=== PATIENT | male | born 1945 | race Caucasian/White ===

== ENCOUNTER → 2019-11-21 10:15 | Outpatient (CLI) | payer OTHER, SELFPAY ==
--- NOTE | ~2019-11-21 | CT_ITS ---
EXAMINATION: CT sinus wo con DATE: 11/21/2019 10:40 INDICATION: Chronic sinusitis TECHNIQUE: Computed tomography (CT) of the paranasal sinuses was performed without intravenous contra st. The dose-length product (DLP) was 290.62 mGy-cm. Iterative reconstruction was used. COMPARISON: 06/29/2006 FINDINGS: There is normal development and pneumatization of the paranasal sinuses. There is minimal o pacification in the lateral aspect of the right frontal sinus. There is moderate opacification of the anterior and posterior ethmoidal air cells. There is opacification with associated sclerosis in the lateral aspect of the left sphenoid sinus, consistent with chronic sinusitis. There is mild mucosal t hickening of the maxillary sinuses, right greater than left. The bilateral ostiomeatal complexes are occluded. Visualized soft tissues are unremarkable. IMPRESSION: 1. Sinus disease as detailed above. Reviewed, dictated and finalized at location A.
== END ==
PROVIDERS: PCP Family Medicine; Visit Provider Allergy & Immunology
DX: J32.9 Chronic sinusitis, unspecified (principal)
CPT/HCPCS: 70486

== ENCOUNTER → 2022-01-31 14:48 | Outpatient (CLI) | payer OTHER, SELFPAY ==
--- NOTE | ~2022-01-31 | CT_ITS ---
EXAMINATION: CT lung screening DATE: 01/31/2022 15:03 INDICATION: Personal history nicotine dependence, prior smoker with 150 pack year history TECHNIQUE: Computed tomography (CT) of the chest was performed without intravenous contrast. The dose -length product (DLP) was 189.79 mGy-cm. 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 COMPARISON: 08/31/2016 FINDINGS: There is mild emphysema. There is a 3 mm nodule in the left upper lobe. There are stable 4 mm nodules of the left lower lobe. No pleural effusion or pneumothorax. There is mild dependent atele ctasis. The lungs are free of focal airspace opacities. Calcified pulmonary nodules and calcified selvin ateral hilar and mediastinal lymph nodes are consistent with old granulomatous disease. No pathologic ally enlarged thoracic lymph nodes are identified. The heart size is normal. There is moderate thorac ic spondylosis. IMPRESSION: 1. Lung-RADS category 2: Benign appearance or behavior. Continue annual screening with noncontrast lo w-dose chest CT in 12 months. Reviewed, dictated and finalized at location F. RTILITY NURSE IMPRESSION: 1. Lung-RADS category 2: Benign appearance or behavior. Continue annual screeni ng with noncontrast low-dose chest CT in 12 months.
== END ==
PROVIDERS: PCP Family Medicine; Visit Provider Family Medicine
DX: Z12.2 Encounter for screening for malignant neoplasm of respiratory organs (principal); Z87.891 Personal history of nicotine dependence
CPT/HCPCS: 71271

== ENCOUNTER 2023-01-04 23:38 | Emergency (ER) | payer OTHER, SELFPAY ==
--- NOTE | ~2023-01-04 | CT_ITS ---
Noncontrast CT scan of the lumbar spine CLINICAL HISTORY: Back pain TECHNIQUE: Axial noncontrast imaging of the lumbar spine was performed. Sagittal and coronal reformat essie images were constructed. Dose reduction technique was used on this scan by utilizing automated ex posure control and iterative reconstruction technique. The dose-length product (DLP) was 1220.57 mGy- cm. FINDINGS: No fracture or subluxation identified. Vertebral bodies maintain normal height and alignmen t. At L1-L2, there is mild disc bulge and mild facet arthropathy. No antione central canal stenosis or def inite neural foraminal narrowing. At L2-L3, there is disc bulge and moderate facet arthropathy. Questionable minimal central canal sten osis. Probable minimal bilateral neural foraminal narrowing. At L3-L4, there is disc bulge and moderate to advanced facet arthropathy. There is probable moderate to possibly severe central canal stenosis. There is moderate to severe right neural foraminal narrowi ng, and moderate left neural foraminal narrowing. At L4-L5, there is disc bulge and facet arthropathy. There is probable minimal central canal stenosis . There is severe bilateral neural foraminal narrowing. At L5-S1, there is minimal disc bulge. No central canal stenosis. There is mild to moderate bilateral neural foraminal narrowing, left worse than right. Paravertebral soft tissues are unremarkable. Impression: No fracture or subluxation. Moderate degenerative spondylosis, as above. Reviewed, dictated and finalized at [facility]. Impression: No fracture or subluxation. Moderate degenerative spondylosis, as above.
[2023-01-04 23:49] VITALS: BP 131/66; PULSE 92; RESP 14; TEMP 37.2; O2SAT 90
[2023-01-05] MEDS: HYDROcodone/acetaminophen (*CRX) 5-325 MG TABLET 2 TAB PO (05:09)
--- NOTE | 2023-01-05 06:37 | ED.BACK ---
HPI - Back Pain/Injury General Chief Complaint: Back Pain/Injury Stated Complaint: back pain Time Seen by Provider: 01/05/23 04:19 Source: patient History of Present Illness HPI Narrative: This is a 77 year old who presents with complaint of back pain. Patient notes he has chronic back pain. It started to flare a week ago on the left while he was brushing his teeth. He saw a chiropractor Monday and Monday and received some lidocaine injections. Just prior to arrival today, he was bending down and on his knees attempting to clean up coffee grounds on the floor. Note, he was kneeling at the time; pain did not cause him to fall. He required EMS to assist him up due to pain. He experienced acute onset pain on the right side of his back. He states in general heat helps. Pain radiates down his right buttock and into his knee where it terminates. He took a hydrocodone at 8pm through doesn't know the dosage. After it occurred, he called his PCP Nadeem Pickering who prescribed him a muscle relaxer which he took at 6pm. Not chronically on steroids. Denies tearing sensation. No syncope. Denies IVDU. No change in bowel/bladder, neither incontinence nor difficulty initiating a stream/bowel movement. No sensory deficits. Did not hit his head, no LOC. Denies dysuria or fevers. He Related Data Home Medications Medication Instructions Recorded Confirmed aspirin 325 mg tablet 325 mg PO DAILY 04/03/19 11/29/22 cholecalciferol (vitamin D3) 125 5,000 unit PO DAILY 04/03/19 11/29/22 mcg (5,000 unit) tablet (Vitamin D3) multivitamin 1 cap PO DAILY 04/03/19 11/29/22 tamsulosin 0.4 mg capsule 0.4 mg PO DAILY 04/03/19 11/29/22 vit C 250 mg-vit E 90 mg-zinc 40 1 tablet PO BID 04/03/19 11/29/22 mg-copper 1 bt-iqvxha-[id number] capsule fluticasone propionate 50 2 spray intranasal DAILY 12/12/19 11/29/22 mcg/actuation nasal spray,suspension bevacizumab 25 mg/mL intravenous intravitreal 01/06/20 11/29/22 solution (Avastin) ipratropium bromide 17 2 puff inhalation QID 01/06/20 11/29/22 mcg/actuation HFA aerosol inhaler (Atrovent HFA) ipratropium bromide 21 mcg (0.03 2 spray intranasal 05/25/22 11/29/22 %) nasal spray Allergies Allergy/AdvReac Type Severity Reaction Status Date / Time bacitracin Allergy Unknown Unknown Verified 12/05/22 14:08 benzalkonium chloride Allergy Unknown Unknown Verified 12/05/22 14:08 chlorhexidine Allergy Unknown Unknown Verified 12/05/22 14:08 gramicidin D Allergy Unknown Unknown Verified 12/05/22 14:08 hydrocortisone Allergy Unknown Unknown Verified 12/05/22 14:08 latex Allergy Unknown Skin Verified 12/05/22 14:08 Reaction polymyxin B Allergy Unknown Unknown Verified 12/05/22 14:08 BACITRACIN ZINC Allergy Unknown Unknown Uncoded 12/05/22 14:08 NEOMYCIN SULFATE Allergy Unknown Unknown Uncoded 12/05/22 14:08 POLYMYXIN B SULFATE Allergy Unknown Unknown Uncoded 12/05/22 14:08 [facility] Past Medical History Medical History Actinic keratoses Colon polyp Enlarged prostate Hearing loss Overweight (BMI 25.0-29.9) Prediabetes Vasomotor rhinitis Surgical History Surgical History History of left-sided carotid endarterectomy Family History Family History Father Family history of Alzheimer's disease Sibling Family history of malignant neoplasm of breast Mother Family history of malignant neoplasm of stomach Other Diabetes mellitus Family history of arthritis Social History Social History Smoking status: Former smoker Smoking end date: 03/20/17 Alcohol intake: current Lack of Transportation: No Lack of Food: Never True Current Housing: I Have Housing Concerned About Future Housing: No Difficulty Paying Gas/Electric Bills: No Difficulty Paying for Meds: No Cur
[2023-01-05 07:50] VITALS: BP 126/65; PULSE 70; RESP 12; O2SAT 95
== END 2023-01-05 07:52 | disposition home or self-care (01) ==
PROVIDERS: Emergency Provider Student in an Organized Health Care Education/Training Program; PCP Family Medicine
DX: Z87.891 Personal history of nicotine dependence (principal); S39.012A Strain of muscle, fascia and tendon of lower back, initial encounter; M54.30 Sciatica, unspecified side; M47.9 Spondylosis, unspecified; X58.XXXA Exposure to other specified factors, initial encounter
CPT/HCPCS: 72131; 99284; A9270

== ENCOUNTER 2024-05-16 08:02 | Outpatient (CLI) | payer OTHER, SELFPAY | END 2024-05-16 08:03 | disposition home or self-care (01) | LOC: MICIMG 08:03 | PROVIDERS: PCP Family Medicine; Visit Provider Orthopaedic Surgery | DX: M48.02 Spinal stenosis, cervical region (principal); M43.02 Spondylolysis, cervical region; M41.82 Other forms of scoliosis, cervical region | CPT/HCPCS: 72141 ==

== ENCOUNTER 2024-10-04 13:59 | Emergency (ER) | payer OTHER, SELFPAY ==
[2024-10-04 14:00] VITALS: BP 153/75; PULSE 73; RESP 18; TEMP 36.8; O2SAT 97
--- OUTSIDE RECORDS SUMMARY | 2024-10-04 14:01 | XMS_ITS | Encounter Summary ---
Author Organization [facility] Healthcare Address [address] [place] [address] Care Team Providers Care Pinion Polisher Name Role Phone Nadeem Paz MD Primary Care Provider [phone] Cole Albright MD Unavailable [phone] Reason for Visit * Reason Comments hand swelling Left hand, no known injury Encounter Details Date Type Department Care Team (Late st Contact Info) Description 10/04/2024 12:45 PM CDT Office Visit [facility] at [address] [address] Chani Walsh, DIRECTOR OF FINANCIAL AID [address] [place] [id number] Swelling of left hand (Primary Dx); Left hand pain Social History Tobacco Use Types Packs/Day Years Used Date Smoking Tobacco: Former Cigarettes Q uit: 07/10/2016 Smokeless Tobacco: Never Alcohol Use Standard Drinks/Week Comments Yes 0 (1 standard drink = 0.6 oz pur e alcohol) rarely AUDIT-C Answer Date Recorded Q1: How often do you have a drink containing alc ohol? Monthly or less 06/30/2022 Q2: How many drinks containi ng alcohol do you have on a typical day when you are drinking? 1 or 2 06/30/2022 Frequency of Binge Drinking Not on file 06/18 Personal Safety Answer Date Recorded Have you ever been in or are you currently in a harmful physical or emotional relationship or is someone making you feel afraid or unsafe? Denies 06/30/2022 Sex and Gender Information Value Date Recorded Sex Assigned at Not on file Legal Sex Male 1:43 AM GOVERNMENT RELATIONS DIRECTOR Gender Identity Male 04/16/2021 5:35 PM GOVERNMENT RELATIONS DIRECTOR Sexual Orientation Straight 04/16/2021 5: 35 PM GOVERNMENT RELATIONS DIRECTOR documented as of this encounter Last Filed Vital Signs Vital Sign Reading Time Taken Comments Blood Pressure 146/84 10/04/2024 12:49 PM CDT Pulse 87 10/04/2024 12:49 PM CDT Temperature 37 C (98.6 F) 10/04/2024 12:49 PM CDT Respiratory Rate 18 10/04/2024 12:49 PM CDT Oxygen Saturation 99% 10/04/2024 12:49 PM CDT Inhaled Oxygen Concentration - - Weight 84.8 kg (187 lb) 10/04/2024 12:49 PM CDT Height - - Body Mass Index 24.01 05/28/2024 11:19 AM CDT documented in this encounter Patient Instructions * Patient Instructions* Chani Walsh NP - 10/04/2024 12:45 PM CDT 79-year-old male patient presents today with complaints of right hand swelling that began on Monday. Patient reports the hand was significantly swollen until approximately Monday to Monday. Reports on Monday began having significant left hand swelling to the point he was unable to make a fist.Patient's hand remains swollen with what appears to be edema. Patient has no history of heart failure. Patient does have a history of rheumatoid. Patient does have erythema to the hand. Concerned forDVT versus cellulitis versus fluid overload. documented in this encounter Plan of Treatment Not on file documented as of this encounter Visit Diagnoses Diagnosis Swelling of left hand- Primary Left hand pain Pain in soft tissues of limb documented in this encounter Historical Medications * This list may reflect changes made after this encounter. tadalafiL (CIALIS) 20 mg tablet TAKE 1 TABLET BY MOUTH EVERY OTHER DAY NEEDED 09/12/2024 FLUoxetine (PROzac) 20 mg capsule Take 1 capsule (20 mg total) by mouth daily added in this encounter Care Teams Pinion Polisher Relationship Specialty Start Date End Date Nadeem Paz MD PCP - General 06/13/14 Cole Albright MD [id number] [place] [address] Surgeon Colon and Rectal Surgery 07/22/21 documented as of this encounter
--- OUTSIDE RECORDS SUMMARY | 2024-10-04 14:01 | XMS_ITS | Clinical Summary ---
Author Organization [facility] Address [address] [facility] [place] [address] Care Team Providers Care Red Mud Thickener Operator Name Role Phone Nadeem Paz MD Primary Care Provider [phone] [facility],non-owned Affiliates and Associated Physician Practices is amultiple site organization consisting of ambulatory clinics and hospital sitesin [place], [place], [place] and [place]. This disclosure is being madepursuant to the Care Everywhere program and may not contain all information available regarding this patient. Last updated 17.[facility] Allergies Active Allergy Reactions Criticality Noted Date Comments Adhesive Sensitivity Rash Medium 01/23/2021 Red rash, irritation and itching noted. Resolved with benadryl Bacitracin Rash Medium 06/02/2020 Chlorhexidine Gluconate Rash Medium 06/02/2020 Eroirwnl-Qzubjbkjsf-Quwwegmr n Itching Medium 04/03/2019 Medications * Be aware that medications may not be up to date on this document. Alwaysverify current medications with the patient. pentoxifylline CR (TRENTAL) 400 MG tablet Take 1 (one) tablet by mouth 3 times daily 9 Active primidone (MYSOLINE) 50 MG tablet Take 1 (one) tablet by mouth 4 times daily 9 Active rosuvastatin (CRESTOR) 40 MG tablet Take 1 (one) tablet by mouth at bedtime 9 Active tamsulosin (FLOMAX) 0.4 MG capsule Take 1 (one) capsule by mouth 2 times daily 0 Active Multiple Vitamins-Retort Fireman als (PRESERVISION AREDS 2) capsule Take 1 (one) capsule by mouth 2 times daily Active bevacizumab (AVASTIN) 400 MG/16ML injection 5 mg/kg by Intravenous route as needed (intravitreal injection to left eye and 11/10/20) Active Cholecalcifero l (VITAMIN D3 PO) Take 5,000 Units by mouth once daily Active Multiple Vitamin (MULTI-VITAMIN DAILY PO) Take 1 tablet by mouth once daily Active triamcinolone acetonide (KENALOG) 0.1 % cream Apply 1 Dose to affected area as needed Active polyethylene glycol 3350 (MIRALAX) 17 g packet Take 17 (seventeen) g by mouth once daily as needed for Constipation Active aspirin (ASPIRIN) 325 MG tablet Take 1 (one) tablet by mouth once daily 30 tablet 1 Active leflunomide (Arava) 20 MG tablet Take 1 (one) tablet by mouth once daily 3 Active ipratropium (Atrovent) 0.03 % nasal spray Wells 1-2 sprays into each nostril 3 times daily 30 mL 11 3 Active clobetasol (Temovate) 0.05 % cream Apply to affected area 2 times daily Active mupirocin (Bactroban) 2 % ointment Apply to affected area 3 times daily Active Restasis 0.05 % ophthalmic suspension Instill 1 (one) drop into both eyes every 12 hours Active FLUoxetine (PROzac) 20 MG capsule Take 1 (one) capsule by mouth once daily 4 Active lidocaine (Xylocaine) 2 % jelly Apply 1 g to affected area as needed Active Fluticasone Propionate (Xhance) 93 MCG/ACT EXHUIndication s:Nasal congestion Wells 1 spray into each nostril 2 times daily 16 mL 11 4 Active tadalafil (Cialis) 5 MG tablet Take 4 (four) tablets by mouth once daily 2 025 Discontin ued(List Clean-Up) hydroxychloroq uine (Plaquenil) 200 MG tablet Take 1 (one) tablet by mouth once daily 3 025 Discontin ued(List Clean-Up) lidocaine viscous (Xylocaine) 2 % solution 5 mL by Mouth/Throat route once 025 Discontin ued(List Clean-Up) Active Problems Problem Noted Date Diagnosed Date Stenosis of left carotid artery 01/22/2021 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 Carpal tunnel syndrome 06/03/2020 Full thickness rotator cuff tear 06/03/2020 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 Overview (06/03/2020): Description: Follows with Dr Albright Eczema 12/24/2012 Encounters Date Type Department Care Team Description 09/18/2024 11:15 AM CDT Office Visit [facility] - Vascular Surgery [address] [place] [address] Sunita Jade MD Bilateral carotid artery stenosis (Primary Dx) 09/18/2024 10:00 AM CDT - 09/18/2024 11:59 PM CDT Hospital Encounter [facility] [address] [place] [address] Sunita Jade MD Discharge Disposition: Home or Self Care 09/18/2024 Travel from Last 3 Months Immunizations Immunization Administration Dates Next Due Brandizi primary monoval ent 12+ yr 0.3mL Purple cap 01/07/2021,06/07/2020,05/12/2020 INFLUENZA VACCINE 01/07/2021, 0,01/16/2018,2017 INFLUENZA VACCINE, HIGH-DOSE , QUADR. (FLUZONE HIGH-DOSE QUADRIVALENT; 65Y+), 0.7 ML (HD-IIV4) 12/30/2021,01/07/2021 INFLUENZA VACCINE, QUADR. (A FLURIA, FLUZONE QUADRIVALENT; 6MO+) (IIV4) 04/19/2013 TD (ADULT), 5 LF TETANUS TOX OID, ADSORBED, PF 10/30/2020 iNFLUENZA VACCINE, RECOM-COLÓN, QUADR. (FLUBLOCK QUADRIVALENT; 18Y+) (RIV4) 12/11/2018 Social History Tobacco Use Types Packs/Day Years Used Date Smoking Tobacco: Former Cigarettes 3 50 1 968 - 2018 Smokeless Tobacco: Never Tobacco Cessation:Counseling Given: Not Answered Alcohol Use Standard Drinks/Week Comments Yes 0 (1 standard drink = 0.6 oz pur e alcohol) rare AUDIT-C Answer Date Recorded Frequency of Alcohol Consumption Never 03/03/2020 Average Number of Drinks Not on file 020 Frequency of Binge Drinking Not on file 02/17 PHQ-2 Answer Date Recorded Patient Health Questionnaire-2 Score 0 09/18/2024 Sex and Gender Information Value Date Recorded Sex Assigned at Male 03/03/2021 12:51 PM COLD STRIP ROLLER Legal Sex Male 4:31 AM COLD STRIP ROLLER Gender Identity Male 03/03/2021 12:51 PM COLD STRIP ROLLER Sexual Orientation Not on file Last Filed Vital Signs Vital Sign Reading Time Taken Comments Blood Pressure 154/74 09/18/2024 11:57 AM CDT Pulse 76 09/18/2024 11:51 AM CDT Temperature 36.4 C (97.6 F) 09/18/2024 11:51 AM CDT Respiratory Rate 18 08/31/2022 12:57 PM CDT Oxygen Saturation 98% 09/18/2024 11:51 AM CDT Inhaled Oxygen Concentration - - Weight 88.5 kg (195 lb) 09/18/2024 11:51 AM CDT Height 185.4 cm (6' 1) 09/18/2024 11:51 AM CDT Body Mass Index 25.73 09/18/2024 11:51 AM CDT Plan of Treatment Health Maintenance Due Date Last Done Comments LUNG CANCER SCREENING 1994 PNEUMOCOCCAL VACCINE 50+ (1 of 1 - PCV) 1994 ZOSTER VACCINE (1 of 2) 1994 Respiratory Syncytial Virus (RSV) Vaccine Pt: or over 60 yrs (1 - 1-dose 75+ series) 06/21/2019 COVID-19 VACCINE ( season) 2023 01/13/2022, 10/08/2021, 01/07/2021, Additional history exists INFLUENZA VACCINE (#1) 2024 , 01/07/2021, 01/07/2021, Additional history exists DTAP/TDAP/TD VACCINES (2 - Td or Tdap) 10/30/2030 10/30/2020 DEPRESSION SCREENING Completed 09/18/2024 HEPATITIS B VACCINE Aged Out No longe r eligible based on patient's age to complete this topic HIB VACCINE Aged Out No longer eligi ble based on patient's age to complete this topic HPV VACCINE Aged Out No longer eligi ble based on patient's age to complete this topic MENINGOCOCCAL (Group B) VACCINE SHARED DECISION-MAKING Aged Out No longer eligible based on patient's age to complete this topic MENINGOCOCCAL GROUPS A/C/Y/W VACCINE Aged Out No longer eligible based on patient's age to complete this topic Procedures Procedure Name Priority Date/Time Associated Diagnosis Comments VAS CAROTID DUPLEX BILATERAL Routine 09/18/2024 10:43 AM CDT Bilateral carotid artery stenosis from Last 3 Months Results * VAS CAROTID DUPLEX BILATERAL (09/18/2024 10:43 AM CDT) Anatomical Region Laterality Modality Neck Intravascular Ul trasound 09/18/2024 10:3 1 AM CDT Narrative Procedure Note Cole Thurman MD - 09/18/2024 Sunita Jade MD VASCULAR LAB ORDERABLES Vasile essie Result - Final from Last [address] [place] [address] [place] [address] MEDICARE [facility] [place] [address] [place] [address] Advance Directives Documents on File Type Date Recorded 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
--- OUTSIDE RECORDS SUMMARY | 2024-10-04 14:01 | XMS_ITS | Clinical Summary ---
Author Organization [facility] Address [address] [address] Care Team Providers Care Air Analysis Technician Name Role Phone Nadeem Paz MD Primary Care Provider [phone] Cole Albright MD Unavailable [phone] Allergies Active Allergy Reactions Criticality Noted Date Comments Adhesive Rash Medium Bacitracin Rash Medium Chlorhexidine Unknown 08/11/2022 Chlorhexidine Gluconate Rash Medium Neomycin Unknown 10/29/2018 Sxdvgyhn-Lnqfubclkg-Udpwgpsff Rash Medium Medications rosuvastatin (CRESTOR) 40 mg tablet nightly. 4 Active aspirin 325 mg tablet nightly. Active fluocinonide (LIDEX) 0.05 % external solution aaa scalp qd to bid prn 3 Active MULTIVITAMIN ORAL daily. 6 Active pentoxifylline ER (TRENtal) 400 mg CR tabletIndication s:Intermittent Claudication TK 1 T PO TID 2 8 Active primidone (MYSOLINE) 50 mg tablet QID 3 8 Active tamsulosin (FLOMAX) 0.4 mg extended release capsule TK 1 C PO HS 3 8 Active vit A/C/E/zinc/selen ium/copper (VISION FORMULA ORAL) nightly. Active ergocalciferol, vitamin D2, 2,000 unit tablet 5,000 Units daily Active triamcinolone (KENALOG) 0.1 % cream APPLY TOPICALLY TWICE DAILY NEEDED FOR RASH, APPLY THIN LAYER TO RASH ON ARMS AND LEGS TWICE DAILY 258 g 11 0 Active oeztvjaozyw-A4-h yaluronic acid 1,000 mg- 25 mcg-1.65 mg tablet Glucosamine Active cetirizine-pseud oephedrine ER (ZyrTEC-D) 5-120 mg per 12 hr tablet Zyrtec-D Active bevacizumab (AVASTIN) 25 mg/mL injection Infuse 5 mg/kg into a venous catheter once Active ipratropium (ATROVENT) 0.03 % nasal spray SPRAY 2 SPRAYS IN EACH NOSTRIL TWICE DAILY 0 Active UNABLE TO FIND Soothp eye drops Active leflunomide (ARAVA) 20 mg tabletIndication s:Rheumatoid Arthritis Take 1 tablet (20 mg total) by mouth daily Active hydrOXYchloroQUI NE (PLAQUENIL) 200 mg tablet Take 1 tablet (200 mg total) by mouth daily Active clobetasoL (TEMOVATE) 0.05 % ointment Apply topically daily Active cycloSPORINE (RESTASIS) 0.05 % ophthalmic emulsion 1 drop 2 (two) times a day Active fluticasone propionate (FLONASE) 50 mcg/actuation nasal spray Administer 1 spray into each nostril daily Active mupirocin 2 % ointment kit Apply topically as needed Active lidocaine jelly (XYLOCAINE) 2 % Apply topically as needed for pain Active FLUoxetine (PROzac) 20 mg capsule Take 1 capsule (20 mg total) by mouth daily Active tadalafiL (CIALIS) 20 mg tablet TAKE 1 TABLET BY MOUTH EVERY OTHER DAY NEEDED 5 Active Active Problems Problem Noted Date Diagnosed Date Macular degeneration 10/04/2024 Osteoarthritis 10/04/2024 Rheumatoid arthritis 10/04/2024 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 Prefers to do at next office visit. Benign and reassurance. History of nonmelanoma skin cancer 07/09/2015 Overview (06/30/2017): Description: NER .Sunprotection. 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 Overview (06/30/2017): Description: Follows with Dr Albright Pruritus ani 03/11/2015 Keratosis, senilis 01/05/2015 Overview (06/30/2017): Description: benign, reassurance Condyloma acuminatum 02/06/2014 Eczema 12/24/2012 Anal polyp 07/16/2010 Encounters Date Type Department Care Team Description 10/04/2024 12:45 PM CDT Office Visit [facility] Convenient Care at [address] [address] Chani Walsh, ELLIE Swelling of left hand (Primary Dx); Left hand pain from Last 3 Months Immunizations Immunization Administration Dates Next Due Influenza, Quadrivalent, Rec ombinant, Egg Free, Preservative Free, Intramuscular 12/11/2018 Influenza, Quadrivalent, Split, Intramuscular Influenza, Split 12/18/2017 Influenza, Trivalent, High D ose, Split, Preservative Free, Intramuscular 01/16/2018 Influenza, Unspecified 01/07/2021,12/31/2019 TD Preservative Free 10/30/2020 Surgical History Surgery Date Site/Laterality Comments EXAMINATION UNDER ANESTHESIA 05/05/2015 Examination under anesthesia with biopsies EXAMINATION UNDER ANESTHESIA 01/04/2004 Wide local excision of anal intraepithelial neoplasia lesions. EXAMINATION UNDER ANESTHESIA 07/19/2013 Examination under anesthesia with punch biopsy of perianal lesion. EXAMINATION UNDER ANESTHESIA 06/02/2010 Examination under anesthesia with excision of anal polyp times two, and biopsy of posterior anal canal. EXAMINATION UNDER ANESTHESIA 05/03/2004 Rigid proctoscopic examination. Examination of anal canal under anesthesia with biopsy. COLONOSCOPY KNEE SURGERY TREATMENT FISTULA ANAL SIGMOID RESECTION / RECTOPEXY EXAMINATION UNDER ANESTHESIA 11/10/2017 Examination under anesthesia with rubber band ligation of internal hemorrhoid 2. 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 counseled pt that if any lesion returns in this area, he should RTC immediately (Added by PATTI Conv) AIN grade III Arthritis Colorectal polyps Neuropathy Anal warts Grade III hemorrhoids 10/31/2017 Peripheral vascular disease Essential tremor Emphysema of lung (HCC) Family History Medical History Relation Name Comments No Known Problems Father Cancer Mother stomach cancer Colon polyps Mother Relation Name Status Comments Father Mother Social History Tobacco Use Types Packs/Day Years [...] on file Legal Sex Male 1:43 AM SECY Gender Identity Male 04/16/2021 5:35 PM SECY Sexual Orientation Straight 04/16/2021 5: 35 PM SECY Obstetrics History Last Filed Vital Signs Vital Sign Reading Time Taken Comments Blood Pressure 146/84 10/04/2024 12:49 PM CDT Pulse 87 10/04/2024 12:49 PM CDT Temperature 37 C (98.6 F) 10/04/2024 12:49 PM CDT Respiratory Rate 18 10/04/2024 12:49 PM CDT Oxygen Saturation 99% 10/04/2024 12:49 PM CDT Inhaled Oxygen Concentration - - Weight 84.8 kg (187 lb) 10/04/2024 12:49 PM CDT Height 188 cm (6' 2) 05/28/2024 11:19 AM CDT Body Mass Index 24.01 05/28/2024 11:19 AM CDT Plan of Treatment Health Maintenance Due Date Last Done Comments Depression Screening 1945 Hepatitis B Screening 1962 Pneumococcal vaccine 65+ (1 of 2 - PCV) 06/21/1963 Zoster Vaccine (1 of 2) 06/21/1963 Well Visit 65+ 2009 DTaP/Tdap/Td Vaccine (1 - Tdap) 10/31/2020 Fall Risk Assessment 07/01/2023 06/30/2022 Covid-19 Vaccine ( - 2023-2 5 season) 2023 01/07/2021, 06/07/2020, 05/12/2020 Influenza Vaccine (#1) 2024 1, 12/31/2019, 12/11/2018, Additional history exists Abdominal Aortic Aneurysm (A AA) Screen Completed 04/10/2019 Colon Cancer Screening-CT Colonography Discontinued 06/30/2022, 08/19/2016, 07/19/2013 Colon Cancer Screening-Colonoscopy Discontinued 06/30/2022, 08/19/2016, 07/19/2013 Colon Cancer Screening-DNA Stool Discontinued 06/30/2022, 08/19/2016, 07/19/2013 Colon Cancer Screening-FIT Discontinued 06/30, 08/19/2016, 07/19/2013 Colon Cancer Screening-FOBT Discontinued 06/18, 08/19/2016, 07/19/2013 Colon Cancer Screening-Sigmoidoscopy Discontinued 06/30/2022, 08/19/2016, 07/19/2013 Colorectal Cancer Screening Discontinued Procedures Procedure Name Priority Date/Time Associated Diagnosis Comments COLONOSCOPY 06/30/2022 8:45 AM CDT from Last 3 Months or Most Recently Relevant to Health Maintenance Results * COLONOSCOPY (06/30/2022 8:45 AM CDT) Anatomical Region Laterality Modality Other Narrative Procedure Note Cole Albright MD - 06/30/2022 8:45 AM CDT [facility] Patient Name: Mesfin Haro Procedure Date: 06/30/2022 8:45 AM Date of : 1945 Admit Type: Outpatient Age: 77 Gender: Male Attending MD: Cole Albright M.D. Room: [facility] ENDOSCOPY ROOM 02 Note Status: Finalized Procedure: Colonoscopy Indications: High risk colon cancer surveillance: Personalhistory of colonic polyps, Last colonoscopy: 2016 Referring MD: Nadeem Paz M.D. Providers: Cole Albright M.D. Medicines: Propofol per Anesthesia Complications: No immediate complications. Estimated blood loss: Minimal. Estimated Blood Loss: Estimated blood loss was minimal. Procedure: Pre-Anesthesia Assessment: - Immediately prior to administration ofmedications, the patient was re-assessed for adequacy to receive sedatives. - Sedation was administered by an anesthesia professional. General anesthesia was attained. - The heart rate, respiratory rate, oxygen saturations, blood pressure, adequacy of pulmonary ventilation, and response to care were monitored throughout the procedure. - The physical status of the patient wasre-assessed after the procedure. The benefits, risks and alternatives of theprocedure and sedation were discussed and informed consentwas obtained. All questions were answered. Please referto the signed informed consent document in the medical record. The scope was passed under direct vision.The [id number] Endoscsope was introduced through the anus and advanced to the the cecum, identifiedby appendiceal orifice and ileocecal valve. The colonoscopy was performed with ease. The patient tolerated the procedure well. The quality of thebowel preparation was excellent. The quality of the bowel preparation was evaluated using the BBPS (BostonBowel Preparation Scale) with scores of: Right Colon = 3, Transverse Colon = 3 and Left Colon = 3 (entiremucosa seen well with no residual staining, smallfragments of stool or opaque liquid). The total BBPS score equals 9. The bowel preparation used was SUPREP via split dose instruction. Bowel prep was administered using a split dose. Findings: A 3 mm polyp was found in the transverse colon. The polyp was removed with a cold biopsy forceps. Resection and retrieval were complete. Estimated blood loss was minimal. A 7 mm polyp was found in the descending colon. The polyp was removed with a cold biopsy forceps. Resection and retrieval were complete. Estimated blood loss was minimal. A 7 mm polyp was found in the sigmoid colon. The polyp was removedwith a cold biopsy forceps. Resection and retrieval were complete.Estimated blood loss was minimal. Impression: - One 3 mm polyp in the transverse colon, removedwith a cold biopsy forceps. Resected and retrieved. - One 7 mm polyp in the descending colon, removedwith a cold biopsy forceps. Resected and retrieved. - One 7 mm polyp in the sigmoid colon, removed witha cold biopsy forceps. Resected and retrieved. Recommendation: - Await pathology results. - Repeat colonoscopy in 3 years for surveillance. Electronically signed by Dr.Matthew Jose Ramon M.D. Cole Albright M.D. 06/30/2022 9:29:56 AM . Number of Addenda: 0 Note Initiated On: 06/30/2022 8:45 AM Recognized by the [employer] for promoting quality in endoscopy Cole Albright MD ENDOSCOPY PROCEDURES Final R esult from Last 3 Months or Most Recently Relevant to Health Maintenance Insurance MEDICARE [facility] Address: [address] [address] [place] [address] MEDICARE [facility] Address: [address] [address] [place] [address] MEDICARE [facility] Address: [address] [address] [place] [address] [facility] Address: [address] [address] [place] [address] Advance Directives For more information, please contact: [phone] * Full Code (Latest Code Status on File) Date Activated Date Inactivated Comments 06/30/2022 8:22 AM 06/30/2022 2:22 PM Care Teams Air Analysis Technician Relationship Specialty Start Date End Date Nadeem Paz MD PCP - General 06/13/14 Cole Albright MD [id number] [place] [address] Surgeon Colon and Rectal Surgery 07/22/21
--- OUTSIDE RECORDS SUMMARY | 2024-10-04 14:01 | XMS_ITS | Referral Summary ---
Author Organization [facility] Address [address] [address] Care Team Providers Care Mitten Sewer Name Role Phone Nadeem Paz MD Primary Care Provider [phone] Cole Albright MD Unavailable [phone] Encounters Date Type Department Care Team Description 10/04/2024 12:45 PM CDT Office Visit [facility] Convenient Care at [address] [address] Chani Walsh, ELLIE Swelling of left hand (Primary Dx); Left hand pain from Last 3 Months Allergies Active Allergy Reactions Criticality Noted Date Comments Adhesive Rash Medium Bacitracin Rash Medium Chlorhexidine Unknown 08/11/2022 Chlorhexidine Gluconate Rash Medium Neomycin Unknown 10/29/2018 Nzcfabuf-Zgehwbtbmc-Ywfzjwgzq Rash Medium Medications rosuvastatin (CRESTOR) 40 mg [...] RASH ON ARMS AND LEGS TWICE DAILY 454 g 11 0 Active gklmameqhvc-Q8-a yaluronic acid 1,000 mg- 25 mcg-1.65 mg [...] (05/11/2022): Added automatically from request for surgery [id number] Stenosis of left carotid artery 01/22/2021 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 Carpal tunnel syndrome 06/03/2020 Full thickness rotator cuff tear 06/03/2020 Grade III hemorrhoids 10/31/2017 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 Prefers to do at next office visit. Benign and reassurance. History of nonmelanoma skin cancer 07/09/2015 Overview (06/30/2017): Description: NER .Sunprotection. 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 Overview (06/30/2017): Description: Follows with Dr Jose Ramon Cook ani 03/11/2015 Keratosis, senilis 01/05/2015 Overview (06/30/2017): Description: benign, reassurance Condyloma acuminatum 02/06/2014 Eczema 12/24/2012 Anal polyp 07/16/2010 Immunizations Immunization Administration Dates Next Due Influenza, Quadrivalent, Rec ombinant, Egg Free, Preservative Free, Intramuscular 12/11/2018 Influenza, Quadrivalent, Split, Intramuscular Influenza, Split 12/18/2017 Influenza, Trivalent, High D ose, Split, Preservative Free, Intramuscular 01/16/2018 Influenza, Unspecified 01/07/2021,12/31/2019 TD Preservative Free 10/30/2020 Social History Tobacco Use Types Packs/Day Years [...] on file Legal Sex Male 1:43 AM CONTRACTING MANAGER Gender Identity Male 04/16/2021 5:35 PM CONTRACTING MANAGER Sexual Orientation Straight 04/16/2021 5: 35 PM CONTRACTING MANAGER Last Filed Vital Signs Vital Sign Reading [...] 05/28/2024 11:19 AM CDT Plan of Treatment Not on file Procedures Procedure Name Priority Date/Time Associated Diagnosis Comments COLONOSCOPY 06/30/2022 8:45 AM CDT from Last 3 Months or Most Recently Relevant to Health Maintenance Results * COLONOSCOPY (06/30/2022 8:45 AM CDT) Anatomical Region Laterality Modality Other Narrative Procedure Note Cole Albright MD - 06/30/2022 8:45 AM CDT [facility] Patient Name: Mesfin Haro Procedure Date: 06/30/2022 8:45 AM Date of : 1945 Admit Type: Outpatient Age: 77 Gender: Male Attending MD: Cole Albright M.D. Room: [facility] ENDOSCOPY ROOM 02 Note Status: Finalized Procedure: Colonoscopy Indications: High risk colon cancer surveillance: Personalhistory of colonic polyps, Last colonoscopy: 2016 Referring MD: Nadeem Paz M.D. Providers: Coel Albright M.D. Medicines: Propofol per Anesthesia Complications: [...] The scope was passed under direct vision.The [id number] Endoscsope was introduced through the anus and [...] On: 06/30/2022 8:45 AM Recognized by the [employer] for promoting quality in endoscopy Cole Albright MD ENDOSCOPY PROCEDURES Final R esult from Last 3 Months or Most Recently Relevant to Health Maintenance [place] [address] [address] [facility] [address] [place] [id number] [address] [facility] [place] [address] [place] [address] MEDICARE [facility] Address: [address] [address] [place] [address] [facility] Advance Directives For more information, please contact: [phone] * Full Code (Latest Code Status on File) Date Activated Date Inactivated Comments 06/30/2022 8:22 AM 06/30/2022 2:22 PM Care Teams Mitten Sewer Relationship Specialty Start Date End Date Nadeem Paz MD PCP - General 06/13/14 Cole Albright MD [address] [facility] [phone] [place] [address] Surgeon Colon and Rectal Surgery 07/22/21
--- OUTSIDE RECORDS SUMMARY | 2024-10-04 14:01 | XMS_ITS | Clinical Summary ---
Author Organization [facility] Address [address] [place] [address] Care Team Providers Care Errand Runner Name Role Phone Nadeem Paz MD Primary Care Provider [phone] Social History Tobacco Use Types Packs/Day Years Used Date Smoking Tobacco: Never Assessed Sex and Gender Information Value Date Recorded Sex Assigned at Not on file Legal Sex Male 11:53 AM CDT Gender Identity Not on file Sexual Orientation Not on file Plan of Treatment Health Maintenance Due Date Last Done Comments DTaP, Tdap and Td Vaccines ( 1 - Tdap) 06/21/1963 Pneumococcal Vaccine: 50+ Ye ars (1 of 1 - PCV) 1994 Zoster Vaccines (1 of 2) 1994 RSV Immunization or 60+ Years (1 - 1-dose 75+ series) 06/21/2019 COVID-19 Vaccine ( - 2023-2 5 season) 2023 Meningococcal B Vaccine Aged Out No l onger eligible based on patient's age to complete this topic Meningococcal Vaccine Aged Out No zaid sandra eligible based on patient's age to complete this topic RSV Immunizations Under 20 Months Aged Out No longer eligible based on patient's age to complete this topic Insurance [employer] MEDICARE PART A Care Teams Errand Runner Relationship Specialty Start Date End Date Nadeem Paz MD PCP - General FAMILY PRACTICE 12/31/18
--- OUTSIDE RECORDS SUMMARY | 2024-10-04 14:01 | XMS_ITS | Patient Health Record ---
Author Organization [facility] alda Address [address] [place] [address] Care Team Providers Care Paving Bed Maker Name Role Phone Nadeem Paz MD Primary Care Provider Unava Emeli Hernandez Unavailable [phone] Allergies Allergen (clinical drug ingredient) Drug/Non Drug Allergy documented on EMR Reaction Allergy Type Onset Date Status bacitracin Bacitracin Unknown Drug Allergy 10/29/2018 Acti ve chlorhexidine Chlorhexidine Unknown Drug Allergy 3 Active neomycin Neomycin Unknown Drug Allergy 10/29/2018 Active Results Component Value Reference Range Notes eGFR Reviewed date:10/24/2023 10:20:31 PM Interpretation: Performing Lab:[facility] , [address] [facility] [address] [facility] [address] Notes/Report: eGFR 75 >=60 mL/min/1.73 m2 Interpretive Data Reference Interval Normal >/= 90 mL/min/1.73m2 Mildly decreased* 60 - 89 mL/min/1.73m2 Mildly to moderately decreased 45 - 59 mL/min/1.73m2 Moderately to severely decreased 30 - 44 mL/min/1.73m2 Severely decreased 15 - 29 mL/min/1.73m2 Kidney Failure < 15 mL/min/1.73m2 *Relative to young adult level Estimated glomerular filtration rate is determined by the 2020 CKD-EPI equation recommended by the National Kidney Foundation (A Unifying Approach to GFR Estimation: Recommendations of the NKF-ASK Task Force on Reassessing the Inclusion of Race in Diagnosing Kidney Disease, JASN 2020). The CKD-EPI equation should not be used for patients with unstable renal function and has not been validated in children and those over 70. Current interpretive data was last reviewed 2021. Differential Automated Reviewed date:10/24/2023 10:20:31 PM Interpretation: Performing Lab:[facility] , [address] [facility]. [facility] [address] Notes/Report: Neut Abs 4.4 1.5-6.5 K/cumm ImmGran Abs 0.0 0.0-0.1 K/cumm Lymphocyte Abs 0.9 0.8-3.3 K/cumm Newport Abs 0.6 0.2-0.8 K/cumm Eos Abs 0.2 0.0-0.5 K/cumm Baso Abs 0.0 0.0-0.1 K/cumm Neut Pct 71.4 Interpretive Data Percent cell count reference ranges are not reported, since discordance with absolute values may lead to misinterpretation of CBC data. Current Interpretive Data was last revised on 2017. ImmGran Pct 0.3 Interpretive Data Percent cell count reference ranges are not reported, since discordance with absolute values may lead to misinterpretation of CBC data. Current Interpretive Data was last revised on 2017. Lymph Pct 14.9 Interpretive Data Percent cell count reference ranges are not reported, since discordance with absolute values may lead to misinterpretation of CBC data. Current Interpretive Data was last revised on 2017. Newport Pct 9.7 Interpretive Data Percent cell count reference ranges are not reported, since discordance with absolute values may lead to misinterpretation of CBC data. Current Interpretive Data was last revised on 2017. Eos Pct 3.4 Interpretive Data Percent cell count reference ranges are not reported, since discordance with absolute values may lead to misinterpretation of CBC data. Current Interpretive Data was last revised on 2017. Baso Pct 0.3 Interpretive Data Percent cell count reference ranges are not reported, since discordance with absolute values may lead to misinterpretation of CBC data. Current Interpretive Data was last revised on 2017. Comprehensive metabolic pane l (CMP) Reviewed date:10/24/2023 10:20:31 PM Interpretation: Performing Lab:[facility] , [address] [facility]. [place] [address] Notes/Report: Sodium 141 135-145 mmol/L Plasma Potassium 4.6 3.3-4.9 mmol/L Chloride 102 97-110 mmol/L Total CO2 28 22-32 mmol/L Anion Gap 11 2-15 mmol/L BUN 12 6-25 mg/dL Creatinine 1.02 0.80-1.30 mg/dL Glucose 89 70-199 mg/dL Interpretive Data Fasting glucose >/= 126 mg/dl is diagnostic for diabetes. Fasting is defined as no caloric intake for at least 8 hours. Fasting glucose between 100 mg/dl to 125 mg/dl is diagnostic of prediabetes. In a patient with classic symptoms of hyperglycemia or hyperglycemic crisis, a random glucose >/= 200 mg/dl is diagnostic for diabetes. In the absence of unequivocal hyperglycemia, results should be confirmed by repeat testing. The classification and Diagnosis of Diabetes Diabetes Care 2021; 46: S19-S40. Current interpretive data was last revised 2022. Total Calcium 9.1 8.5-10.3 mg/dL Total Bilirubin 0.2 0.1-1.2 mg/dL Plasma Total Protein 6.8 6.5-8.5 g/dL Albumin 4.2 3.5-5.0 g/dL Alkaline Phosphatase 52 40-130 Units/L ALT 21 7-55 Units/L AST 22 10-50 Units/L CBC w auto diff Reviewed date:10/24/2023 10:19:59 PM Interpretation:Lab Result Generalized Performing Lab:[facility] , [address] [place] [address]. [place] [address] Notes/Report: WBC 6.2 3.8-9.9 K/cumm Hgb 12.8 13.0-17.5 g/dL Hct 41.0 38.9-50.3 % Platelet Ct 181 150-400 K/cumm MPV 11.9 9.1-12.3 fL RBC 3.91 4.30-5.80 M/cumm MCV 104.9 81.3-96.4 fL MCH 32.7 27.1-33.3 pg MCHC 31.2 32.3-35.7 g/dL RDW CV 13.8 11.1-14.9 % RDW SD 53.2 35.7-48.1 fL NRBC Abs Auto 0.00 0.00-0.01 K/cumm CBC W/DIFF Reviewed date:02/23/2024 01:52:04 PM Interpretation:Lab Result Generalized Performing Lab:[facility], [address] [place] [address], [address] Notes/Report: WBC 6.6 3.5-10.5 10'3/uL RBC 3.56 (Based on docume nted legal sex) 4.30-5.80 10'6/uL HGB 11.5 (Based on docume nted legal sex) 13.0-17.5 g/dL HCT 36.0 (Based on docume nted legal sex) 38.0-50.0 % MCV 101.1 80.0-99.0 fL MCH 32.3 27.0-34.0 pg MCHC 31.9 32.0-35.5 g/dL RDW 14.0 11.0-15.0 % PLT 168 150-400 10'3/uL MPV 11.5 8.8-12.1 fL NRBC's 0.0 0.0 % Absolute NRBCs 0.0 No reference ran ge established 10'3/uL Neutrophils 68.0 34.0-73.0 % Lymphocytes 17.0 15.0-50.0 % Monocytes 10.9 1.0-15.0 % Eosinophils 3.3 0.0-8.0 % Basophils 0.5 0.0-2.0 % Immature Granulocytes 0.3 No defined reference range % Absolute Neutrophils 4.5 1.5-8.0 10'3/uL Absolute Lymphocytes 1.1 1.0-4.0 10'3/uL Absolute Monocytes 0.7 0.2-1.0 10'3/uL Absolute Eosinophils 0.2 0.0-0.6 10'3/uL Absolute Basophils 0.0 0.0-0.3 10'3/uL Absolute Immature Granulocytes 0.0 0.00-0.10 10'3/uL 02/23/2024 8:25 AM: P indicates partial results on a panel have been released. Additional results will follow. 02/23/2024 8:25 AM: This result has been final verified. No additional or changed results are expected. CMP(COMPREHENSIVE METABOLIC PANEL) Reviewed date:02/23/2024 01:52:04 PM Interpretation:Lab Result Generalized Performing Lab:[facility], [address], [place], [address] Notes/Report: Sodium 138 133-146 mmol/L Potassium 4.1 3.5-5.1 mmol/L Chloride 101 98-107 mmol/L Carbon Dioxide 32 21-31 mmol/L Anion Gap 5 4-13 mmol/L Blood Urea Nitrogen 17 7-25 mg/dL Creatinine 0.89 0.60-1.30 mg/dL eGFRcr (CKD-EPI 2020) 87 >=60 mL/min/1.73 m2 Calcium 8.9 8.3-10.5 mg/dL Glucose 84 70-100 mg/dL Protein, Total 6.3 6.4-8.3 g/dL Albumin 3.8 3.5-5.0 g/dL ALT 22 11-51 units/L Alkaline Phosphatase 55 34-104 units/L AST 22 13-39 units/L Bilirubin, Total 0.4 0.2-1.2 mg/dL COMPREHENSIVE METABOLIC PANE L (85667) Reviewed date:09/11/2024 08:08:03 AM Interpretation:Lab Result Generalized Performing Lab:[place], [id number], [id number] Skye Mora MD Notes/Report: GLUCOSE 97 65-99 mg/dL Fasting reference interval UREA NITROGEN (BUN) 11 7-25 mg/dL CREATININE 0.80 0.70-1.22 mg/dL EGFR 89 > OR = 60 mL/min/1.73m2 BUN/CREATININE RATIO SEE NOTE: 6-22 (calc) Not Reported: BUN and Creatinine are within reference range. SODIUM 131 135-146 mmol/L POTASSIUM 4.3 3.5-5.3 mmol/L CHLORIDE 95 98-110 mmol/L CARBON DIOXIDE 28 20-32 mmol/L CALCIUM 8.7 8.6-10.3 mg/dL PROTEIN, TOTAL 6.4 6.1-8.1 g/dL ALBUMIN 3.7 3.6-5.1 g/dL GLOBULIN 2.7 1.9-3.7 g/dL (calc) ALBUMIN/GLOBULIN RATIO 1.4 1.0-2.5 (calc) BILIRUBIN, TOTAL 0.5 0.2-1.2 mg/dL ALKALINE PHOSPHATASE 57 35-144 U/L AST 18 10-35 U/L ALT 18 9-46 U/L CBC (INCLUDES DIFF/PLT) (639 9) Reviewed date:09/11/2024 08:08:03 AM Interpretation:Lab Result Generalized Performing Lab:[place], [facility][id number] [place], [id number] Skye Mora MD Notes/Report: WHITE BLOOD CELL COUNT 7.8 3.8-10.8 Thousand/ uL RED BLOOD CELL COUNT 3.75 4.20-5.80 Million/uL HEMOGLOBIN 12.1 13.2-17.1 g/dL HEMATOCRIT 38.0 38.5-50.0 % MCV 101.3 80.0-100.0 fL MCH 32.3 27.0-33.0 pg MCHC 31.8 32.0-36.0 g/dL For adults, a slight decrease in the calculated MCHC value (in the range of 30 to 32 g/dL) is most likely not clinically significant; however, it should be interpreted with caution in correlation with other red cell parameters and the patient's clinical condition. RDW 12.5 11.0-15.0 % PLATELET COUNT 207 140-400 Thousand/uL MPV 11.2 7.5-12.5 fL ABSOLUTE NEUTROPHILS 5912 1640-1245 cells/uL ABSOLUTE LYMPHOCYTES 6295 559-8593 cells/uL ABSOLUTE MONOCYTES 686 200-950 cells/uL ABSOLUTE EOSINOPHILS 117 15-500 cells/uL ABSOLUTE BASOPHILS 23 0-200 cells/uL NEUTROPHILS 75.8 LYMPHOCYTES 13.6 MONOCYTES 8.8 EOSINOPHILS 1.5 BASOPHILS 0.3 Reason For Referral No Information Medications Medication SIG (Take, Route, Frequency, Duration) Notes Start Date End Date Status Triamcinolone Acetonide 0.1% prn External Active cycloSPORINE 0.05 % instill 1 drop into affected eye(s) by ophthalmic route every 12 hours ophthalmic (eye) 2 *Pick strength-form from ClearFit for eRX* Active Aspirin 325 MG one tablet daily Oral Active Cerovite Senior take 1 tablet by oral route once Oral 1 Active Glucosamine Chondroitin Complx 550-30-1 mg take 1 capsule by oral route once Oral 1 *Pick strength-form from ClearFit for eRX* Active Pentoxifylline ER 400 MG take 1 tablet (400 mg) by oral route 3 times per day with meals Oral 3 Active areds 3 - bid - *Reorder from ClearFit for eRx and Interaction Alerts* Active Soothe XP 1-4.5 % 1-2 drops in ea eye daily Ophthalmic *Pick strength-form from ClearFit for eRX* Active ZyrTEC-D Allergy & Congestion 5-120 MG take 1 tablet by oral route 2 times per day Oral 2 Active Xhance 93 MCG/ACT SPRAY TWO SPRAYS INTO THE NOSE TWO TIMES DAILY EACH NOSTRIL Nasal; Duration: 30 Days Active Vision Formula (U-C-F-Zn-nivia) 14,829-226-200 pupy-nk-urls take 1 capsule by oral route once oral 1 *Reorder from ClearFit for eRx and Interaction Alerts* Active Avastin intravitreal injection - left eye - *Reorder from ClearFit for eRx and Interaction Alerts* Active Leflunomide 20 MG 1 tablet Orally Once a day; Duration: 90 days 11/06/2024 Active MiraLax 17 GM take 17 gram mixed with 8 oz. water, juice, soda, coffee or tea by oral route once daily Oral 1 Active Rosuvastatin Calcium 40 MG take 1 tablet (40 mg) by oral route once daily Oral 1 Active PROzac 20 MG 1 capsule Orally Once a day Active Lidocaine Active Primidone 50 MG take 5 tablets (250 mg) by oral route 4 times per day Oral 4 Active Pentoxifylline ER 400 MG TAKE 1 TABLET BY MOUTH THREE TIMES DAILY Oral; Duration: 90 Days Active Metamucil 4 in 1 Fiber 55.6 % Take 1 tbsp daily Oral Active Problems Problem Type SNOMED Code ICD Code Onset Dates Problem Status W/U Status Risk Notes Problem Rheumatoid arthritis (43308527) Rheumatoid arthritis without rheumatoid factor, multiple sites (M06.09) Active confirmed Problem Osteoarthritis (338566572) Osteoarthritis, unspecified osteoarthritis type, unspecified site (M19.90) Active confirmed Problem Degenerative disorder of macula (978534625) Macular degeneration, unspecified laterality, unspecified type (H35.30) Active confirmed Vital Signs Heart Rate 63 /min 09/26/2024 Temperature 98.1 degrees Fahrenheit 09/26/2024 Height-cm 187.96 cm 09/26/2024 Blood pressure diastolic 80 mm Hg 09/26/2024 Oximetry 96 % 09/26/2024 Weight-kg 88.04 kg 09/26/2024 Height 74 in 09/26/2024 Blood pressure systolic 120 mm Hg 09/26/2024 Weight 194.1 lbs 09/26/2024 BMI 24.92 kg/m2 09/26/2024 Encounters Encounter Location Date Provider Diagnosis [facility] [address] [place] [address] 10/24/2023 Emeli Du Rheumatoid arthritis without rheumatoid factor, multiple sites M06.09 ; Osteoarthritis, unspecified osteoarthritis type, unspecified site M19.90 and High risk medication use Z79.899 [facility] [address] [place] [address] 11/02/2023 Emeli Du Rheumatoid arthritis without rheumatoid factor, multiple sites M06.09 ; Osteoarthritis, unspecified osteoarthritis type, unspecified site M19.90 ; High risk medication use Z79.899 and Macular degeneration, unspecified laterality, unspecified type H35.30 [facility] [address] [place] [address] 02/22/2024 Emeli Du Rheumatoid arthritis without rheumatoid factor, multiple sites M06.09 ; Osteoarthritis, unspecified osteoarthritis type, unspecified site M19.90 and High risk medication use Z79.899 [facility] [address] [place] [address] 05/30/2024 Emeli Du Rheumatoid arthritis without rheumatoid factor, multiple sites M06.09 ; Osteoarthritis, unspecified osteoarthritis type, unspecified site M19.90 and High risk medication use Z79.899 [facility] [address] [place] [address] 09/26/2024 Emeli Du Rheumatoid arthritis without rheumatoid factor, multiple sites M06.09 ; Osteoarthritis, unspecified osteoarthritis type, unspecified site M19.90 and High risk medication use Z79.899 [facility] [address] [place] [address] 11/01/2023 Emeli Du [facility] [address] [place] [address] 11/02/2023 Emeli Du [facility] [address] [place] [address] [facility] [address] [place] [address] [facility] [address] [place] [address] [facility] [address] [place] [address] 07/22/2024 [facility] [address] [place] [address] 08/08/2024 Emeli Assessments Encounter Date Diagnosis (ICD Code) Assessment Notes Treatment Notes Treatment Clinical Notes Section Notes 11/02/2023 Rheumatoid arthritis without rheumatoid factor, multiple sites (ICD-10 - M06.09) advised to sto p plaquenil per ophthalmology recommendation, advised him to call if arthritis flares up, continue arava, consider MTX 11/02/2023 Osteoarthritis, unspecified osteoarthritis type, unspecified site (ICD-10 - M19.90) advised to stop plaquenil per ophthalmology recommendation, advised him to call if arthritis flares up, continue arava, consider MTX 10/24/2023 Rheumatoid arthritis without rheumatoid factor, multiple sites (ICD-10 - M06.09) fingers ache a little, pain not severe, will continue arava and plaquenil, labs today, return in 3 months 02/22/2024 Rheumatoid arthritis without rheumatoid factor, multiple sites (ICD-10 - M06.09) mildly symptomatic, continue arva, labs today, return in 3 months 02/22/2024 Osteoarthritis, unspecified osteoarthritis type, unspecified site (ICD-10 - M19.90) mildly symptomatic, continue arva, labs today, return in 3 months 05/30/2024 Rheumatoid arthritis without rheumatoid factor, multiple sites (ICD-10 - M06.09) stable overall , continue arava, labs today, return in 3 months 09/26/2024 Rheumatoid arthritis without rheumatoid factor, multiple sites (ICD-10 - M06.09) symptomatic, start a medrol pack, continue arava, labs reviewed, return in 3 months 09/26/2024 Osteoarthritis, unspecified osteoarthritis type, unspecified site (ICD-10 - M19.90) symptomatic, start a medrol pack, continue arava, labs reviewed, return in 3 months 05/30/2024 Osteoarthritis, unspecified osteoarthritis type, unspecified site (ICD-10 - M19.90) stable overall, continue arava, labs today, return in 3 months 02/22/2024 High risk medication use (ICD-10 - Z79.899) mildly symptomatic, continue arva, labs today, return in 3 months 10/24/2023 Osteoarthritis, unspecified osteoarthritis type, unspecified site (ICD-10 - M19.90) fingers ache a little, pain not severe, will continue arava and plaquenil, labs today, return in 3 months 11/02/2023 High risk medication use (ICD-10 - Z79.899) advised to st op plaquenil per ophthalmology recommendation, advised him to call if arthritis flares up, continue arava, consider MTX 11/02/2023 Macular degeneration, unspecified laterality, unspecified type (ICD-10 - H35.30) advised to sto p plaquenil per ophthalmology recommendation, advised him to call if arthritis flares up, continue arava, consider MTX 10/24/2023 High risk medication use (ICD-10 - Z79.899) fingers ache a little, pain not severe, will continue arava and plaquenil, labs today, return in 3 months 05/30/2024 High risk medication use (ICD-10 - Z79.899) stable overal l, continue arava, labs today, return in 3 months 09/26/2024 High risk medication use (ICD-10 - Z79.899) symptomatic, start a medrol pack, continue arava, labs reviewed, return in 3 months Plan Of Treatment Pending Test Test Name Order Date CBC With Differential/Platelet Chem-Comprehensive 05/11/2023 CMP(COMPREHENSIVE METABOLIC PANEL) 10/23 CMP(COMPREHENSIVE METABOLIC PANEL) 05/30 CBC W/DIFF 05/30/2024 CBC W/DIFF 10/24/2023 Next Appt Details Provider Name:Emeli Ramon, 01/07 01:30:00 PM, [address] [facility] [address], [place], [address], Insurance Providers Payer Name Payer Address Payer Phone Subscriber Number Group Number Insured Name Patient Relationship to Insured Coverage Start Date Coverage End Date [facility] Network [address] [address] [place] [address] [id number] Abhijeet Pat Self - patient is the insured [facility] Shared Serv Non-Medic are [address] [address] [place], [place] [id number] Abhijeet Pat Self - patient is the insured 9 Medical (General) History Medical History History ICD Code Cervical spine fracture; Hyperlipidemia; Hypertension; Rheumatoid arthritis; Surgical History Surgery Date(Month/Year) Carpal tunnel release; 2018-11-14 Knee arthroscopy; 2018-11-14 hemorrhoidectomy; 2018-11-14 Rectal prolapse repair; 2018-11-14
--- OUTSIDE RECORDS SUMMARY | 2024-10-04 14:54 | XMS_ITS | Clinical Summary ---
Author Organization [facility] Address [address] [place] [address] Care Team Providers Care Continuous Vulcanizing Machine Operator Name Role Phone Nadeem Paz MD Primary Care Provider [phone] Social History Tobacco Use Types Packs/Day Years [...] Insurance [employer] MEDICARE PART A Care Teams Continuous Vulcanizing Machine Operator Relationship Specialty Start Date End Date Nadeem Paz MD PCP - General FAMILY PRACTICE 12/31/18
--- OUTSIDE RECORDS SUMMARY | 2024-10-04 14:54 | XMS_ITS | Encounter Summary ---
Author Organization [facility] Address [address] [place] [address] Care Team Providers Care Grad Intern Name Role Phone Nadeem Paz MD Primary Care Provider [phone] Cole Albright MD Unavailable [phone] Reason for Visit * Reason Comments hand swelling Left hand, no known injury Encounter Details Date Type Department Care Team (Late st Contact Info) Description 10/04/2024 12:45 PM CDT Office Visit [facility] at [address] [address] Chani Walsh, WORKERS COMPENSATION EXAMINER [address] [place] [address] Swelling of left hand (Primary Dx); [...] on file Legal Sex 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
--- OUTSIDE RECORDS SUMMARY | 2024-10-04 14:54 | XMS_ITS | Clinical Summary ---
Author Organization [facility] Address [address] [facility] [place] [address] Care Team Providers Care Marketing Communications Leader Name Role Phone Nadeem Paz MD Primary Care Provider [phone] Source Comments [facility] [employer],non-owned Affiliates and Associated Physician Practices is amultiple site organization consisting of ambulatory clinics and hospital sitesin [place], [place], [place] and [place]. This disclosure is being madepursuant to the Care Everywhere program and may not contain all information available regarding this patient. Last updated 17.[facility] [employer] Allergies Active Allergy Reactions Criticality Noted Date Comments Adhesive Sensitivity Rash Medium 01/23/2021 Red rash, irritation and itching noted. Resolved with benadryl Bacitracin Rash Medium 06/02/2020 Chlorhexidine Gluconate Rash Medium 06/02/2020 Jablfdmx-Vhkeuswucw-Ymskpbib n Itching Medium 04/03/2019 Medications * Be [...] mouth 2 times daily 0 Active Multiple Vitamins-Mds Coordinator als (PRESERVISION AREDS 2) capsule Take 1 [...] Active ipratropium (Atrovent) 0.03 % nasal spray Acton 1-2 sprays into each nostril 3 times [...] Propionate (Xhance) 93 MCG/ACT EXHUIndication s:Nasal congestion Acton 1 spray into each nostril 2 times [...] Description 09/18/2024 11:15 AM CDT Office Visit 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 Legal Sex Male 4:31 AM TRUCK DRIVER SUPERVISOR Gender Identity Male 03/03/2021 12:51 PM TRUCK DRIVER SUPERVISOR Sexual Orientation Not on file Last Filed [...] from Last [address] [place] [address] [address] [facility] [place] [place] [address] Advance Directives Documents on File Type Date Recorded Patient Feeder Loader Expl anation Adv Directive/Living Will/POA 08/03/2021 6:24 AM Adv Directive/Living Will/POA 01/26/2021 9:50 AM * Full Code (Latest Code Status on File) Date Activated Date Inactivated Comments 01/22/2021 3:37 PM 01/23/2021 1:13 PM Care Teams Marketing Communications Leader Relationship Specialty Start Date End Date Nadeem Paz MD [address] [place] [address] PCP - General 03/14/19
--- OUTSIDE RECORDS SUMMARY | 2024-10-04 14:54 | XMS_ITS | Referral Summary ---
Author Organization [facility] Address [address] [address] Care Team Providers Care Mechanical Expert Name Role Phone Nadeem Paz MD Primary Care Provider [phone] Cole Albright MD Unavailable [phone] Encounters Date Type Department Care Team Description 10/04/2024 12:45 PM CDT Office Visit [facility]ient Care at [address] [address] Chani Walsh, ELLIE Swelling of left hand (Primary Dx); Left hand pain from Last 3 Months Allergies Active Allergy Reactions Criticality Noted Date Comments Adhesive Rash Medium Bacitracin Rash Medium Chlorhexidine Unknown 08/11/2022 Chlorhexidine Gluconate Rash Medium Neomycin Unknown 10/29/2018 Iikkfwdo-Jhskzcqlba-Mpusijvxj Rash Medium Medications rosuvastatin (CRESTOR) 40 mg [...] TWICE DAILY 454 g 11 0 Active mkrdciixdug-N0-c yaluronic acid 1,000 mg- 25 mcg-1.65 mg [...] (05/11/2022): Added automatically from request for surgery [id number] Stenosis of left carotid artery 01/22/2021 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 Carpal tunnel syndrome 06/03/2020 Full thickness rotator cuff tear 06/03/2020 Grade III hemorrhoids 10/31/2017 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 Overview (10/31/2017): Added automatically from request for surgery [id number] Unintended weight loss 08/30/2016 Inflamed seborrheic keratosis [...] on file Legal Sex Male 1:43 AM NUTRITION PROGRAM INSTRUCTOR Gender Identity Male 04/16/2021 5:35 PM NUTRITION PROGRAM INSTRUCTOR Sexual Orientation Straight 04/16/2021 5: 35 PM NUTRITION PROGRAM INSTRUCTOR Last Filed Vital Signs Vital Sign Reading [...] Albright MD - 06/30/2022 8:45 AM CDT [facility] Patient Name: Mesfin Haro Procedure Date: 06/30/2022 8:45 AM Date of : 1945 Admit Type: Outpatient Age: 77 Gender: Male Attending MD: Cole Albright M.D. Room: [facility] ENDOSCOPY ROOM 02 Note Status: Finalized [...] The scope was passed under direct vision.The [id number] Endoscsope was introduced through the anus and [...] On: 06/30/2022 8:45 AM Recognized by the [place] [employer] [employer]intestinal End[employer] for promoting quality in endoscopy Cole Albright MD ENDOSCOPY PROCEDURES Final R esult from Last 3 Months or Most Recently Relevant to Health Maintenance [place] [address] MED[address] [facility] [address] [place] [id number] [address] [facility] [place] [address] MEDICARE [facility] Address: [address] [address] [place] [address] [facility] Advance Directives For more information, please contact: [phone] * Full Code (Latest Code Status on File) Date Activated Date Inactivated Comments 06/30/2022 8:22 AM 06/30/2022 2:22 PM Care Teams Mechanical Expert Relationship Specialty Start Date End Date Nadeem Paz MD PCP - General 06/13/14 Cole Albright MD [address] [facility] [phone] [place] [address] Surgeon Colon and Rectal Surgery 07/22/21
--- OUTSIDE RECORDS SUMMARY | 2024-10-04 14:54 | XMS_ITS | Clinical Summary ---
Author Organization [facility] Address [address] [address] Care Team Providers Care Water Hydrant Installer Name Role Phone Nadeem Paz MD Primary Care Provider [phone] Cole Albright MD Unavailable [phone] Allergies Active Allergy Reactions Criticality Noted Date Comments Adhesive Rash Medium Bacitracin Rash Medium Chlorhexidine Unknown 08/11/2022 Chlorhexidine Gluconate Rash Medium Neomycin Unknown 10/29/2018 Svnmfvez-Sgndnzjbfk-Qxzokkcsj Rash Medium Medications rosuvastatin (CRESTOR) 40 mg [...] RASH ON ARMS AND LEGS TWICE DAILY 305 g 11 0 Active npenjarjuww-L5-b yaluronic acid 1,000 mg- 25 mcg-1.65 mg [...] (05/11/2022): Added automatically from request for surgery [id number] Stenosis of left carotid artery 01/22/2021 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 Carpal tunnel syndrome 06/03/2020 Full thickness rotator cuff tear 06/03/2020 Grade III hemorrhoids 10/31/2017 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 Overview (10/31/2017): Added automatically from request for surgery [id number] Unintended weight loss 08/30/2016 Inflamed seborrheic keratosis [...] Description 10/04/2024 12:45 PM CDT Office Visit [facility] Care at [address] [address] Cahni Walsh, ELLIE Swelling of left hand (Primary [...] on file Legal Sex Male 1:43 AM BUSINESS SYSTEMS MANAGER Gender Identity Male 04/16/2021 5:35 PM BUSINESS SYSTEMS MANAGER Sexual Orientation Straight 04/16/2021 5: 35 PM BUSINESS SYSTEMS MANAGER Obstetrics History Last Filed Vital Signs Vital [...] Albright MD - 06/30/2022 8:45 AM CDT [facility] Patient Name: Mesfin Haro Procedure Date: 06/30/2022 8:45 AM Date of : 1945 Admit Type: Outpatient Age: 77 Gender: Male Attending MD: Cole Albright M.D. Room: [facility] ENDOSCOPY ROOM 02 Note Status: Finalized [...] The scope was passed under direct vision.The [id number] Endoscsope was introduced through the anus and [...] On: 06/30/2022 8:45 AM Recognized by the [place] [employer] for Gastrointestinal Endoscopy for promoting quality in endoscopy Cole Albright MD ENDOSCOPY PROCEDURES Final R esult from Last 3 Months or Most Recently Relevant to Health Maintenance Insurance [facility]IC[facility] [place] [address] [facility] Advance Directives For more information, please contact: [phone] * Full Code (Latest Code Status on File) Date Activated Date Inactivated Comments 06/30/2022 8:22 AM 06/30/2022 2:22 PM Care Teams Water Hydrant Installer Relationship Specialty Start Date End Date Nadeem Paz MD PCP - General 06/13/14 Cole Albright MD [id number] [place] [address] Surgeon Colon and Rectal Surgery 07/22/21
--- NOTE | 2024-10-04 15:20 | ED_ITS ---
HPI - Extremity Problem General Chief complaint: Extremity Problem,Nontraumatic Stated complaint: swelling in the hands Time Seen by Provider: 10/04/24 14:44 History of Present Illness HPI Narrative: 79-year-old male presents emergency department for evaluation for bilateral hand swelling. Patient states that hand swelling has been going on for the past few weeks but felt that has worsened over the last few days. Patient denies any cough cold fevers. Patient denies any body aches or fatigue. Patient does have follow-up scheduled with rheumatology. Related Data Home Medications ?Medication ?Instructions ?Recorded ?Confirmed ?Last Taken ?Type aspirin 325 mg tablet 325 mg PO DAILY 04/03/19 05/28/24 Unknown History cholecalciferol (vitamin D3) 125 5,000 unit PO DAILY 04/03/19 05/28/24 Unknown History mcg (5,000 unit) tablet (Vitamin D3) multivitamin 1 cap PO DAILY 04/03/19 05/28/24 Unknown History tamsulosin 0.4 mg capsule 0.4 mg PO DAILY 04/03/19 05/28/24 Unknown History vit C 250 mg-vit E 90 mg-zinc 40 1 tablet PO BID 04/03/19 05/28/24 Unknown History mg-copper 1 vp-knnlbc-brdbfw capsule bevacizumab 25 mg/mL intravenous intravitreal 01/06/20 05/28/24 Unknown History solution (Avastin) ipratropium bromide 21 mcg (0.03 2 spray intranasal 05/25/22 05/28/24 Unknown History %) nasal spray cyclosporine 0.05 % eye drops in a drp EACH EYE 05/31/23 05/28/24 Unknown History dropperette fluticasone propionate 93 intranasal 05/31/23 05/28/24 Unknown History mcg/actuation breath activated aerosol (Xhance) leflunomide 20 mg tablet mg PO 05/31/23 05/28/24 Unknown History oxybutynin chloride 5 mg mg PO 12/07/23 05/28/24 Unknown History tablet,extended release 24 hr Allergies Allergy/AdvReac Type Severity Reaction Status Date / Time bacitracin Allergy Unknown Unknown Verified 10/04/24 14:05 benzalkonium chloride Allergy Unknown Unknown Verified 10/04/24 14:05 chlorhexidine Allergy Unknown Unknown Verified 10/04/24 14:05 gramicidin D Allergy Unknown Unknown Verified 10/04/24 14:05 hydrocortisone Allergy Unknown Unknown Verified 10/04/24 14:05 latex Allergy Unknown Skin Verified 10/04/24 14:05 Reaction polymyxin B Allergy Unknown Unknown Verified 10/04/24 14:05 BACITRACIN ZINC Allergy Unknown Unknown Uncoded 10/04/24 14:05 NEOMYCIN SULFATE Allergy Unknown Unknown Uncoded 10/04/24 14:05 POLYMYXIN B SULFATE Allergy Unknown Unknown Uncoded 10/04/24 14:05 Review of Systems Review of Systems: All systems reviewed & are unremarkable except as noted in HPI and below PMFSH Past Medical History Medical History Enlarged prostate Colon polyp Actinic keratoses Hearing loss Overweight (BMI 25.0-29.9) Prediabetes Vasomotor rhinitis Surgical History Surgical History History of left-sided carotid endarterectomy Family History Family History Father Family history of Alzheimer's disease Sibling Family history of malignant neoplasm of breast Mother Family history of malignant neoplasm of stomach Other Diabetes mellitus Family history of arthritis Social History Social History (Updated 04/12/24 @ 10:07 by Missy Spann CMA) Smoking status: Former smoker Smoking end date: 03/20/17 Alcohol intake: current Current Housing: Decline to Answer Concerned About Future Housing: Decline to Answer Difficulty Paying Gas/Electric Bills: Decline to Answer Difficulty Paying for Meds: Decline to Answer Currently Unemployed: Decline to Answer Education: Decline to Answer Difficulty w/ Childcare or Family Care: Decline to Answer Exam Narrative: APPEARANCE: Well appearing, no pain, no distress, well-nourished. HEAD: normocephalic, atraumatic. EYES: PERRLA/EOMI, conjunctivae clear. NOSE: Normal no drainage EARS:TMS clear with good light reflex. THROAT: Pharynx clear, no exudate. NECK: Supple. No adenopathy, no masses. RESPIRATORY: Airway patent, respirations nonlabored. Clear to auscultation bilaterally, no rales, rhonchi, wheezing. CARDIOVASCULAR: Regular rate and rhythm without murmurs rubs or gallops. ABDOMINAL: Soft, nontender, nondistended, normal bowel sounds MUSCULOSKELETAL: Erythema and edema of the left hand NEURO: Alert. Cranial nerves II through XII intact. Good gait. Good coordination SKIN: Warm, dry. Normal Color Course Vital Signs Vital signs: Vital Signs Temperature 98.3 F 10/04/24 14:00 Pulse Rate 73 10/04/24 14:00 Respiratory Rate 18 10/04/24 14:00 Blood Pressure 153/75 H 10/04/24 14:00 Pulse Oximetry 97 10/04/24 14:00 Oxygen Delivery Room Air 10/04/24 14:00 Temperature 97.8 F 10/04/24 15:27 Pulse Rate 74 10/04/24 15:27 Respiratory Rate 18 10/04/24 15:27 Blood Pressure 148/80 H 10/04/24 15:27 Pulse Oximetry 98 10/04/24 15:27 Oxygen Delivery Room Air 10/04/24 14:00 MDM - Extremity (Nontraumatic) MDM Narrative Medical decision making narrative: 79-year-old male presents emergency department for evaluation for swelling of the left hand. Patient reports he does have some mild swelling of the right hand as well but this is barely noticeable on exam. Patient has no tenderness to palpation of the left hand, patient states this is similar to his previous diagnosed arthritis. Patient states he did have recent follow-up with his occupational therapist home based and was having left hand swelling at that time. Patient was treated with a course of antibiotics and states there was no change. Patient was treated with Kenalog in the emergency department and also started on Keflex. Patient was encouraged of close follow-up with primary care physicians. All questions concerns were addressed patient was well-appearing at time of discharge. Discharge Plan Discharge Clinical Impression: Hand swelling Patient Disposition: Home Condition: Stable Instructions: Antibiotic Form Additional Instructions: Have close follow-up with your occupational therapist home based as scheduled. Antibiotics as directed until completed. Patient Language: [place] Citizen Prescriptions: New cephalexin 500 mg capsule 500 mg PO BID 7 Days Qty: 14 0RF No Action cholecalciferol (vitamin D3) [Vitamin D3] 125 mcg (5,000 unit) tablet 5,000 unit PO DAILY tamsulosin 0.4 mg capsule 0.4 mg PO DAILY aspirin 325 mg tablet 325 mg PO DAILY multivitamin Capsule 1 cap PO DAILY vit C,A-By-wslkz-lutein-zeaxan [id number] to-cyak-as-mg capsule 1 tablet PO BID Rx Instructions: administer with meals ipratropium bromide 21 mcg (0.03 %) spray,non-aerosol 2 spray intranasal Avastin 25 mg/mL solution intravitreal clobetasol 0.05 % solution 1 applic topical DAILY Qty: 50 1RF Xhance 93 mcg/actuation aerosol breath activated intranasal leflunomide 20 mg tablet PO cyclosporine 0.05 % dropperette EACH EYE oxybutynin chloride 5 mg tablet extended release 24hr PO lidocaine HCl 2 % jelly 1 applic TOPICAL BID PRN (Reason: pain) Qty: 30 3RF mupirocin 2 % ointment 1 applic topical TID Qty: 22 3RF triamcinolone acetonide 0.1 % cream 1 applic TOPICAL BID PRN (Reason: itching) Qty: 453.6 1RF pentoxifylline 400 mg tablet extended release 400 mg PO TID Qty: 270 1RF rosuvastatin 40 mg tablet See Rx Instructions .ROUTE .COMPLEX Qty: 90 1RF Dose Instruction: TAKE 1 TABLET BY MOUTH DAILY Rx Instructions: TAKE 1 TABLET BY MOUTH DAILY primidone 50 mg tablet See Rx Instructions .ROUTE .COMPLEX Qty: 360 1RF Dose Instruction: TAKE 1 TABLET 4 TIMES DAILY Rx Instructions: TAKE 1 TABLET 4 TIMES DAILY fluoxetine [Prozac] 20 mg capsule 20 mg PO DAILY Qty: 90 1RF Follow-up/Referrals: Nadeem Paz MD [Primary Care Provider] -
[2024-10-04] MEDS: TRIAMCINOLONE ACET INJ 40 MG/ML VIAL 80 MG IM (15:25)
[2024-10-04] MEDS: CEPHALEXIN 500 MG CAPSULE PO (15:25)
[2024-10-04 15:27] VITALS: BP 148/80; PULSE 74; RESP 18; TEMP 36.6; O2SAT 98
== END 2024-10-04 15:29 | disposition home or self-care (01) ==
PROVIDERS: Emergency Provider Emergency Medicine; PCP Family Medicine
DX: R22.32 Localized swelling, mass and lump, left upper limb (principal); N40.0 Benign prostatic hyperplasia without lower urinary tract symptoms; R73.03 Prediabetes; Z87.891 Personal history of nicotine dependence; Z86.0100 Personal history of colon polyps, unspecified; Z79.82 Long term (current) use of aspirin; Z79.899 Other long term (current) drug therapy
CPT/HCPCS: 96372; 99283; A9270; J3301

== ENCOUNTER 2024-10-19 00:32 | Emergency (ER) | payer OTHER, SELFPAY ==
--- NOTE | ~2024-10-19 | XR_ITS ---
EXAMINATION: XR knee RT 3V DATE: 10/19/2024 02:24 INDICATION: Nontraumatic right knee pain TECHNIQUE: Anteroposterior, oblique and crosstable lateral views of the right knee were obtained COMPARISON: None. FINDINGS: Alignment is normal. No fracture. Joint spaces appear normal on nonweightbearing imaging. Moderate-s ized right knee joint effusion without layering lipohemarthrosis. Mild prepatellar soft tissue swelli ng. Atherosclerotic calcifications along the distal femoral and popliteal arteries. IMPRESSION: 1. Moderate-sized right knee joint effusion. No osseous abnormality. Reviewed, dictated and finalized at location A.
[2024-10-19 00:35] VITALS: BP 119/66; PULSE 69; RESP 20; TEMP 36.6; O2SAT 99
[2024-10-19 01:24] VITALS: BP 136/75; PULSE 60; RESP 18; O2SAT 95
[2024-10-19 02:23] LABS: Hematocrit 33.0 % (42.0-52.0); Hemoglobin 11.3 g/dL (14.0-18.0); Immature Granulocyte Percent A 0.8 % (0-0.5); Lymphocytes Absolute Auto 0.43 K/mm3 (0.9-3.2); Mean Corpuscular HGB Conc 34.2 g/dl (32-36); Mean Corpuscular Hemoglobin 32.8 pg (26-34); Mean Corpuscular Volume 95.9 fl (80-100); Nucleated Red Blood Cells Absolute Auto 0.000 K/mm3 (0.0-0.012); Nucleated Red Blood Cells Perc 0.0 % (0.0-0.2); Platelet Count Result 230 k/mm3 (150-375); Red Blood Count 3.44 M/mm3 (4.6-6.20); White Blood Count 14.3 K/mm3 (4.5-10.0)
--- OUTSIDE RECORDS SUMMARY | 2024-10-19 02:44 | XMS_ITS | Clinical Summary ---
Author Organization [facility] Address [address] [place] [address] Care Team Providers Care Gas Meter Repair Supervisor Name Role Phone Nadeem Paz MD Primary Care Provider [phone] Source Comments [facility],non-owned Affiliates and Associated Physician Practices is amultiple site organization consisting of ambulatory clinics and hospital sitesin [place], [place], [place] and [place]. This disclosure is being madepursuant to the Care Everywhere program and may not contain all information available regarding this patient. Last updated 17.[facility] Allergies Active Allergy Reactions Criticality Noted Date Comments Adhesive Sensitivity Rash Medium 01/23/2021 Red rash, irritation and itching noted. Resolved with benadryl Bacitracin Rash Medium 06/02/2020 Chlorhexidine Gluconate Rash Medium 06/02/2020 Xpxcvqmt-Czfhtirbno-Teapcohm n Itching Medium 04/03/2019 Medications * Be [...] mouth 2 times daily 0 Active Multiple Vitamins-Minera ls (PRESERVISION AREDS 2) capsule Take 1 (one) capsule by mouth 2 times daily Active bevacizumab (AVASTIN) 400 MG/16ML injection 5 mg/kg by Intravenous route as needed (intravitreal injection to left eye and 11/10/20) Active Cholecalciferol (VITAMIN D3 PO) Take 5,000 Units by [...] Active ipratropium (Atrovent) 0.03 % nasal spray [place]ton 1-2 sprays into each nostril 3 times [...] needed Active Fluticasone Propionate (Xhance) 93 MCG/ACT EXHUIndications :Nasal congestion [place] 1 spray into each nostril 2 times daily 16 mL 11 4 Active Active Problems Problem Noted Date Diagnosed Date Stenosis of left carotid artery 01/22/2021 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 Carpal tunnel syndrome 06/03/2020 Full thickness rotator cuff tear 06/03/2020 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 Overview (06/03/2020): Description: Follows with Dr Albright Eczema 12/24/2012 Encounters Date Type Department Care Team Description 09/18/2024 11:15 AM CDT Office Visit [facility] - Vascular Surgery [address] [facility] [place] [address] Sunita Jade MD Bilateral carotid artery stenosis (Primary Dx) 09/18/2024 10:00 AM CDT - 09/18/2024 11:59 PM CDT Hospital Encounter [facility]ULAR [facility] [address] [place] [address] Sunita Jade MD Discharge Disposition: Home or Self Care 09/18/2024 Travel from Last 3 Months Immunizations Immunization Administration Dates Next Due [employer] primary monoval ent 12+ yr 0.3mL Purple [...] Sex Assigned at Male 03/03/2021 12:51 PM AIR CONDITIONING MECHANIC Legal Sex Male 4:31 AM AIR CONDITIONING MECHANIC Gender Identity Male 03/03/2021 12:51 PM AIR CONDITIONING MECHANIC Sexual Orientation Not on file Last Filed [...] - Final from Last 3 Months Insurance MEDICARE [facility] [address] [id number] Advance Directives Documents on File Type Date Recorded Patient Deicer Repairer Electric Expl anation Adv Directive/Living Will/POA 08/03/2021 6:24 AM Adv Directive/Living Will/POA 01/26/2021 9:50 AM * Full Code (Latest Code Status on File) Date Activated Date Inactivated Comments 01/22/2021 3:37 PM 01/23/2021 1:13 PM Care Teams Gas Meter Repair Supervisor Relationship Specialty Start Date End Date Nadeem Paz MD [address] [place] [address] PCP - General 03/14/19
--- OUTSIDE RECORDS SUMMARY | 2024-10-19 02:44 | XMS_ITS | Clinical Summary ---
Author Organization [facility] Address [address] [address] Care Team Providers Care Fish And Wildlife Technician Name Role Phone Nadeem Paz MD Primary Care Provider [phone] Cole Albright MD Unavailable [phone] Allergies Active Allergy Reactions Criticality Noted Date Comments Adhesive Rash Medium Bacitracin Rash Medium Chlorhexidine Unknown 08/11/2022 Chlorhexidine Gluconate Rash Medium Neomycin Unknown 10/29/2018 Pcyqamns-Gqhwcldmlk-Yzwwjdwao Rash Medium Medications rosuvastatin (CRESTOR) 40 mg [...] RASH ON ARMS AND LEGS TWICE DAILY 989 g 11 0 Active cilxwrshzwo-I1-d yaluronic acid 1,000 mg- 25 mcg-1.65 mg [...] (05/11/2022): Added automatically from request for surgery [id number] Stenosis of left carotid artery 01/22/2021 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 Carpal tunnel syndrome 06/03/2020 Full thickness rotator cuff tear 06/03/2020 Grade III hemorrhoids 10/31/2017 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 Overview (10/31/2017): Added automatically from request for surgery [id number] Unintended weight loss 08/30/2016 Inflamed seborrheic keratosis [...] Description 10/04/2024 12:45 PM CDT Office Visit [facility] Convenient Care at [address] [address] Chani Walsh, ELLIE Swelling of [...] vascular disease Essential tremor Emphysema of lung Family History Medical History Relation Name Comments [...] on file Legal Sex Male 1:43 AM BELLY ROLLER Gender Identity Male 04/16/2021 5:35 PM BELLY ROLLER Sexual Orientation Straight 04/16/2021 5: 35 PM BELLY ROLLER Obstetrics History Last Filed Vital Signs Vital [...] Fall Risk Assessment 07/01/2023 06/30/2022 Covid-19 Vaccine (4 - 2023-2 5 season) 2023 01/07/2021, 06/07/2020, [...] Albright MD - 06/30/2022 8:45 AM CDT [facility] Patient Name: Mesfin Haro Procedure Date: 06/30/2022 8:45 AM Date of : 1945 Admit Type: Outpatient Age: 77 Gender: Male Attending MD: Cole Albright M.D. Room: [facility] ENDOSCOPY ROOM 02 Note Status: Finalized Procedure: [...] The scope was passed under direct vision.The [id number] Endoscsope was introduced through the anus and [...] On: 06/30/2022 8:45 AM Recognized by the [place] [employer] Gastrointestinal Endoscopy for promoting quality in endoscopy Cole Albright MD ENDOSCOPY PROCEDURES Final R esult from Last 3 Months or Most Recently Relevant to Health Maintenance Insurance MEDICARE [facility] MEDICARE [facility] [place] [address] MEDICARE [facility] Advance Directives For more information, please contact: [phone] * Full Code (Latest Code Status on File) Date Activated Date Inactivated Comments 06/30/2022 8:22 AM 06/30/2022 2:22 PM Care Teams Fish And Wildlife Technician Relationship Specialty Start Date End Date Nadeem Paz MD PCP - General 06/13/14 Cole Albright MD [id number] [place] [address] Surgeon Colon and Rectal Surgery 07/22/21
--- OUTSIDE RECORDS SUMMARY | 2024-10-19 02:45 | XMS_ITS | Referral Summary ---
Author Organization [facility] Address [address] [address] Care Team Providers Care Enterprise Applications Manager Name Role Phone Nadeem Paz MD Primary Care Provider [phone] Cole Albright MD Unavailable [phone] Encounters Date Type Department Care Team Description 10/04/2024 12:45 PM CDT Office Visit [facility] Medical Group Convenient Care at [address] [address] Chani Walsh, ELLIE Swelling of left hand (Primary Dx); Left hand pain from Last 3 Months Allergies Active Allergy Reactions Criticality Noted Date Comments Adhesive Rash Medium Bacitracin Rash Medium Chlorhexidine Unknown 08/11/2022 Chlorhexidine Gluconate Rash Medium Neomycin Unknown 10/29/2018 Pfadagld-Kflubnaqbd-Gzceqewje Rash Medium Medications rosuvastatin (CRESTOR) 40 mg [...] TWICE DAILY 454 g 11 0 Active rrcakjvwvlr-B4-s yaluronic acid 1,000 mg- 25 mcg-1.65 mg [...] (05/11/2022): Added automatically from request for surgery [id number] Stenosis of left carotid artery 01/22/2021 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 Carpal tunnel syndrome 06/03/2020 Full thickness rotator cuff tear 06/03/2020 Grade III hemorrhoids 10/31/2017 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 Room: [facility] ENDOSCOPY ROOM 02 Note Status: Finalized Procedure: [...] The scope was passed under direct vision.The [id number] Endoscsope was introduced through the anus and [...] Relevant to Health [place] [address] MEDICARE [facility] [address] [place] [id number] [address] [facility] [place] [address] MEDICARE [facility] Advance Directives For more information, please contact: [phone] * Full Code (Latest Code Status on File) Date Activated Date Inactivated Comments 06/30/2022 8:22 AM 06/30/2022 2:22 PM Care Teams Enterprise Applications Manager Relationship Specialty Start Date End Date Nadeem Paz MD PCP - General 06/13/14 Cole Albright MD [address]eness[address] [facility] [place] [id number] [place] [address] Surgeon Colon and Rectal Surgery 07/22/21
--- OUTSIDE RECORDS SUMMARY | 2024-10-19 02:45 | XMS_ITS | Clinical Summary ---
Author Organization [facility] Address [address] [place] [address] Care Team Providers Care Sub Assembly Team Worker Name Role Phone Nadeem Paz MD Primary Care Provider [phone] Social History Tobacco Use Types Packs/Day Years [...] Insurance [employer] MEDICARE PART A Care Teams Sub Assembly Team Worker Relationship Specialty Start Date End Date Nadeem Paz MD PCP - General FAMILY PRACTICE 12/31/18
--- OUTSIDE RECORDS SUMMARY | 2024-10-19 02:45 | XMS_ITS | Patient Health Record ---
Author Organization [facility] alda Address [address] [facility] [facility] [address] [place] [address] Care Team Providers Care Certified Coatings Inspector Name Role Phone Nadeem Paz MD Primary Care Provider Unava Emeli Hernandez Unavailable [phone] Allergies Allergen (clinical drug ingredient) Drug/Non Drug Allergy documented on EMR Reaction Allergy Type Onset Date Status bacitracin Bacitracin Unknown Drug Allergy 10/29/2018 Acti ve chlorhexidine Chlorhexidine Unknown Drug Allergy 3 Active neomycin Neomycin Unknown Drug Allergy 10/29/2018 Active Results Component Value Reference Range Notes CBC W/DIFF Reviewed date:02/23/2024 01:52:04 PM Interpretation:Lab Result Generalized Performing Lab:[facility], [address] [place] [address], [address] Notes/Report: WBC 6.6 3.5-10.5 10'3/uL RBC 3.56 [...] date:02/23/2024 01:52:04 PM Interpretation:Lab Result Generalized Performing Lab:[facility], [address] [place] [address], [address] Notes/Report: Sodium 138 133-146 mmol/L Potassium 4.1 [...] 13-39 units/L Bilirubin, Total 0.4 0.2-1.2 mg/dL eGFR Reviewed date:10/24/2023 10:20:31 PM Interpretation: Performing Lab:[facility] , [address] [facility]. [place] [address] Notes/Report: eGFR 75 >=60 mL/min/1.73 m2 Interpretive [...] Automated Reviewed date:10/24/2023 10:20:31 PM Interpretation: Performing Lab:[facility] , [address] [place] [address] Notes/Report: Neut Abs 4.4 1.5-6.5 K/cumm ImmGran Abs 0.0 0.0-0.1 K/cumm Lymphocyte Abs 0.9 0.8-3.3 K/cumm [place] Abs 0.6 0.2-0.8 K/cumm Eos Abs 0.2 [...] Interpretive Data was last revised on 2017. [place] Pct 9.7 Interpretive Data Percent cell count [...] Interpretive Data was last revised on 2017. CBC w auto diff Reviewed date:10/24/2023 10:19:59 PM Interpretation:Lab Result Generalized Performing Lab:[facility] , [address] [place] [address]. [facility] [address] Notes/Report: WBC 6.2 3.8-9.9 K/cumm Hgb 12.8 13.0-17.5 g/dL Hct 41.0 38.9-50.3 % Platelet Ct 181 150-400 K/cumm MPV 11.9 9.1-12.3 fL RBC 3.91 4.30-5.80 M/cumm MCV 104.9 81.3-96.4 fL MCH 32.7 27.1-33.3 pg MCHC 31.2 32.3-35.7 g/dL RDW CV 13.8 11.1-14.9 % RDW SD 53.2 35.7-48.1 fL NRBC Abs Auto 0.00 0.00-0.01 K/cumm COMPREHENSIVE METABOLIC PANE L (36007) Reviewed date:09/11/2024 08:08:03 AM Interpretation:Lab Result Generalized Performing Lab:[place], [facility][id number] [place], [id number] Skye Mora MD Notes/Report: GLUCOSE 97 65-99 [...] date:09/11/2024 08:08:03 AM Interpretation:Lab Result Generalized Performing Lab:ABEL, [facility]-Lmsvoi48867 [place], [id number] Skye Mora MD Notes/Report: WHITE BLOOD CELL [...] MPV 11.2 7.5-12.5 fL ABSOLUTE NEUTROPHILS 5912 4780-5807 cells/uL ABSOLUTE LYMPHOCYTES 7463 365-4224 cells/uL ABSOLUTE MONOCYTES 686 200-950 cells/uL ABSOLUTE EOSINOPHILS 117 15-500 cells/uL ABSOLUTE BASOPHILS 23 0-200 cells/uL NEUTROPHILS 75.8 LYMPHOCYTES 13.6 MONOCYTES 8.8 EOSINOPHILS 1.5 BASOPHILS 0.3 Comprehensive metabolic pane l (CMP) Reviewed date:10/24/2023 10:20:31 PM Interpretation: Performing Lab:[facility] , [address] [facility] [place] [address] Notes/Report: Sodium 141 135-145 mmol/L Plasma Potassium [...] classification and Diagnosis of Diabetes Diabetes Care 202; 46: S19-S40. Current interpretive data was last revised 2022. Total Calcium 9.1 8.5-10.3 mg/dL Total Bilirubin 0.2 0.1-1.2 mg/dL Plasma Total Protein 6.8 6.5-8.5 g/dL Albumin 4.2 3.5-5.0 g/dL Alkaline Phosphatase 52 40-130 Units/L ALT 21 7-55 Units/L AST 22 10-50 Units/L Reason For Referral No Information Medications Medication SIG (Take, Route, Frequency, Duration) Notes Start Date End Date Status Triamcinolone Acetonide 0.1% prn External Active cycloSPORINE 0.05 % instill 1 drop into affected eye(s) by ophthalmic route every 12 hours ophthalmic (eye) 2 *Pick strength-form from Invoiceable for eRX* Active Aspirin 325 MG one tablet daily Oral Active Cerovite Senior take 1 tablet by oral route once Oral 1 Active Glucosamine Chondroitin Complx 550-30-1 mg take 1 capsule by oral route once Oral 1 *Pick strength-form from Invoiceable for eRX* Active Pentoxifylline ER 400 MG take 1 tablet (400 mg) by oral route 3 times per day with meals Oral 3 Active areds 3 - bid - *Reorder from Invoiceable for eRx and Interaction Alerts* Active Soothe XP 1-4.5 % 1-2 drops in ea eye daily Ophthalmic *Pick strength-form from Invoiceable for eRX* Active ZyrTEC-D Allergy & Congestion 5-120 MG take 1 tablet by oral route 2 times per day Oral 2 Active Xhance 93 MCG/ACT SPRAY TWO SPRAYS INTO THE NOSE TWO TIMES DAILY EACH NOSTRIL Nasal; Duration: 30 Days Active Vision Formula (L-G-H-Zn-nivia) 14,040-226-200 xvih-tv-uiha take 1 capsule by oral route once oral 1 *Reorder from Invoiceable for eRx and Interaction Alerts* Active Avastin intravitreal injection - left eye - *Reorder from Invoiceable for eRx and Interaction Alerts* Active Leflunomide [...] W/U Status Risk Notes Problem Rheumatoid arthritis (33175315) Rheumatoid arthritis without rheumatoid factor, multiple sites (M06.09) Active confirmed Problem Osteoarthritis (445485531) Osteoarthritis, unspecified osteoarthritis type, unspecified site (M19.90) Active confirmed Problem Degenerative disorder of macula (478504267) Macular degeneration, unspecified laterality, unspecified type (H35.30) [...] 09/26/2024 Encounters Encounter Location Date Provider Diagnosis [facility] [address] [place] [address] 10/24/2023 Emeli Du Rheumatoid arthritis without rheumatoid factor, multiple sites M06.09 ; Osteoarthritis, unspecified osteoarthritis type, unspecified site M19.90 and High risk medication use Z79.899 [facility] [address] [place] [address] 11/02/2023 Emeli Du Rheumatoid arthritis without rheumatoid factor, multiple sites M06.09 ; Osteoarthritis, unspecified osteoarthritis type, unspecified site M19.90 ; High risk medication use Z79.899 and Macular degeneration, unspecified laterality, unspecified type H35.30 [facility] [address] [place] [address] 02/22/2024 Emeli Du Rheumatoid arthritis without rheumatoid factor, multiple sites M06.09 ; Osteoarthritis, unspecified osteoarthritis type, unspecified site M19.90 and High risk medication use Z79.899 [facility] [address] [place] [address] 05/30/2024 Emeli Du Rheumatoid arthritis without rheumatoid factor, multiple sites M06.09 ; Osteoarthritis, unspecified osteoarthritis type, unspecified site M19.90 and High risk medication use Z79.899 [facility] [address] [place] [address] 09/26/2024 Emeli Du Rheumatoid arthritis without rheumatoid factor, multiple sites M06.09 ; Osteoarthritis, unspecified osteoarthritis type, unspecified site M19.90 and High risk medication use Z79.899 [facility] [address] [place] [address] 11/01/2023 Emeli Du [facility] [address] [place] [address] 11/02/2023 Emeli Du [facility] [address] [place] [address] 01/16/[facility] [address] [place] [address] 02/06/2024 [facility] [address] [place] [address] 04/26/2024 [facility] [address] [place] [address] 07/22/2024 [facility] [address] [place] [address] 08/08/2024 Emeli Assessments Encounter Date Diagnosis (ICD [...] 05/30 CBC W/DIFF 05/30/2024 CBC W/DIFF 10/24/2023 Insurance Providers Payer Name Payer Address Payer Phone Subscriber Number Group Number Insured Name Patient Relationship to Insured Coverage Start Date Coverage End Date [facility] [address] [address] [place] [address] [id number] Abhijeet Pat Self - patient is the insured [facility] Shared Serv Non-Medic are [address] [address] [place], [place] [id number] Ahbijeet Pat Self - patient is the insured 9 Medical (General) History Medical History History ICD Code Cervical spine fracture; Hyperlipidemia; Hypertension; Rheumatoid arthritis; Surgical History Surgery Date(Month/Year) Carpal tunnel release; 2018-11-14 Knee arthroscopy; 2018-11-14 hemorrhoidectomy; 2018-11-14 Rectal prolapse repair; 2018-11-14
[2024-10-19] MEDS: ENOXAPARIN 100 MG/ML SYRINGE 86 MG SUB-Q (03:08)
[2024-10-19] MEDS: oxyCODONE/ACETAMINOPHEN (*CRX) 5-325 MG TABLET 1 TABLET PO (03:08)
[2024-10-19] MEDS: CEPHALEXIN 500 MG CAPSULE PO (03:09)
[2024-10-19 03:21] LABS: Anion Gap 4 mmol/L (4-12); Blood Urea Nitrogen 14 mg/dL (9-20); Calcium 8.4 mg/dL (8.4-10.2); Carbon Dioxide 24 mmol/L (22-30); Chloride 90 mmol/L (98-107); Estimated CRCL calculation 76 ml/min; Estimated Glomerular Filt Rate > 60; Glucose 118 mg/dL (65-110); Potassium 4.2 mmol/L (3.4-5.0); Sodium 118 mmol/L (137-145)
[2024-10-19 03:23] VITALS: BP 129/74; PULSE 59; RESP 17; O2SAT 97
--- NOTE | 2024-10-19 03:25 | ED_ITS ---
HPI - Extremity Problem General Chief complaint: Extremity Problem,Nontraumatic Stated complaint: leg pain Time Seen by Provider: 10/19/24 02:03 History of Present Illness HPI Narrative: Patient presenting here due to pain to his right knee, had given out on him. He does have history of rheumatoid arthritis and often has pain to his joints. No fevers or chills. Related Data Home Medications ?Medication ?Instructions ?Recorded ?Confirmed ?Last Taken ?Type aspirin 325 mg tablet 325 mg PO DAILY 04/03/19 10/14/24 Unknown History cholecalciferol (vitamin D3) 125 5,000 unit PO DAILY 04/03/19 10/14/24 Unknown History mcg (5,000 unit) tablet (Vitamin D3) multivitamin 1 cap PO DAILY 04/03/19 10/14/24 Unknown History vit C 250 mg-vit E 90 mg-zinc 40 1 tablet PO BID 04/03/19 10/14/24 Unknown History mg-copper 1 cn-lfffkc-krcjof capsule bevacizumab 25 mg/mL intravenous intravitreal 01/06/20 10/14/24 Unknown History solution (Avastin) ipratropium bromide 21 mcg (0.03 2 spray intranasal 05/25/22 10/14/24 Unknown History %) nasal spray cyclosporine 0.05 % eye drops in a drp EACH EYE 05/31/23 10/14/24 Unknown History dropperette fluticasone propionate 93 intranasal 05/31/23 10/14/24 Unknown History mcg/actuation breath activated aerosol (Xhance) leflunomide 20 mg tablet mg PO 05/31/23 10/14/24 Unknown History cyclosporine 0.05 % eye drops drp EACH EYE 10/14/24 10/14/24 Unknown History (Restasis MultiDose) desmopressin 0.1 mg tablet mg PO 10/14/24 10/14/24 Unknown History Allergies Allergy/AdvReac Type Severity Reaction Status Date / Time bacitracin Allergy Unknown Unknown Verified 10/19/24 00:39 benzalkonium chloride Allergy Unknown Unknown Verified 10/19/24 00:39 chlorhexidine Allergy Unknown Unknown Verified 10/19/24 00:39 gramicidin D Allergy Unknown Unknown Verified 10/19/24 00:39 hydrocortisone Allergy Unknown Unknown Verified 10/19/24 00:39 latex Allergy Unknown Skin Verified 10/19/24 00:39 Reaction polymyxin B Allergy Unknown Unknown Verified 10/19/24 00:39 BACITRACIN ZINC Allergy Unknown Unknown Uncoded 10/19/24 00:39 NEOMYCIN SULFATE Allergy Unknown Unknown Uncoded 10/19/24 00:39 POLYMYXIN B SULFATE Allergy Unknown Unknown Uncoded 10/19/24 00:39 Review of Systems 2 Review of Systems: All systems reviewed & are unremarkable except as noted in HPI and below PMFSH Past Medical History Medical History Enlarged prostate Colon polyp Actinic keratoses Hearing loss Overweight (BMI 25.0-29.9) Prediabetes Vasomotor rhinitis Surgical History Surgical History History of left-sided carotid endarterectomy Family History Family History Father Family history of Alzheimer's disease Sibling Family history of malignant neoplasm of breast Mother Family history of malignant neoplasm of stomach Other Diabetes mellitus Family history of arthritis Social History Social History (Updated 10/14/24 @ 13:01 by Isela Cohen MA) Smoking status: Former smoker Smoking end date: 03/20/17 Alcohol intake: current Drinks per week: 2 Substance use: never Current Housing: Decline to Answer Concerned About Future Housing: Decline to Answer Difficulty Paying Gas/Electric Bills: Decline to Answer Difficulty Paying for Meds: Decline to Answer Currently Unemployed: Decline to Answer Education: Decline to Answer Difficulty w/ Childcare or Family Care: Decline to Answer Exam 2 Narrative: EXAMINATION OF ORGAN SYSTEMS/BODY AREAS: Constitutional: Vital signs per nursing GENERAL:[No acute distress, non-toxic appearing.] HEAD: Normal with no signs of head trauma. EYES: EOMI, conjunctiva normal ENT: Hearing grossly intact LUNGS: Nonlabored breathing. HEART: [Regular rate and rhythm], normal DP pulse ABD: [Soft], [nontender to palpation] EXT: Pain with movement of right knee, no significant effusions felt, tenderness to palpation to the lateral knee behind the knee, no obvious deformity SKIN: [No rashes or lesions.] NEURO: [Alert and oriented x 3. No gross focal sensory or strength deficits.] PSYCH: Normal affect Course Vital Signs Vital signs: Vital Signs Temperature 97.8 F 10/19/24 00:35 Pulse Rate 69 10/19/24 00:35 Respiratory Rate 20 10/19/24 00:35 Blood Pressure 119/66 10/19/24 00:35 Pulse Oximetry 99 10/19/24 00:35 Oxygen Delivery Room Air 10/19/24 00:35 Temperature 97.8 F 10/19/24 00:35 Pulse Rate 59 L 10/19/24 03:23 Respiratory Rate 17 10/19/24 03:23 Blood Pressure 129/74 10/19/24 03:23 Pulse Oximetry 97 10/19/24 03:23 Oxygen Delivery Room Air 10/19/24 00:35 MDM - Extremity (Nontraumatic) MDM Narrative Medical decision making narrative: Patient here with R knee pain; h/o arthritis. X-ray on my independent interpretation does not show any obvious fracture. At this time given his history of arthritis, I suspect this is likely the cause, I doubt septic joint without any redness or tenderness or swelling, however will start him on antibiotics at this time and steroids. D-dimer is elevated, so I did give him a shot of Lovenox, and we will schedule him for ultrasound in the morning. BMP had not returned yet he has already been here for 3 hours and only appointment for DVT ultrasound in the morning was in 4 hours, they'd like to get home at this time if possible. // Unfortunately after they had left, BMP returned with sodium level 118. Unsure if this is lab error, though he has had low sodium in the past as never been this low, patient was not confused, had normal neurologic exam while we spoke, but I do feel he needs to return to the ER for at least recheck or treatment if it remains abnormal. I did call his phone number and left a voice mail. Did also call his for family members phone did not picking crew supervisor either. // I am now able to reach his family member, who is with the patient. She is currently picking him up to bring him back to the hospital. I did let her know about the abnormal lab and that he needs to come to the emergency room. She will bring him here. I did let her know that if he starts acting abnormal, altered, unsteady or anything else concerning, she is to call the ambulance again here immediately. She expresses understanding and agreement with the plan. I did update the oncoming ER physician. Lab Data 10/19/24 02:16 10/19/24 02:16 Labs: Lab Results 10/19/24 Range/Units 02:16 WBC 14.3 H (4.5-10.0) K/mm3 RBC 3.44 L (4.6-6.20) M/mm3 Hgb 11.3 L (14.0-18.0) g/dL Hct 33.0 L (42.0-52.0) % MCV 95.9 (80-100) fl MCH 32.8 (26-34) pg MCHC 34.2 (32-36) g/dl RDW 14.6 H (11.5-14.5) % Plt Count 230 (150-375) k/mm3 MPV 9.4 (7.4-10.4) fl Immature Gran % (Auto) 0.8 H (0-0.5) % Neut % (Auto) 87.3 H (45.5-73.1) % Lymph % (Auto) 3.0 L (18.3-44.2) % [place] % (Auto) 8.5 (2.6-8.5) % Eos % (Auto) 0.3 (0-4.4) % Baso % (Auto) 0.1 L (0.2-1.2) % Lymph # (Auto) 0.43 L (0.9-3.2) K/mm3 [place] # (Auto) 1.2 H (0.1-0.6) K/mm3 Eos # (Auto) 0.1 (0-0.3) K/mm3 Baso # (Auto) 0.0 (0.0-0.1) K/mm3 Abs Immat Gran (auto) 0.12 H (0.00-0.031) K/mm3 Absolute Neuts (auto) 12.5 H (1.3-6.7) K/mm3 Absolute Nucleated RBC 0.000 (0.0-0.012) K/mm3 Nucleated RBC % 0.0 (0.0-0.2) % D-Dimer 0.88 H (<0.48) ug/mL Sodium 118 L* (137-145) mmol/L Potassium 4.2 (3.4-5.0) mmol/L Chloride 90 L (98-107) mmol/L Carbon Dioxide 24 (22-30) mmol/L Anion Gap 4 (4-12) mmol/L BUN 14 (9-20) mg/dL Creatinine 0.76 (0.7-1.3) mg/dL Estim Creat Clear Calc 76 ml/min Estimated GFR > 60 (59 - ) Glucose 118 H (65-110) mg/dL Calcium 8.4 (8.4-10.2) mg/dL Discharge Plan Discharge Clinical Impression: Acute knee pain Patient Disposition: Home Condition: Stable Instructions: Knee Pain (ED) Additional Instructions: Please come back for the ultrasound at 7:30 a.m. in the morning. Please take the medications as prescribed, and follow-up with your doctor, but if you notice any worsening pain, especially if you notice any redness to the joint, fevers or chills, come back to the emergency room. Patient Language: Korean Prescriptions: New prednisone 20 mg tablet 40 mg PO DAILY 4 Days Qty: 8 0RF cephalexin 500 mg capsule 500 mg PO Q6H 7 Days Qty: 28 0RF No Action cholecalciferol (vitamin D3) [Vitamin D3] 125 mcg (5,000 unit) tablet 5,000 unit PO DAILY aspirin 325 mg tablet 325 mg PO DAILY multivitamin Capsule 1 cap PO DAILY vit C,A-St-ukyig-lutein-zeaxan [id number] go-imjn-jf-mg capsule 1 tablet PO BID Rx Instructions: administer with meals ipratropium bromide 21 mcg (0.03 %) spray,non-aerosol 2 spray intranasal desmopressin 0.1 mg tablet PO Restasis MultiDose 0.05 % drops EACH EYE Avastin 25 mg/mL solution intravitreal clobetasol 0.05 % solution 1 applic topical DAILY Qty: 50 1RF Xhance 93 mcg/actuation aerosol breath activated intranasal leflunomide 20 mg tablet PO cyclosporine 0.05 % dropperette EACH EYE lidocaine HCl 2 % jelly 1 applic TOPICAL BID PRN (Reason: pain) Qty: 30 3RF mupirocin 2 % ointment 1 applic topical TID Qty: 22 3RF triamcinolone acetonide 0.1 % cream 1 applic TOPICAL BID PRN (Reason: itching) Qty: 453.6 1RF pentoxifylline 400 mg tablet extended release 400 mg PO TID Qty: 270 1RF rosuvastatin 40 mg tablet See Rx Instructions .ROUTE .COMPLEX Qty: 90 1RF Dose Instruction: TAKE 1 TABLET BY MOUTH DAILY Rx Instructions: TAKE 1 TABLET BY MOUTH DAILY primidone 50 mg tablet See Rx Instructions .ROUTE .COMPLEX Qty: 360 1RF Dose Instruction: TAKE 1 TABLET 4 TIMES DAILY Rx Instructions: TAKE 1 TABLET 4 TIMES DAILY fluoxetine [Prozac] 20 mg capsule 20 mg PO DAILY Qty: 90 1RF Other Ambulatory Orders: US venous doppler LE RT (Routine) Timeframe: 20241019 Location: Determined by Patient Ordered By: Kitty Bourne Follow-up/Referrals: Nadeem Paz MD [Primary Care Provider] -
== END 2024-10-19 03:23 | disposition home or self-care (01) ==
PROVIDERS: Emergency Provider Emergency Medicine; PCP Family Medicine
DX: M25.561 Pain in right knee (principal); M06.9 Rheumatoid arthritis, unspecified; N40.0 Benign prostatic hyperplasia without lower urinary tract symptoms; R73.03 Prediabetes; Z86.0100 Personal history of colon polyps, unspecified; Z87.891 Personal history of nicotine dependence
CPT/HCPCS: 36415; 73562; 80048; 85025; 85380; 96372; 99283; A9270; J1650; J7512

== ENCOUNTER 2024-10-19 07:39 | Inpatient (IN) | payer MEDICARE, SELFPAY ==
[2024-10-19] VITALS (10 sets, daily range): BP systolic 126–181; BP diastolic 60–79; PULSE 65–84; RESP 16–21; TEMP 36.3–36.5; O2SAT 93–100; BMI 25.9
--- NOTE | ~2024-10-19 | XR_ITS ---
EXAMINATION: XR hand LT min 3V DATE: 10/19/2024 08:10 INDICATION: Right hand pain TECHNIQUE: Posteroanterior, oblique and lateral views of the right hand were obtained. COMPARISON: 11/16/2017 FINDINGS: Bone alignment is normal. No fracture. Mild polyarticular osteoarthritis involving majority of the [place] ints at the right hand and wrist. No erosions to suggest inflammatory arthritis. Loose osteochondral body versus heterotopic ossicle in the region of the triangular fibrocartilage complex. Soft tissues are unremarkable. IMPRESSION: 1. 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 Reviewed, dictated and finalized at location A.
--- NOTE | ~2024-10-19 | CT_ITS ---
EXAMINATION: CT brain wo con DATE: 10/19/2024 08:17 INDICATION: Head injury TECHNIQUE: Computed tomography (CT) of the head was performed without intravenous contrast. Sagittal and coronal reconstructions were performed. The mA was adjusted according to patient size. Iterative reconstruction technique was employed. The dose-length product was 605.33 mGy-cm. COMPARISON: head CT dated 07/31/1969 FINDINGS: No fracture. No acute intracranial hemorrhage, acute infarction or abnormal extra axial fluid collect ion. There is mild scattered white matter hypoattenuation consistent with chronic small vessel ischem ic disease. Ventricles are normal and symmetric. No mass/mass effect. Prominent mucosal thickening t he bilateral ethmoid and sphenoid sinuses.. Changes of bilateral intraocular lens replacement. The or bits and mastoid air cells are normal. IMPRESSION: 1. Normal aging brain. No fracture or acute intracranial process. Reviewed, dictated and finalized at location A.
--- NOTE | ~2024-10-19 | XR_ITS ---
EXAMINATION: XR knee RT 3V DATE: 10/19/2024 08:10 INDICATION: Right knee trauma TECHNIQUE: Anteroposterior, oblique and crosstable lateral views of the right knee were obtained COMPARISON: None. FINDINGS: Alignment is normal. No fracture. Persistent moderate-sized right knee joint effusion without layeri ng lipohemarthrosis. Soft tissues are unremarkable. Atherosclerotic calcifications at the distal thig h and to lesser degree at the proximal calf. IMPRESSION: 1. Moderate-sized right knee joint effusion with no acute osseous abnormality. Reviewed, dictated and finalized at location A.
--- NOTE | ~2024-10-19 | US_ITS ---
EXAMINATION: US venous doppler LE RT DATE: 10/19/2024 09:43 INDICATION: Right lower limb pain TECHNIQUE: Grayscale ultrasound images without and with compression and Doppler ultrasound images of the right lower extremity veins were obtained. COMPARISON: None. FINDINGS: The visualized portions of right common femoral vein, profunda (deep) femoral vein, femoral vein, pop liteal vein, peroneal trunk, posterior tibial veins, peroneal veins, gastrocnemius vein and greater s aphenous vein outflow are patent. There is some sluggish flow on grayscale cine imaging at the right popliteal vein. IMPRESSION: 1. No deep venous thrombosis in the right lower limb. Reviewed, dictated and finalized at location A.
--- NOTE | ~2024-10-19 | XR_ITS ---
EXAMINATION: XR chest 1V portable Exam Date/Time: 10/19/2024 18:34 CDT HISTORY: Hyponatremia and smoking history Comparison: 07/31/2016. RESULT: Lines, tubes, and devices: None. Lungs and pleura: Clear. Granulomatous calcifications. Biapical pleural scarring Cardiomediastinal silhouette: Stable. Calcified nodes. Other: No acute osseous or upper abdominal finding. IMPRESSION: No acute cardiopulmonary process. Reviewed, dictated and finalized at location K.
--- NOTE | ~2024-10-19 | XR_ITS ---
EXAMINATION: HAND-JASON ARTHRITIS 3+VIEWS DATE: 10/19/2024 10:10 INDICATION: Bilateral hand pain TECHNIQUE: Posteroanterior, lateral, and oblique views of the left and of the right hands were obtain ed. COMPARISON: None. COMPARISON: Bilateral hand radiographs dated 11/16/2017 FINDINGS: Right hand: Bone alignment is normal. No fracture. Polyarticular osteoarthritis, moderate severity at the third m etacarpophalangeal joint and mild involving the majority of the remaining joints at the right hand an d wrist. No erosions to suggest inflammatory arthritis. Loose osteochondral body versus heterotopic o ssicle in the region of the triangular fibrocartilage complex. Soft tissues are unremarkable. Left hand: Alignment is normal. No fracture. Polyarticular osteoarthritis, severe at the first interphalangeal j oint, moderate severity at the second metacarpophalangeal joint and mild at the majority of the remai arleth joints at the left hand and wrist. Peripheral IV at the dorsum of the distal left forearm. Soft tissues are unremarkable. IMPRESSION: 1. Polyarticular osteoarthritis, severe at the left first interphalangeal joint, moderate at the left second and right third metacarpophalangeal joints and mild at many of the remaining joints at the bi lateral hands and wrists. Reviewed, dictated and finalized at location A. IMPRESSION: 1. Polyarticular osteoarthritis, severe at the left first interphalangeal joint , moderate at the left second and right third metacarpophalangeal joints and mi ld at many of the remaining joints at the bilateral hands and wrists.
--- OUTSIDE RECORDS SUMMARY | 2024-10-19 07:41 | XMS_ITS | Clinical Summary ---
Author Organization [facility] Address [address] [address] Care Team Providers Care Automotive Specialty Technician Name Role Phone Nadeem Paz MD Primary Care Provider [phone] Cole Albright MD Unavailable [phone] Allergies Active Allergy Reactions Criticality Noted Date Comments Adhesive Rash Medium Bacitracin Rash Medium Chlorhexidine Unknown 08/11/2022 Chlorhexidine Gluconate Rash Medium Neomycin Unknown 10/29/2018 Rvhvnept-Nwzybnwyrt-Ecapzqbrm Rash Medium Medications rosuvastatin (CRESTOR) 40 mg [...] RASH ON ARMS AND LEGS TWICE DAILY 102 g 11 0 Active yyndjpktsgq-D3-k yaluronic acid 1,000 mg- 25 mcg-1.65 mg [...] (05/11/2022): Added automatically from request for surgery [id number] Stenosis of left carotid artery 01/22/2021 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 Carpal tunnel syndrome 06/03/2020 Full thickness rotator cuff tear 06/03/2020 Grade III hemorrhoids 10/31/2017 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 at [address] [address] Chani Walsh, ELLIE Swelling of [...] on file Legal Sex Male 1:43 AM PROOF TECHNICIAN Gender Identity Male 04/16/2021 5:35 PM PROOF TECHNICIAN Sexual Orientation Straight 04/16/2021 5: 35 PM PROOF TECHNICIAN Obstetrics History Last Filed Vital Signs Vital [...] Albright MD - 06/30/2022 8:45 AM CDT [facility] Patient Name: Mesfin Haro Procedure Date: 06/30/2022 8:45 AM Date of : 1945 Admit Type: Outpatient Age: 77 Gender: Male Attending MD: Cole Albright M.D. Room: [facility] ENDOSCOPY ROOM 02 Note Status: Finalized [...] The scope was passed under direct vision.The [id number] Endoscsope was introduced through the anus and [...] On: 06/30/2022 8:45 AM Recognized by the [place] [employer] for promoting quality in endoscopy Cole Albright MD ENDOSCOPY PROCEDURES Final R esult from Last 3 Months or Most Recently Relevant to Health Maintenance Insurance MEDICARE [facility] MEDICARE [facility] [place] [place] [address] MEDICARE [facility] Advance Directives For more information, please contact: [phone] * Full Code (Latest Code Status on File) Date Activated Date Inactivated Comments 06/30/2022 8:22 AM 06/30/2022 2:22 PM Care Teams Automotive Specialty Technician Relationship Specialty Start Date End Date Nadeem Paz MD PCP - General 06/13/14 Cole Albright MD [id number] [place] [address] Surgeon Colon and Rectal Surgery 07/22/21
--- OUTSIDE RECORDS SUMMARY | 2024-10-19 07:41 | XMS_ITS | Referral Summary ---
Author Organization [facility] Address [address] [address] Care Team Providers Care Audit Control Clerk Name Role Phone Nadeem Paz MD Primary Care Provider [phone] Cole Albright MD Unavailable Encounters Date Type Department Care Team Description 10/04/2024 12:45 PM CDT Office Visit [facility] at [address] [address] Chani Walsh, ELLIE Swelling of left hand (Primary Dx); Left hand pain from Last 3 Months Allergies Active Allergy Reactions Criticality Noted Date Comments Adhesive Rash Medium Bacitracin Rash Medium Chlorhexidine Unknown 08/11/2022 Chlorhexidine Gluconate Rash Medium Neomycin Unknown 10/29/2018 Moumkvzs-Xrjamrufeo-Yejfbiohn Rash Medium Medications rosuvastatin (CRESTOR) 40 mg [...] TWICE DAILY 454 g 11 0 Active aazfartjgsh-B5-l yaluronic acid 1,000 mg- 25 mcg-1.65 mg [...] (05/11/2022): Added automatically from request for surgery [id number] Stenosis of left carotid artery 01/22/2021 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 Carpal tunnel syndrome 06/03/2020 Full thickness rotator cuff tear 06/03/2020 Grade III hemorrhoids 10/31/2017 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 Room: [facility] ENDOSCOPY ROOM 02 Note Status: Finalized [...] The scope was passed under direct vision.The [id number] Endoscsope was introduced through the anus and [...] On: 06/30/2022 8:45 AM Recognized by the [place] [employer] for promoting quality in endoscopy Cole Albright MD ENDOSCOPY PROCEDURES Final R esult from Last 3 Months or Most Recently Relevant to Health Maintenance Insurance [place] [address] MEDICARE [facility] [address] [place] [id number] MEDICARE [facility] [address] [place] [address] MEDICARE [facility] Address: [address] [address] [place] [address] [facility] [place] [address] [facility] Advance Directives For more information, please contact: [phone] * Full Code (Latest Code Status on File) Date Activated Date Inactivated Comments 06/30/2022 8:22 AM 06/30/2022 2:22 PM Care Teams Audit Control Clerk Relationship Specialty Start Date End Date Nadeem Paz MD PCP - General 06/13/14 Cole Albright MD [address] [facility] [phone] [place] [address] Surgeon Colon and Rectal Surgery 07/22/21
--- OUTSIDE RECORDS SUMMARY | 2024-10-19 07:41 | XMS_ITS | Clinical Summary ---
Author Organization [facility] Address [address] [place] [id number] Care Team Providers Care Aluminum Hydroxide Process Operator Name Role Phone Nadeem Paz MD Primary Care Provider [phone] Social History Tobacco Use Types Packs/Day Years [...] Insurance [employer] MEDICARE PART A Care Teams Aluminum Hydroxide Process Operator Relationship Specialty Start Date End Date Nadeem Paz MD PCP - General FAMILY PRACTICE 12/31/18
--- OUTSIDE RECORDS SUMMARY | 2024-10-19 07:41 | XMS_ITS | Clinical Summary ---
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,non-owned Affiliates and Associated Physician Practices is amultiple site organization consisting of ambulatory clinics and hospital sitesin [place], [place] and [place]. This disclosure is being madepursuant to the Care Everywhere program and may not contain all information available regarding this patient. Last updated 17.[facility] Allergies Active Allergy Reactions Criticality Noted Date Comments Adhesive Sensitivity Rash Medium 01/23/2021 Red rash, irritation and itching noted. Resolved with benadryl Bacitracin Rash Medium 06/02/2020 Chlorhexidine Gluconate Rash Medium 06/02/2020 Eulzewnx-Woglyjhmxb-Ucwioyhg n Itching Medium 04/03/2019 Medications * Be [...] Active ipratropium (Atrovent) 0.03 % nasal spray [place] 1-2 sprays into each nostril 3 times [...] Propionate (Xhance) 93 MCG/ACT EXHUIndications :Nasal congestion [place] 1 spray into each nostril 2 times [...] Description 09/18/2024 11:15 AM CDT Office Visit [facility] - Vascular Surgery [address] [place] [address] Sunita Jade MD Bilateral carotid artery stenosis (Primary Dx) 09/18/2024 10:00 AM CDT - 09/18/2024 11:59 PM CDT Hospital Encounter [facility] [address] [place] [address] Sunita Jade MD Discharge Disposition: Home or Self Care 09/18/2024 Travel from Last 3 Months Immunizations Immunization Administration Dates Next Due [employer] primary monoval ent 12+ yr 0.3mL Purple [...] Sex Assigned at Male 03/03/2021 12:51 PM 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 Legal Sex Male 4:31 AM 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 Gender Identity Male 03/03/2021 12:51 PM 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 Sexual Orientation Not on file Last Filed [...] Final from Last 3 Months Insurance MEDICARE [facility] FABIANO ESCAMILLA [id number] Advance Directives Documents on File Type Date Recorded Patient Transfer Driver Expl anation Adv Directive/Living Will/POA 08/03/2021 6:24 AM Adv Directive/Living Will/POA 01/26/2021 9:50 AM * Full Code (Latest Code Status on File) Date Activated Date Inactivated Comments 01/22/2021 3:37 PM 01/23/2021 1:13 PM Care Teams 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
--- NOTE | 2024-10-19 07:49 | ED.GENADULT ---
HPI - General Adult General Chief complaint: Recheck/Abnormal Lab/Rx Stated complaint: told to come back by EDP Time Seen by Provider: 10/19/24 07:41 History of Present Illness HPI narrative: 79-year-old male presenting emergency department for evaluation for right knee pain. Patient was evaluated emergency department yesterday and was discharged home prior to his labs being resulted and was found that his sodium was 118. Patient states that he did have 2 additional falls this morning related to knee pain. Patient does not suspect he struck his head but patient is on blood thinners. 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 Patient reports posterior knee pain feels that when he stands that knee gives out. That was the cause of the 2 falls this morning. Patient does have some abrasions to the right knee. Patient is also complaining swelling of his left middle finger. Patient reports he has been eating and drinking well. Patient denies any recent illnesses coughs colds or fevers. Patient does have history of arthritis Related Data Home Medications ?Medication ?Instructions ?Recorded ?Confirmed ?Last Taken ?Type aspirin 325 mg tablet 325 mg PO DAILY 04/03/19 10/19/24 10/18/24 History cholecalciferol (vitamin D3) 125 5,000 unit PO DAILY 04/03/19 10/19/24 10/18/24 History mcg (5,000 unit) tablet (Vitamin D3) multivitamin 1 cap PO DAILY 04/03/19 10/19/24 10/18/24 History vit C 250 mg-vit E 90 mg-zinc 40 1 tablet PO BID 04/03/19 10/19/24 10/18/24 History mg-copper 1 zi-ioyvzs-vvpxsm capsule bevacizumab 25 mg/mL intravenous intravitreal 01/06/20 10/14/24 10/18/24 History solution (Avastin) ipratropium bromide 21 mcg (0.03 2 spray intranasal .COMPLEX 05/25/22 10/19/24 10/18/24 History %) nasal spray fluticasone propionate 93 intranasal 05/31/23 10/14/24 10/18/24 History mcg/actuation breath activated aerosol (Xhance) leflunomide 20 mg tablet mg PO 05/31/23 10/14/24 10/18/24 History cyclosporine 0.05 % eye drops drp EACH EYE 10/14/24 10/14/24 Unknown History (Restasis MultiDose) desmopressin 0.1 mg tablet mg PO 10/14/24 10/14/24 10/18/24 History Allergies Allergy/AdvReac Type Severity Reaction Status Date / Time bacitracin Allergy Unknown Unknown Verified 10/19/24 15:06 benzalkonium chloride Allergy Unknown Unknown Verified 10/19/24 15:06 chlorhexidine Allergy Unknown Unknown Verified 10/19/24 15:06 gramicidin D Allergy Unknown Unknown Verified 10/19/24 15:06 latex Allergy Unknown Skin Verified 10/19/24 15:06 Reaction polymyxin B Allergy Unknown Unknown Verified 10/19/24 15:06 BACITRACIN ZINC Allergy Unknown Unknown Uncoded 10/19/24 15:06 NEOMYCIN SULFATE Allergy Unknown Unknown Uncoded 10/19/24 15:06 POLYMYXIN B SULFATE Allergy Unknown Unknown Uncoded 10/19/24 15:06 Review of Systems Review of Systems: All systems reviewed & are unremarkable except as noted in HPI and below PMFSH Past Medical History Medical History Hyperlipidemia Essential (primary) hypertension Arthritis, rheumatoid Enlarged prostate Colon polyp Actinic keratoses Hearing loss Overweight (BMI 25.0-29.9) Prediabetes Vasomotor rhinitis Surgical History Surgical History History of left-sided carotid endarterectomy Family History Family History (Updated 10/19/24 @ 15:04 by Umm Evangelista RN) Father Family history of Alzheimer's disease Family history of arthritis Sibling Family history of malignant neoplasm of breast Mother Family history of malignant neoplasm of stomach Grandparent Diabetes mellitus Social History Social History Smoking status: Former smoker Alcohol intake: current Drinks per week: 2 Substance use: never Lack of Transportation: No Lack of Food: Never True Current Housing: Decline to Answer Concerned About Future Housing: Decline to Answer Difficulty Paying Gas/Electric Bills: Decline to Answer Difficulty Paying for Meds: Decline to Answer Currently Unemployed: Decline to Answer Education: Decline to Answer Difficulty w/ Childcare or Family Care: Decline to Answer Spiritual care concerns: No Exam Narrative: APPEARANCE: Well appearing, no pain, no distress, well-nourished. HEAD: normocephalic, atraumatic. EYES: PERRLA/EOMI, conjunctivae clear. NOSE: Normal no drainage EARS:TMS clear with good light reflex. THROAT: Pharynx clear, no exudate. NECK: Supple. No adenopathy, no masses. RESPIRATORY: Airway patent, respirations nonlabored. Clear to auscultation bilaterally, no rales, rhonchi, wheezing. CARDIOVASCULAR: Regular rate and rhythm without murmurs rubs or gallops. ABDOMINAL: Soft, nontender, nondistended, normal bowel sounds MUSCULOSKELETAL: Tenderness to posterior right knee with abrasions to anterior right knee, swelling of left middle finger NEURO: Alert. Cranial nerves II through XII intact. Good gait. Good coordination SKIN: Warm, dry. Normal Color Course Vital Signs Vital signs: Vital Signs Temperature 97.7 F 10/19/24 07:48 Pulse Rate 84 10/19/24 07:48 Respiratory Rate 16 10/19/24 07:48 Blood Pressure 155/69 H 10/19/24 07:48 Pulse Oximetry 97 10/19/24 07:48 Oxygen Delivery Room Air 10/19/24 07:48 Temperature 97.7 F 10/19/24 07:48 Pulse Rate 70 10/19/24 10:00 Respiratory Rate 17 10/19/24 09:31 Blood Pressure 157/79 H 10/19/24 09:31 Pulse Oximetry 100 10/19/24 09:31 Oxygen Delivery Room Air 10/19/24 07:48 Medical Decision Making [facility] Narrative Medical decision making narrative: 79-year-old male presents to the emergency department for evaluation for hyponatremia and right knee pain. X-ray was negative for acute fracture dislocation. Ultrasound was negative for DVT. Patient is afebrile but does have a leukocytosis of 14.2 hemoglobin of 12.4. Patient's INR is 1.1. Patient's sodium was 118. Urine was negative for infection. Patient does feel weak and has had [address] was negative for acute abnormality. Case was discussed with hospitalist patient was accepted for admission for further evaluation for his hyponatremia and generalized weakness. Differential Diagnosis Differential Diagnosis: Hip fracture, knee fracture, DVT, septic arthritis, pneumonia, subdural hematoma, subarachnoid hemorrhage, hyponatremia Vital Signs Vital Signs: Vital Signs Temperature 97.7 F 10/19/24 07:48 Pulse Rate 84 10/19/24 07:48 Respiratory Rate 16 10/19/24 07:48 Blood Pressure 155/69 H 10/19/24 07:48 Pulse Oximetry 97 10/19/24 07:48 Oxygen Delivery Room Air 10/19/24 07:48 Temperature 97.7 F 10/19/24 07:48 Pulse Rate 70 10/19/24 10:00 Respiratory Rate 17 10/19/24 09:31 Blood Pressure 157/79 H 10/19/24 09:31 Pulse Oximetry 100 10/19/24 09:31 Oxygen Delivery Room Air 10/19/24 07:48 Lab Data Lab results reviewed: Yes I reviewed the patient's lab results. 10/19/24 07:54 10/19/24 11:09 Labs: Lab Results 10/19/24 10/19/24 10/19/24 Range/Units 07:53 07:54 10:09 WBC 14.2 H (4.5-10.0) K/mm3 RBC 3.85 L (4.6-6.20) M/mm3 Hgb 12.4 L (14.0-18.0) g/dL Hct 36.6 L (42.0-52.0) % MCV 95.1 (80-100) fl MCH 32.2 (26-34) pg MCHC 33.9 (32-36) g/dl RDW 14.6 H (11.5-14.5) % Plt Count 258 (150-375) k/mm3 MPV 9.8 (7.4-10.4) fl Immature Gran % (Auto) 0.8 H (0-0.5) % Neut % (Auto) 92.0 H (45.5-73.1) % Lymph % (Auto) 2.6 L (18.3-44.2) % [place] % (Auto) 4.5 (2.6-8.5) % Eos % (Auto) 0.0 (0-4.4) % Baso % (Auto) 0.1 L (0.2-1.2) % Lymph # (Auto) 0.37 L (0.9-3.2) K/mm3 [place] # (Auto) 0.6 (0.1-0.6) K/mm3 Eos # (Auto) 0.0 (0-0.3) K/mm3 Baso # (Auto) 0.0 (0.0-0.1) K/mm3 Abs Immat Gran (auto) 0.12 H (0.00-0.031) K/mm3 Absolute Neuts (auto) 13.0 H (1.3-6.7) K/mm3 Absolute Nucleated RBC 0.000 (0.0-0.012) K/mm3 Nucleated RBC % 0.0 (0.0-0.2) % PT 14.5 (11.1-14.7) Seconds INR 1.1 APTT 39.8 H (22.3-36.8) Seconds Sodium 121 L (137-145) mmol/L Potassium 4.5 (3.4-5.0) mmol/L Chloride 93 L (98-107) mmol/L Carbon Dioxide 20 L (22-30) mmol/L Anion Gap 8 (4-12) mmol/L BUN 12 (9-20) mg/dL Creatinine 0.64 L (0.7-1.3) mg/dL Estim Creat Clear Calc 89 ml/min Estimated GFR > 60 (59 - ) Glucose 154 H (65-110) mg/dL Calcium 8.6 (8.4-10.2) mg/dL Total Bilirubin 0.6 (0.2-1.3) mg/dL AST 33 (17-59) U/L ALT 30 (6-50) U/L Alkaline Phosphatase 86 (38-126) U/L Total Protein 6.5 (6.3-8.2) g/dL Albumin 3.6 (3.5-5.1) g/dL Urine Color Yellow (Yellow) Urine Appearance Clear (Clear) Urine pH 6.5 (5.0-9.0) Ur Specific [place] 1.023 (1.001-1.035) Urine Protein 1+ H (Negative) mg/dL Urine Glucose (UA) Negative (Negative) mg/dL Urine Ketones 2+ H (Negative) mg/dL Ur Blood (Man) Negative (Negative) Urine Nitrate Negative (Negative) Urine Bilirubin Negative (Negative) Urine Urobilinogen 1.0 (<2.0) mg/dL Add Ur Microanalysis Reviewed Leukocyte Esterase Rfl Negative (Negative) JAMES/UL Urine RBC 6-10 H (0-2) /hpf Urine WBC 0-5 (0-3) /hpf Ur Squamous Epith Cells None seen (Few) /hpf Urine Bacteria None seen /hpf Urine Casts 0-2 Urine Osmolality Pending U Random Total Protein 16 mg/dL Ur Random Sodium 103 meq/L Urine Creatinine 118.0 mg/dL Protein/Creat Ratio 2 0.14 (0-0.20) mg/mg 10/19/24 Range/Units 11:09 WBC (4.5-10.0) K/mm3 RBC (4.6-6.20) M/mm3 Hgb (14.0-18.0) g/dL Hct (42.0-52.0) % MCV (80-100) fl MCH (26-34) pg MCHC (32-36) g/dl RDW (11.5-14.5) % Plt Count (150-375) k/mm3 MPV (7.4-10.4) fl Immature Gran % (Auto) (0-0.5) % Neut % (Auto) (45.5-73.1) % Lymph % (Auto) (18.3-44.2) % [place] % (Auto) (2.6-8.5) % Eos % (Auto) (0-4.4) % Baso % (Auto) (0.2-1.2) % Lymph # (Auto) (0.9-3.2) K/mm3 [place] # (Auto) (0.1-0.6) K/mm3 Eos # (Auto) (0-0.3) K/mm3 Baso # (Auto) (0.0-0.1) K/mm3 Abs Immat Gran (auto) (0.00-0.031) K/mm3 Absolute Neuts (auto) (1.3-6.7) K/mm3 Absolute Nucleated RBC (0.0-0.012) K/mm3 Nucleated RBC % (0.0-0.2) % PT (11.1-14.7) Seconds INR APTT (22.3-36.8) Seconds Sodium 118 L* (137-145) mmol/L Potassium 4.3 (3.4-5.0) mmol/L Chloride 90 L (98-107) mmol/L Carbon Dioxide 25 (22-30) mmol/L Anion Gap 3 L (4-12) mmol/L BUN 10 (9-20) mg/dL Creatinine 0.64 L (0.7-1.3) mg/dL Estim Creat Clear Calc 89 ml/min Estimated GFR > 60 (59 - ) Glucose 134 H (65-110) mg/dL Calcium 8.0 L (8.4-10.2) mg/dL Total Bilirubin (0.2-1.3) mg/dL AST (17-59) U/L ALT (6-50) U/L Alkaline Phosphatase (38-126) U/L Total Protein (6.3-8.2) g/dL Albumin (3.5-5.1) g/dL Urine Color (Yellow) Urine Appearance (Clear) Urine pH (5.0-9.0) Ur Specific [place] (1.001-1.035) Urine Protein (Negative) mg/dL Urine Glucose (UA) (Negative) mg/dL Urine Ketones (Negative) mg/dL Ur Blood (Man) (Negative) Urine Nitrate (Negative) Urine Bilirubin (Negative) Urine Urobilinogen (<2.0) mg/dL Add Ur Microanalysis Leukocyte Esterase Rfl (Negative) JAMES/UL Urine RBC (0-2) /hpf Urine WBC (0-3) /hpf Ur Squamous Epith Cells (Few) /hpf Urine Bacteria /hpf Urine Casts Urine Osmolality U Random Total Protein mg/dL Ur Random Sodium meq/L Urine Creatinine mg/dL Protein/Creat Ratio 2 (0-0.20) mg/mg Imaging Data Radiologist's impression: Impressions Hand X-Ray 10/19/24 08:11 IMPRESSION: 1. 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 Knee X-Ray 10/19/24 08:14 IMPRESSION: 1. Moderate-sized right knee joint effusion with no acute osseous abnormality. Head CT 10/19/24 08:22 IMPRESSION: 1. Normal aging brain. No fracture or acute intracranial process. Venous Doppler Study 10/19/24 10:07 IMPRESSION: 1. No deep venous thrombosis in the right lower limb. Hand X-Ray 10/19/24 10:14 IMPRESSION: 1. 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 Discharge Plan Discharge Clinical Impression: Acute pain of right knee, Acute hyponatremia, Weakness Patient Disposition: Still a Patient Condition: Serious
--- NOTE | 2024-10-19 07:55 | PC.NURSE ---
Urinal at bedside - instructed on needing urine sample
[2024-10-19 08:00] LABS: Hematocrit 36.6 % (42.0-52.0); Hemoglobin 12.4 g/dL (14.0-18.0); Immature Granulocyte Percent A 0.8 % (0-0.5); Lymphocytes Absolute Auto 0.37 K/mm3 (0.9-3.2); Mean Corpuscular HGB Conc 33.9 g/dl (32-36); Mean Corpuscular Hemoglobin 32.2 pg (26-34); Mean Corpuscular Volume 95.1 fl (80-100); Nucleated Red Blood Cells Absolute Auto 0.000 K/mm3 (0.0-0.012); Nucleated Red Blood Cells Perc 0.0 % (0.0-0.2); Platelet Count Result 258 k/mm3 (150-375); Red Blood Count 3.85 M/mm3 (4.6-6.20); White Blood Count 14.2 K/mm3 (4.5-10.0)
[2024-10-19 08:14] LABS: INR 1.1; Prothrombin Time 14.5 Seconds (11.1-14.7)
[2024-10-19 08:15] LABS: Alanine Aminotransferase 30 U/L (6-50); Albumin Level 3.6 g/dL (3.5-5.1); Alkaline Phosphatase 86 U/L (38-126); Anion Gap 8 mmol/L (4-12); Aspartate Amino Transferase 33 U/L (17-59); Bilirubin,Total 0.6 mg/dL (0.2-1.3); Blood Urea Nitrogen 12 mg/dL (9-20); Calcium 8.6 mg/dL (8.4-10.2); Carbon Dioxide 20 mmol/L (22-30); Chloride 93 mmol/L (98-107); Estimated CRCL calculation 89 ml/min; Estimated Glomerular Filt Rate > 60; Glucose 154 mg/dL (65-110); Potassium 4.5 mmol/L (3.4-5.0); Sodium 121 mmol/L (137-145); Total Protein 6.5 g/dL (6.3-8.2)
[2024-10-19 08:15] LABS: Partial Thromboplastin Time 39.8 Seconds (22.3-36.8)
[2024-10-19] MEDS: SODIUM CHLORIDE 0.9% IV 1,000 ML 999 ML IV CONT (09:24)
[2024-10-19 10:31] LABS: Add Urine Microscopic? YES; Appearance Urine Clear (Clear); Glucose Urine UA Negative (Negative); Leukocyte Esterase Ur Negative LEU/UL (Negative); Nitrate Urine Negative (Negative); Specific Grav Ur 1.023 (1.001-1.035)
[2024-10-19 10:46] LABS: Need Manual Microscopic Reviewed; Non Pathogenic Casts 0-2
[2024-10-19 11:41] LABS: Anion Gap 3 mmol/L (4-12); Blood Urea Nitrogen 10 mg/dL (9-20); Calcium 8.0 mg/dL (8.4-10.2); Carbon Dioxide 25 mmol/L (22-30); Chloride 90 mmol/L (98-107); Estimated CRCL calculation 89 ml/min; Estimated Glomerular Filt Rate > 60; Glucose 134 mg/dL (65-110); Potassium 4.3 mmol/L (3.4-5.0); Sodium 118 mmol/L (137-145)
--- NOTE | 2024-10-19 13:00 | PM.IMHP ---
H&P: HPI History of Present Illness Date/Time: 10/19/24 13:00 Chief Complaint: Knee Pain, Abnormal Lab Narrative: 79 y/o M with PMH of rheumatoid arthritis, hypertension, hyperlipidemia and prediabetes presents here with right knee pain and abnormal lab work. The patient presents here from home for further evaluation of her in abnormal labs. He was initially seen last night for further evaluation of right knee pain. During this visit he reported that his right knee had given out and he was having difficulty bearing weight that had started the night prior. He was discharged with abx and steroids for his knee in the event the effusion was infectious with outpatient plan for an US of the lower extremity. The patient elected to go home prior to the BMP resulting. Sodium came back at 118 and patient was contacted to return to the ER. Patient's sodium was rechecked, 121. He was given IV fluids and repeat post fluids showed a sodium level of 118. He denies any previous history of hyponatremia. Patient denies any polydipsia, new prescriptions, confusion, headache, nausea, vomiting, or diarrhea. He denies any new peripheral edema, weight gain or shortness of breath? No previous history of/or current heavy alcohol use. Patient is on a daily diuretic - desmopressin 0.1 mg daily. Initial VS at presentation: 97.7? F, HR 84, R 16, 155/69, and 97% on RA. ED workup showed: WBC 14.2, hemoglobin 12.4, INR 1.1, sodium 118, creatinine 0.64 and GFR >60, glucose 134, UA showed 1+ protein/2+ ketones and 6-10 RBC. L Hand XR showed mild polyarticular osteoarthritis. Knee XR showed a moderate sized right knee joint effusion with no acute osseous abnormality. Head CT showed normal aging brain, no fracture or acute intracranial process. US of the RLE showed no DVT. R/L Hand XR showed polyarticular osteoarthritis, severe at the 1st interphalangeal joint, moderate the left 2nd and right 3rd metacarpophalangeal joints in mild diet many of the remaining joints at the bilateral hands and wrists. Review of Systems Review of Systems: All systems reviewed & are unremarkable except as noted in HPI and below [facility] Past Medical History Medical History Hyperlipidemia Essential (primary) hypertension Arthritis, rheumatoid Enlarged prostate Colon polyp Actinic keratoses Hearing loss Overweight (BMI 25.0-29.9) Prediabetes Vasomotor rhinitis Surgical History Surgical History History of left-sided carotid endarterectomy Family History Family History (Updated 10/19/24 @ 15:04 by Umm Evangelista RN) Father Family history of Alzheimer's disease Family history of arthritis Sibling Family history of malignant neoplasm of breast Mother Family history of malignant neoplasm of stomach Grandparent Diabetes mellitus Social History Social History Smoking status: Former smoker Alcohol intake: current Drinks per week: 2 Substance use: never Lack of Transportation: No Lack of Food: Never True Current Housing: Decline to Answer Concerned About Future Housing: Decline to Answer Difficulty Paying Gas/Electric Bills: Decline to Answer Difficulty Paying for Meds: Decline to Answer Currently Unemployed: Decline to Answer Education: Decline to Answer Difficulty w/ Childcare or Family Care: Decline to Answer Spiritual care concerns: No Meds Home Medications and Allergies Home Medications ?Medication ?Instructions ?Recorded ?Confirmed ?Type aspirin 325 mg tablet 325 mg PO DAILY 04/03/19 10/19/24 History cholecalciferol (vitamin D3) 125 5,000 unit PO DAILY 04/03/19 10/19/24 History mcg (5,000 unit) tablet (Vitamin D3) multivitamin 1 cap PO DAILY 04/03/19 10/19/24 History vit C 250 mg-vit E 90 mg-zinc 40 1 tablet PO BID 04/03/19 10/19/24 History mg-copper 1 [id number] capsule lidocaine HCl 2 % mucosal jelly 1 applic topical BID PRN pain #30 05/31/19 10/19/24 Rx mL bevacizumab 25 mg/mL intravenous intravitreal 01/06/20 10/14/24 History solution (Avastin) clobetasol 0.05 % scalp solution 1 applic topical DAILY #50 mL 09/23/20 10/19/24 Rx ipratropium bromide 21 mcg (0.03 2 spray intranasal .COMPLEX 05/25/22 10/19/24 History %) nasal spray mupirocin 2 % topical ointment 1 applic topical TID #22 grams 02/03/23 10/19/24 Rx fluticasone propionate 93 intranasal 05/31/23 10/14/24 History mcg/actuation breath activated aerosol (Xhance) leflunomide 20 mg tablet mg PO 05/31/23 10/14/24 History triamcinolone acetonide 0.1 % 1 applic topical BID PRN itching 01/30/24 10/19/24 Rx topical cream #453.6 grams pentoxifylline 400 mg 400 mg PO TID #270 tabs 02/14/24 10/19/24 Rx tablet,extended release rosuvastatin 40 mg tablet See Rx Instructions .Route 04/29/24 10/19/24 Rx .COMPLEX #90 tabs primidone 50 mg tablet See Rx Instructions .Route 06/24/24 10/19/24 Rx .COMPLEX #360 tabs fluoxetine 20 mg capsule (Prozac) 20 mg PO DAILY #90 caps 07/22/24 10/19/24 Rx cyclosporine 0.05 % eye drops drp EACH EYE 10/14/24 10/14/24 History (Restasis MultiDose) desmopressin 0.1 mg tablet mg PO 10/14/24 10/14/24 History Allergies Allergy/AdvReac Type Severity Reaction Status Date / Time bacitracin Allergy Unknown Unknown Verified 10/19/24 15:06 benzalkonium chloride Allergy Unknown Unknown Verified 10/19/24 15:06 chlorhexidine Allergy Unknown Unknown Verified 10/19/24 15:06 gramicidin D Allergy Unknown Unknown Verified 10/19/24 15:06 latex Allergy Unknown Skin Verified 10/19/24 15:06 Reaction polymyxin B Allergy Unknown Unknown Verified 10/19/24 15:06 BACITRACIN ZINC Allergy Unknown Unknown Uncoded 10/19/24 15:06 NEOMYCIN SULFATE Allergy Unknown Unknown Uncoded 10/19/24 15:06 POLYMYXIN B SULFATE Allergy Unknown Unknown Uncoded 10/19/24 15:06 Vital Signs Vital Signs - 24 hr 10/19/24 07:48 10/19/24 07:48 10/19/24 08:56 Temperature 97.7 F Pulse Rate 84 74 84 Respiratory Rate 16 21 H 18 Blood Pressure 155/69 H 155/69 H 141/66 H Pulse Oximetry 97 93 98 Oxygen Delivery Room Air 10/19/24 08:58 10/19/24 09:01 10/19/24 09:16 Temperature Pulse Rate 77 75 71 Respiratory Rate 20 20 17 Blood Pressure 141/66 H 140/64 138/78 Pulse Oximetry 96 96 100 Oxygen Delivery 10/19/24 09:31 10/19/24 10:00 Temperature Pulse Rate 80 70 Respiratory Rate 17 Blood Pressure 157/79 H Pulse Oximetry 100 Oxygen Delivery Exam Const: General: comfortable and no acute distress Other: , male, elderly, nontoxic appearance HENMT: Face/Nose/Sinus: Normal nares present Mouth: Yes moist mucous membranes Eyes: General: appearance normal, both eyes and all related structures Sclera: sclerae normal Pupils: Equal, round and reactive pupils present EOM: EOMs intact bilaterally Resp: Effort & Inspection: normal respiratory effort Auscultation: clear to auscultation bilaterally Cardio: Rate: regular rate Rhythm: regular rhythm Other: S1-S2 present without murmur, rub, ectopy GI: Other: Abdomen soft, nondistended, nontender. Normoactive bowel sounds in all quadrants. Skin: General skin exam: normal color and no rashes or lesions noted Wounds: no wounds Neuro: Speech: normal speech Motor exam (neuro): 5/5 motor strength present throughout Sensory Exam: normal sensation Other: A&O x4 Extrem: Other: Mild edema to right knee, primarily proximal to the patella. No overt tenderness with palpation. Knee immobilizer in place. Psych: Mental Status: mental status grossly normal Affect: normal affect Other: Good insight and judgment, pleasant H&P: Results Labs Labs: Short CBC 10/19/24 Range/Units 07:54 WBC 14.2 H (4.5-10.0) K/mm3 Hgb 12.4 L (14.0-18.0) g/dL Hct 36.6 L (42.0-52.0) % Plt Count 258 (150-375) k/mm3 BMP 10/19/24 10/19/24 07:54 11:09 Sodium 121 L 118 L* Potassium 4.5 4.3 Chloride 93 L 90 L Carbon Dioxide 20 L 25 BUN 12 10 Creatinine 0.64 L 0.64 L Glucose 154 H 134 H Calcium 8.6 8.0 L Liver Function 10/19/24 Range/Units 07:54 Total Bilirubin 0.6 (0.2-1.3) mg/dL AST 33 (17-59) U/L ALT 30 (6-50) U/L Alkaline Phosphatase 86 (38-126) U/L Albumin 3.6 (3.5-5.1) g/dL Urine 10/19/24 Range/Units 10:09 Urine Color Yellow (Yellow) Urine Appearance Clear (Clear) Urine pH 6.5 (5.0-9.0) Ur Specific [place] 1.023 (1.001-1.035) Urine Protein 1+ H (Negative) mg/dL Urine Glucose (UA) Negative (Negative) mg/dL Assessment and Plan Assessment and plan (1) Acute hyponatremia: Code(s): E87.1 - Hypo-osmolality and hyponatremia Status: Acute Assessment and Plan: - Na 118 upon initial eval, repeat/verification 121, repeat post-fluids 118 - check serum osmolality, urine osmolality, urine sodium, protein to creatinine ratio, urine creatinine - bmp Q3H - nephrology consulted - trend renal function - monitor neuro status - IV fluids: 1L bolus of NS -> NS at 100 mL/hr - regular diet (2) Acute pain of right knee: Code(s): M25.561 - Pain in right knee Status: Acute Assessment and Plan: - Knee XR: Moderate sized right knee effusion with no acute osseous abnormality - knee immobilizer placed in ED on 10/19 for comfort - PT/OT eval and treat (3) Essential (primary) hypertension: Code(s): I10 - Essential (primary) hypertension Status: Chronic Assessment and Plan: - chronic, currently 157/79 - continue home medications - monitor Plan Diet: Regular GI Prophylaxis: n/a DVT Prophylaxis: Lovenox SQ IV fluids: 1L bolus -> 100 mL/hour Lines/Tubes: Peripheral IV Code Status: Full code Quality VTE Prophylaxis VTE prophylaxis: pharmacologic ordered Hospitalist [facility] Advance Care Plan I have confirmed that the patient's Advanced Care Plan is present, code status is documented, or surrogate decision maker is listed in patient medical record.: Yes Medication Reconciliation I have utilized all available resources to obtain, update and review the patients current medications (includes all prescriptions, OTC, herbals, cannabis, and nutritional supplements).: Yes
[2024-10-19 13:51] LABS: Total Protein Urine Random 16 mg/dL; Ur Ttl Prot Creatinine Ratio 0.14 mg/mg (0-0.20)
--- NOTE | 2024-10-19 14:31 | ADMGEN ---
This patient, Abhijeet Pat, was admitted to 3 [facility] Room 313-01. Patient/family oriented to hospital policies and general routines including ID bracelet, bed and alarms, visiting hours, pain management, procedures, bathroom and other care routines, personal items, smoking policy, room service/diet, and visiting hours. Information on how to activate the Rapid Response Team has been discussed. Patient/Family are encouraged to report perceived risks to care and to ask questions if they do not understand what they are told or what they should do. received report from Shannan.
[2024-10-19] MEDS: HYDROcodone/acetaminophen (*CRX) 5-325 MG TABLET 1 TAB PO (15:20)
[2024-10-19] MEDS: SODIUM CHLORIDE 0.9% IV 1,000 ML 100 ML IV CONT (15:21)
[2024-10-19 15:39] LABS: Anion Gap 4 mmol/L (4-12); Blood Urea Nitrogen 9 mg/dL (9-20); Calcium 8.1 mg/dL (8.4-10.2); Carbon Dioxide 24 mmol/L (22-30); Chloride 93 mmol/L (98-107); Estimated CRCL calculation 97 ml/min; Estimated Glomerular Filt Rate > 60; Glucose 117 mg/dL (65-110); Potassium 4.3 mmol/L (3.4-5.0); Sodium 121 mmol/L (137-145)
--- NOTE | 2024-10-19 16:05 | P.CONNP_ITS ---
Assessment and Plan Assessment and plan (1) Hyponatremia: Code(s): E87.1 - Hypo-osmolality and hyponatremia Status: Acute Assessment and Plan: * last sodium in July 2024 was 134mmol/L * only prior labs before are from October 2022 -- sodium normal * sodium on admission noted to be 118mmol/L * etiology not clear... * possible medication related: * DDAVP -- started ~ 4 months ago by Urology for excessive nocturnal polyuria * prozac (SSRI) * leflunomide (although not common) * primidone * other possible contributing factors * history of smoking * COPD (?) * BPH * pain (right knee arthritis + effusion) * hold DDAVP/desmopressin * check CXR, TSH, cortisol, SPEP, UPEP, serum/urine osmolality * start fluid restriction * follow trend of repeat sodiums (2) Essential (primary) hypertension: Code(s): I10 - Essential (primary) hypertension Status: Chronic Assessment and Plan: * despite history, does not appear to be on any outpatient medications for this * follow trend of hemodynamics * start medications if needed I will continue to follow the patient with you while he remains hospitalized and make further recommendations as deemed necessary. Thank you for allowing me to participate in the care of this patient. L History of Present Illness Reason for Consult Consult date: 10/19/24 Reason for consult: hyponatremia Chief Complaint Chief complaint: Hyponatremia, Generalized weakness, Knee pain History of Present Illness Narrative: The patient is an 79-year-old male with a past medical history as outlined below who presented to [facility] Emergency Room for further evaluation of abnormal blood work. The patient was initially seen yesterday evening for further evaluation of right knee pain. During this ER visit he reported that his right knee had been given out and had significant difficulty bearing weight on it. Workup and evaluation at that time demonstrated x-rays that showed a significant right knee effusion with a suspected etiology being right knee degenerative joint disease. On the possibility of a possible infectious infusion, he was given antibiotics and steroids with the tentative plan for an outpatient ultrasound of his right knee for further evaluation. The patient was subsequently discharged from the ER prior to hit the results of his blood tests coming back. The results of his BMP demonstrated sodium of 118 millimoles per L which was a significant change in comparison to his baseline normal sodium level. Given this significant electrolyte abnormality, the patient was called and instructed to come back to the emergency room for a recheck and hence his repeat presentation to the emergency room. On his return to the ER this time, he remained hemodynamically stable and in no acute distress. Repeat testing demonstrated a white blood cell count of 14.2, hemoglobin 12.4, sodium of 121, creatinine 0.64, glucose 134, and a UA with 1+ protein, 2+ ketones and 6-10 red blood cells. As he gave a history of a few falls while at home, x-ray of his hand demonstrated mild polyarticular arthritis and a subsequent head CT showed normal aging brain with no fracture or acute intracranial process. An ultrasound of his right lower extremity showed no DVT. He was given IV fluids and a subsequent repeat chemistry panel showed a sodium level had actually had worsened to 118 millimoles per L. On further questioning, he gave no history of prior issues with hyponatremia, polydipsia, confusion, headache, nausea, vomiting, diarrhea, or any other subjective symptoms. Given this significant change in his sodium level in comparison to baseline, he was admitted to hospital for further evaluation and therapy. Since his admission, he has remained on IV fluids and his sodium level has not really significantly improved. In spite of this critical electrolyte abnormality, he otherwise appears to be asymptomatic. Renal consultation was requested due to his acute hyponatremia. Labs prior to this in July of 2024 showed a sodium 134 and prior to that, the most recent lab I have available to me is from October of 2022 where his sodium level was normal and all previous sodium levels prior that were within normal limits as well. As already mentioned, the patient gives no history with regard ever being told he had any issues or problems with hyponatremia. However, as already mentioned above, there is a significant gap in time (October 2022 - July of 2024) with the assumption that his sodium level was relatively normal within this period of time. Currently, at the time my evaluation, he appears to be in no acute distress. Review of Systems 2 Review of Systems: As per HPI. [facility] Past Medical History Medical History Hyperlipidemia Essential (primary) hypertension Arthritis, rheumatoid Enlarged prostate Colon polyp Actinic keratoses Hearing loss Overweight (BMI 25.0-29.9) Prediabetes Vasomotor rhinitis Surgical History Surgical History History of left-sided carotid endarterectomy Family History Family History (Updated 10/19/24 @ 15:04 by Umm Evangelista RN) Father Family history of Alzheimer's disease Family history of arthritis Sibling Family history of malignant neoplasm of breast Mother Family history of malignant neoplasm of stomach Grandparent Diabetes mellitus Social History Social History Smoking status: Former smoker Alcohol intake: current Drinks per week: 2 Substance use: never Lack of Transportation: No Lack of Food: Never True Current Housing: Decline to Answer Concerned About Future Housing: Decline to Answer Difficulty Paying Gas/Electric Bills: Decline to Answer Difficulty Paying for Meds: Decline to Answer Currently Unemployed: Decline to Answer Education: Decline to Answer Difficulty w/ Childcare or Family Care: Decline to Answer Spiritual care concerns: No Meds Home Medications and Allergies Home Medications ?Medication ?Instructions ?Recorded ?Confirmed ?Type aspirin 325 mg tablet 325 mg PO DAILY 04/03/19 10/19/24 History cholecalciferol (vitamin D3) 125 5,000 unit PO DAILY 04/03/19 10/19/24 History mcg (5,000 unit) tablet (Vitamin D3) multivitamin 1 cap PO DAILY 04/03/19 10/19/24 History vit C 250 mg-vit E 90 mg-zinc 40 1 tablet PO BID 04/03/19 10/19/24 History mg-copper 1 [id number] capsule lidocaine HCl 2 % mucosal jelly 1 applic topical BID PRN pain #30 05/31/19 10/19/24 Rx mL bevacizumab 25 mg/mL intravenous intravitreal 01/06/20 10/14/24 History solution (Avastin) clobetasol 0.05 % scalp solution 1 applic topical DAILY #50 mL 09/23/20 10/19/24 Rx ipratropium bromide 21 mcg (0.03 2 spray intranasal .COMPLEX 05/25/22 10/19/24 History %) nasal spray mupirocin 2 % topical ointment 1 applic topical TID #22 grams 02/03/23 10/19/24 Rx fluticasone propionate 93 intranasal 05/31/23 10/14/24 History mcg/actuation breath activated aerosol (Xhance) leflunomide 20 mg tablet mg PO 05/31/23 10/14/24 History triamcinolone acetonide 0.1 % 1 applic topical BID PRN itching 01/30/24 10/19/24 Rx topical cream #453.6 grams pentoxifylline 400 mg 400 mg PO TID #270 tabs 02/14/24 10/19/24 Rx tablet,extended release rosuvastatin 40 mg tablet See Rx Instructions .Route 04/29/24 10/19/24 Rx .COMPLEX #90 tabs primidone 50 mg tablet See Rx Instructions .Route 06/24/24 10/19/24 Rx .COMPLEX #360 tabs fluoxetine 20 mg capsule (Prozac) 20 mg PO DAILY #90 caps 07/22/24 10/19/24 Rx cyclosporine 0.05 % eye drops drp EACH EYE 10/14/24 10/14/24 History (Restasis MultiDose) desmopressin 0.1 mg tablet mg PO 10/14/24 10/14/24 History Allergies Allergy/AdvReac Type Severity Reaction Status Date / Time bacitracin Allergy Unknown Unknown Verified 10/19/24 15:06 benzalkonium chloride Allergy Unknown Unknown Verified 10/19/24 15:06 chlorhexidine Allergy Unknown Unknown Verified 10/19/24 15:06 gramicidin D Allergy Unknown Unknown Verified 10/19/24 15:06 latex Allergy Unknown Skin Verified 10/19/24 15:06 Reaction polymyxin B Allergy Unknown Unknown Verified 10/19/24 15:06 BACITRACIN ZINC Allergy Unknown Unknown Uncoded 10/19/24 15:06 NEOMYCIN SULFATE Allergy Unknown Unknown Uncoded 10/19/24 15:06 POLYMYXIN B SULFATE Allergy Unknown Unknown Uncoded 10/19/24 15:06 Vital Signs Vital Signs Temp Pulse Resp BP Pulse Ox O2 Del Method 10/19/24 14:20 Room Air 10/19/24 10:00 70 10/19/24 09:31 80 17 157/79 H 100 10/19/24 09:16 71 17 138/78 100 10/19/24 09:01 75 20 140/64 96 10/19/24 08:58 77 20 141/66 H 96 10/19/24 08:56 84 18 141/66 H 98 10/19/24 07:48 74 21 H 155/69 H 93 10/19/24 07:48 97.7 F 84 16 155/69 H 97 Room Air Exam 2 Narrative: GENERAL APPEARANCE: elderly but well developed well nourished male in no acute distress HEENT: normocephalic, atraumatic, normal conjunctiva and sclera, nares patient NECK: no lymphadenopathy, thyromegaly, or JVD MOUTH: normal lips, teeth, and gums CARDIOVASCULAR: RRR, normal S1 and S2, no rub RESPIRATORY: clear to auscultation ABDOMEN: soft, nontender, nondistended, positive bowel sounds present EXTREMITIES: no evidence of cyanosis, clubbing, or edema; right knee swelling NEUROLOGICAL: alert and oriented x 3; CN II - XII intact bilaterally; no focal deficits noted Results Lab Results 10/19/24 07:54 10/19/24 15:07 Lab results: Most recent lab results Calcium 8.1 mg/dL (8.4-10.2) L 10/19/24 15:07 Urine Creatinine 118.0 mg/dL 10/19/24 10:09
[2024-10-19] MEDS: OPTI-GEN TAB 1 TABLET PO (16:53)
[2024-10-19] MEDS: PRIMIDONE 50 MG TABLET PO ×2 (16:53→21:08)
[2024-10-19] MEDS: PENTOXIFYLLINE 400 MG TABCR PO (16:54)
[2024-10-19 20:03] LABS: Anion Gap 4 mmol/L (4-12); Blood Urea Nitrogen 9 mg/dL (9-20); Calcium 7.9 mg/dL (8.4-10.2); Carbon Dioxide 25 mmol/L (22-30); Chloride 91 mmol/L (98-107); Estimated CRCL calculation 88 ml/min; Estimated Glomerular Filt Rate > 60; Glucose 172 mg/dL (65-110); Potassium 3.7 mmol/L (3.4-5.0); Sodium 120 mmol/L (137-145)
[2024-10-20 00:13] LABS: Anion Gap 2 mmol/L (4-12); Blood Urea Nitrogen 9 mg/dL (9-20); Calcium 8.0 mg/dL (8.4-10.2); Carbon Dioxide 26 mmol/L (22-30); Chloride 93 mmol/L (98-107); Estimated CRCL calculation 90 ml/min; Estimated Glomerular Filt Rate > 60; Glucose 87 mg/dL (65-110); Potassium 4.3 mmol/L (3.4-5.0); Sodium 121 mmol/L (137-145)
[2024-10-20] MEDS: SODIUM CHLORIDE 1 GM TABLET PO (00:47)
[2024-10-20 01:21] LABS: Total Protein Urine Random 11 mg/dL; Ur Ttl Prot Creatinine Ratio 0.15 mg/mg (0-0.20)
[2024-10-20 05:52] VITALS: BP 141/85; PULSE 60; RESP 18; TEMP 36.3; O2SAT 95
[2024-10-20 05:57] LABS: Hematocrit 35.1 % (42.0-52.0); Hemoglobin 12.2 g/dL (14.0-18.0); Immature Granulocyte Percent A 0.8 % (0-0.5); Lymphocytes Absolute Auto 0.93 K/mm3 (0.9-3.2); Mean Corpuscular HGB Conc 34.8 g/dl (32-36); Mean Corpuscular Hemoglobin 33.2 pg (26-34); Mean Corpuscular Volume 95.4 fl (80-100); Nucleated Red Blood Cells Absolute Auto 0.000 K/mm3 (0.0-0.012); Nucleated Red Blood Cells Perc 0.0 % (0.0-0.2); Platelet Count Result 231 k/mm3 (150-375); Red Blood Count 3.68 M/mm3 (4.6-6.20); White Blood Count 8.3 K/mm3 (4.5-10.0)
[2024-10-20 06:20] LABS: Alanine Aminotransferase 25 U/L (6-50); Albumin Level 3.3 g/dL (3.5-5.1); Alkaline Phosphatase 68 U/L (38-126); Anion Gap 4 mmol/L (4-12); Aspartate Amino Transferase 32 U/L (17-59); Bilirubin,Total 0.4 mg/dL (0.2-1.3); Blood Urea Nitrogen 7 mg/dL (9-20); Calcium 8.6 mg/dL (8.4-10.2); Carbon Dioxide 27 mmol/L (22-30); Chloride 96 mmol/L (98-107); Estimated CRCL calculation 90 ml/min; Estimated Glomerular Filt Rate > 60; Glucose 93 mg/dL (65-110); Magnesium 2.0 mg/dL (1.6-2.3); Potassium 3.9 mmol/L (3.4-5.0); Sodium 127 mmol/L (137-145); Total Protein 6.4 g/dL (6.3-8.2)
[2024-10-20 06:56] LABS: Thyroid Stimulating Hormone Reflex 2.120 uIU/mL (0.465-4.68)
[2024-10-20] MEDS: PENTOXIFYLLINE 400 MG TABCR PO ×3 (08:21→17:07)
[2024-10-20] MEDS: CHOLECALCIFEROL (VITAMIN D3) 125 MCG (5,000 UNITS) TABLET PO (08:21)
[2024-10-20] MEDS: ASPIRIN 325 MG TABLET PO (08:21)
[2024-10-20] MEDS: PRIMIDONE 50 MG TABLET PO ×4 (08:22→20:40)
[2024-10-20] MEDS: OPTI-GEN TAB 1 TABLET PO ×2 (08:22→17:07)
[2024-10-20] MEDS: ROSUVASTATIN 20 MG TABLET 40 MG PO (08:22)
[2024-10-20] MEDS: MULTIVITAMINS THERAPEUTIC TAB (*BKC) 1 TABLET PO (08:22)
[2024-10-20] MEDS: ENOXAPARIN 40 MG/0.4 ML SYRINGE SUB-Q (08:22)
--- NOTE | 2024-10-20 10:08 | P.PNIM_ITS ---
Progress Note: A&P Assessment and Plan (1) Acute hyponatremia: Code(s): E87.1 - Hypo-osmolality and hyponatremia Status: Acute Assessment and Plan: - Na 118 upon initial eval, repeat/verification 121, repeat post-fluids 118 - check serum osmolality, urine osmolality, urine sodium, protein to creatinine ratio, urine creatinine - bmp Q3H - nephrology consulted - trend renal function - monitor neuro status - IV fluids: 1L bolus of NS -> NS at 100 mL/hr - regular diet (2) Acute pain of right knee: Code(s): M25.561 - Pain in right knee Status: Acute Assessment and Plan: - Knee XR: Moderate sized right knee effusion with no acute osseous abnormality -discontinue knee immobilizer which was placed in ED on 10/19 for comfort -consult orthopedic - PT/OT eval and treat after orthopedic evaluation (3) Essential (primary) hypertension: Code(s): I10 - Essential (primary) hypertension Status: Chronic Assessment and Plan: - chronic, currently 157/79 - continue home medications - monitor Plan Diet: Regular GI Prophylaxis: n/a DVT Prophylaxis: Lovenox SQ IV fluids: 1L bolus -> 100 mL/hour Lines/Tubes: Peripheral IV Code Status: Full code Subjective Date/time seen: 10/20/24 10:08 Interval history: Patient complains of right knee pain. Will consult Orthopedic. Sodium improving. Nephrology on board Review of Systems Review of Systems: All systems reviewed & are unremarkable except as noted in HPI and below Exam Const: General: comfortable and no acute distress Other: , male, elderly, nontoxic appearance HENMT: Face/Nose/Sinus: Normal nares present Mouth: Yes moist mucous me mbranes Eyes: General: appearance normal, both eyes and all related structures Sclera: sclerae normal Pupils: Equal, round and reactive pupils present EOM: EOMs intact bilaterally Resp: Effort & Inspection: normal respiratory effort Auscultation: clear to auscultation bilaterally Cardio: Rate: regular rate Rhythm: regular rhythm Other: S1-S2 present without murmur, rub, ectopy GI: Other: Abdomen soft, nondistended, nontender. Normoactive bowel sounds in all quadrants. Skin: General skin exam: normal color and no rashes or lesions noted Wounds: no wounds Neuro: Cranial nerves: Yes Equal, round and reactive pupils present Speech: normal speech Motor exam (neuro): 5/5 motor strength present throughout Sensory Exam: normal sensation Other: A&O x4 Extrem: Other: Mild edema to right knee, primarily proximal to the patella. No overt tenderness with palpation. Knee immobilizer in place. Psych: Mental Status: mental status grossly normal Affect: normal affect Other: Good insight and judgment, pleasant Objective Data Vital Signs Vital Signs: Vital Signs - 24 hr 10/19/24 14:20 10/19/24 16:26 10/19/24 20:30 Temperature 97.4 F L Pulse Rate 67 Respiratory Rate 18 Blood Pressure 181/69 H Pulse Oximetry 100 Oxygen Delivery Room Air Room Air 10/19/24 21:38 10/19/24 22:00 10/20/24 05:52 Temperature 97.6 F 97.6 F 97.4 F L Pulse Rate 65 65 60 Respiratory Rate 18 18 18 Blood Pressure 126/60 126/60 141/85 H Pulse Oximetry 96 96 95 Oxygen Delivery 10/20/24 08:00 Temperature Pulse Rate Respiratory Rate Blood Pressure Pulse Oximetry Oxygen Delivery Room Air Intake/Output Intake/Output: Intake & Output 10/17/24 10/18/24 10/19/24 10/20/24 23:59 23:59 23:59 23:59 Intake Total 1120 150 Output Total 100 1300 Balance 1020 -1150 Meds/Results Medications: Active Medications Generic Name Dose Route Start Last Admin Trade Name Freq PRN Reason Stop Dose Admin Acetaminophen 650 mg 10/19/24 13:21 Acetaminophen 325 Mg Tablet PO Q6H PRN Mild Pain (1-3) or Fever Hydrocodone Bitart/Acetaminophen 1 tab 10/19/24 13:21 10/19/24 15:20 Hydrocodone/Acetaminophen (*Crx) 5-325 Mg Tablet PO 1 tab Q6H PRN Administration Pain Rated 4-6 Aspirin 325 mg 10/20/24 09:00 10/20/24 08:21 Aspirin 325 Mg Tablet PO 325 mg DAILY TATI Administration Enoxaparin Sodium 40 mg 10/20/24 09:00 10/20/24 08:22 Enoxaparin 40 Mg/0.4 Ml Syringe SUB-Q 40 mg DAILY TATI Administration Fluoxetine HCl 20 mg 10/20/24 09:00 10/20/24 08:22 Fluoxetine Hcl 20 Mg Capsule PO 20 mg DAILY TATI Administration Lidocaine HCl 1 applic 10/19/24 13:20 Lidocaine 2% Jelly 5 Ml Tube TOPICAL BID PRN pain Multivitamins Therapeutic 1 tablet 10/20/24 09:00 10/20/24 08:22 Multivitamins Therapeutic Tab (*Bkc) PO 1 tablet DAILY TATI Administration Multivitamins/Minerals 1 tablet 10/19/24 17:00 10/20/24 08:22 Opti-Gen Tab PO 1 tablet BID TATI Administration Pentoxifylline 400 mg 10/19/24 17:00 10/20/24 08:21 Pentoxifylline 400 Mg Tabcr PO 400 mg TID TATI Administration Primidone 50 mg 10/19/24 17:00 10/20/24 08:22 Primidone 50 Mg Tablet PO 50 mg QID TATI Administration Rosuvastatin Calcium 40 mg 10/20/24 09:00 10/20/24 08:22 Rosuvastatin 20 Mg Tablet PO 40 mg DAILY TATI Administration Vitamin D 125 mcg 10/20/24 09:00 10/20/24 08:21 Cholecalciferol (Vitamin D3) 125 Mcg (5,000 Units) Tablet PO 125 mcg DAILY TATI Administration Radiology Results: ITS Impressions Knee X-Ray 10/19/24 08:14 IMPRESSION: 1. Moderate-sized right knee joint effusion with no acute osseous abnormality. Head CT 10/19/24 08:22 IMPRESSION: 1. Normal aging brain. No fracture or acute intracranial process. Venous Doppler Study 10/19/24 10:07 IMPRESSION: 1. No deep venous thrombosis in the right lower limb. Hand X-Ray 10/19/24 10:14 IMPRESSION: 1. 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 Chest X-Ray 10/19/24 19:56 IMPRESSION: No acute cardiopulmonary process. Labs Labs: Laboratory Results - last 24 hr 10/19/24 10/19/24 10/19/24 10:09 11:09 15:07 WBC RBC Hgb Hct MCV MCH MCHC RDW Plt Count MPV Immature Gran % (Auto) Neut % (Auto) Lymph % (Auto) Pierce % (Auto) Eos % (Auto) Baso % (Auto) Lymph # (Auto) Pierce # (Auto) Eos # (Auto) Baso # (Auto) Abs Immat Gran (auto) Absolute Neuts (auto) Absolute Nucleated RBC Nucleated RBC % Sodium 118 L* 121 L Potassium 4.3 4.3 Chloride 90 L 93 L Carbon Dioxide 25 24 Anion Gap 3 L 4 BUN 10 9 Creatinine 0.64 L 0.58 L Estim Creat Clear Calc 89 97 Estimated GFR > 60 > 60 Glucose 134 H 117 H Calcium 8.0 L 8.1 L Magnesium Total Bilirubin AST ALT Alkaline Phosphatase Total Protein Albumin TSH (Reflex) Random Cortisol Urine Color Yellow Urine Appearance Clear Urine pH 6.5 Ur Specific [place] 1.023 Urine Protein 1+ H Urine Glucose (UA) Negative Urine Ketones 2+ H Ur Blood (Man) Negative Urine Nitrate Negative Urine Bilirubin Negative Urine Urobilinogen 1.0 Add Ur Microanalysis Reviewed Leukocyte Esterase Rfl Negative Urine RBC 6-10 H Urine WBC 0-5 Ur Squamous Epith Cells None seen Urine Bacteria None seen Urine Casts 0-2 Ur Random Creatinine U Random Total Protein 16 Ur Random Sodium 103 Urine Creatinine 118.0 Protein/Creatinin Ratio Protein/Creat Ratio 2 0.14 Urine Albumin U Xytls-8-Ebxgizzd U Tktbj-0-Ketlbirz U Beta Globulin U Gamma Globulin U Abnormal Prot Band 1 U Abnormal Prot Band 2 U Abnormal Prot Band 3 Urine PEP Interpret Ov[place]/Lambda Ratio Free [place]vett Light Chains Free Lambda Light Chain 10/19/24 10/19/24 10/19/24 19:40 21:25 21:25 WBC RBC Hgb Hct MCV MCH MCHC RDW Plt Count MPV Immature Gran % (Auto) Neut % (Auto) Lymph % (Auto) Pierce % (Auto) Eos % (Auto) Baso % (Auto) Lymph # (Auto) Pierce # (Auto) Eos # (Auto) Baso # (Auto) Abs Immat Gran (auto) Absolute Neuts (auto) Absolute Nucleated RBC Nucleated RBC % Sodium 120 L Potassium 3.7 Chloride 91 L Carbon Dioxide 25 Anion Gap 4 BUN 9 Creatinine 0.65 L Estim Creat Clear Calc 88 Estimated GFR > 60 Glucose 172 H Calcium 7.9 L Magnesium Total Bilirubin AST ALT Alkaline Phosphatase Total Protein Albumin TSH (Reflex) Random Cortisol Urine Color Urine Appearance Urine pH Ur Specific [place] Urine Protein Urine Glucose (UA) Urine Ketones Ur Blood (Man) Urine Nitrate Urine Bilirubin Urine Urobilinogen Add Ur Microanalysis Leukocyte Esterase Rfl Urine RBC Urine WBC Ur Squamous Epith Cells Urine Bacteria Urine Casts Ur Random Creatinine Cancelled U Random Total Protein 11 Cancelled Ur Random Sodium Urine Creatinine 74.0 Protein/Creatinin Ratio Cancelled Protein/Creat Ratio 2 0.15 Urine Albumin Cancelled U Satnd-3-Gwypgkjz Cancelled U Thzwt-4-Qyxlqrhj Cancelled U Beta Globulin Cancelled U Gamma Globulin Cancelled U Abnormal Prot Band 1 Cancelled U Abnormal Prot Band 2 Cancelled U Abnormal Prot Band 3 Cancelled Urine PEP Interpret Cancelled Ov[place]/Lambda Ratio Free [place] Light Chains Free Lambda Light Chain 10/19/24 10/20/24 23:53 05:29 WBC 8.3 RBC 3.68 L Hgb 12.2 L Hct 35.1 L MCV 95.4 MCH 33.2 MCHC 34.8 RDW 14.9 H Plt Count 231 MPV 10.0 Immature Gran % (Auto) 0.8 H Neut % (Auto) 73.8 H Lymph % (Auto) 11.2 L Pierce % (Auto) 12.7 H Eos % (Auto) 1.3 Baso % (Auto) 0.2 Lymph # (Auto) 0.93 Pierce # (Auto) 1.1 H Eos # (Auto) 0.1 Baso # (Auto) 0.0 Abs Immat Gran (auto) 0.07 H Absolute Neuts (auto) 6.1 Absolute Nucleated RBC 0.000 Nucleated RBC % 0.0 Sodium 121 L 127 L Potassium 4.3 3.9 Chloride 93 L 96 L Carbon Dioxide 26 27 Anion Gap 2 L 4 BUN 9 7 L Creatinine 0.63 L 0.63 L Estim Creat Clear Calc 90 90 Estimated GFR > 60 > 60 Glucose 87 93 Calcium 8.0 L 8.6 Magnesium 2.0 Total Bilirubin 0.4 AST 32 ALT 25 Alkaline Phosphatase 68 Total Protein 6.4 Albumin 3.3 L TSH (Reflex) 2.120 Random Cortisol 9.19 Urine Color Urine Appearance Urine pH Ur Specific [place] Urine Protein Urine Glucose (UA) Urine Ketones Ur Blood (Man) Urine Nitrate Urine Bilirubin Urine Urobilinogen Add Ur Microanalysis Leukocyte Esterase Rfl Urine RBC Urine WBC Ur Squamous Epith Cells Urine Bacteria Urine Casts Ur Random Creatinine U Random Total Protein Ur Random Sodium Urine Creatinine Protein/Creatinin Ratio Protein/Creat Ratio 2 Urine Albumin U Qcpvt-6-Eozqqole U Pazix-5-Iihjtghl U Beta Globulin U Gamma Globulin U Abnormal Prot Band 1 U Abnormal Prot Band 2 U Abnormal Prot Band 3 Urine PEP Interpret [place]/Lambda Ratio Cancelled Free [place] Light Chains Cancelled Free Lambda Light Chain Cancelled Quality VTE Prophylaxis VTE prophylaxis: pharmacologic ordered Hospitalist MIPS Advance Care Plan I have confirmed that the patient's Advanced Care Plan is present, code status is documented, or surrogate decision maker is listed in patient medical record.: Yes Medication Reconciliation I have utilized all available resources to obtain, update and review the patients current medications (includes all prescriptions, OTC, herbals, cannabis, and nutritional supplements).: Yes
[2024-10-20 11:15] LABS: Sodium 128 mmol/L (137-145)
--- NOTE | 2024-10-20 11:25 | PCOTNOTE ---
Attempted OT evaluation; per MD he will order ortho consult due to knee pain. Hold therapy evaluations until after ortho consult is completed. Will continue to follow.
--- NOTE | 2024-10-20 11:45 | P.PNNP_ITS ---
Progress Note: A&P Assessment and Plan (1) Hyponatremia: Code(s): E87.1 - Hypo-osmolality and hyponatremia Status: Acute Assessment and Plan: * last sodium in July 2024 was 134mmol/L * only prior labs before are from October 2022 -- sodium normal * sodium on admission noted to be 118mmol/L * etiology not clear... * possible medication related: * DDAVP/desmopressin -- started ~ 4 months ago by Urology for excessive nocturnal polyuria * prozac (SSRI) * leflunomide (although not common) * primidone * other possible contributing factors * history of smoking * COPD (?) * BPH * pain (right knee arthritis + effusion) * holding DDAVP/desmopressin * evaluaton to date noted: * CXR negative * head CT negative * urine electrolytes prerenal * TSH okay * cortisol on the low side - consider checking stimulation test * SPEP/UPEP pending * due to concerns of overcorrection - D5W IVFs and will recheck sodium * follow trend of repeat sodiums (2) Essential (primary) hypertension: Code(s): I10 - Essential (primary) hypertension Status: Chronic Assessment and Plan: * despite history, does not appear to be on any outpatient medications for this * follow trend of hemodynamics * start medications if needed Will continue to follow. L Subjective Date/time seen: 10/20/24 11:45 Interval history: Follow-up for presumed acute hyponatremia. Sodium level has improved but a bit too rapid/fast [~ 10mmol/L in 24 hours (118 --> 128] so getting D5W IVFs to slow down rate of correction; he otherwise appears in no distress; no issues/events overnight or earlier this morning. Exam 2 Narrative: General: elderly but WD/WN male in NAD Heart: normal S1 and S2; no rub Lungs: clear to auscultation Abdomen: soft, nontender, nondistended, positive bowel sounds Extremities: no cyanosis or clubbing; no edema; slightly swollen right knee Skin: warm and dry Objective Data Vital Signs Vital Signs: Vital Signs Temp Pulse Resp BP Pulse Ox O2 Del Method 10/20/24 08:00 Room Air 10/20/24 05:52 97.4 F L 60 18 141/85 H 95 10/19/24 22:00 97.6 F 65 18 126/60 96 10/19/24 21:38 97.6 F 65 18 126/60 96 10/19/24 20:30 Room Air 10/19/24 16:26 97.4 F L 67 18 181/69 H 100 10/19/24 14:20 Room Air Intake/Output Intake/Output: Intake & Output 10/17/24 10/18/24 10/19/24 10/20/24 23:59 23:59 23:59 23:59 Intake Total 1120 150 Output Total 100 1800 Balance 1020 -1650 Meds/Results Medications: Active Medications Generic Name Dose Route Start Last Admin Trade Name Freq PRN Reason Stop Dose Admin Acetaminophen 650 mg 10/19/24 13:21 Acetaminophen 325 Mg Tablet PO Q6H PRN Mild Pain (1-3) or Fever Hydrocodone Bitart/Acetaminophen 1 tab 10/19/24 13:21 10/19/24 15:20 Hydrocodone/Acetaminophen (*Crx) 5-325 Mg Tablet PO 1 tab Q6H PRN Administration Pain Rated 4-6 Aspirin 325 mg 10/20/24 09:00 10/20/24 08:21 Aspirin 325 Mg Tablet PO 325 mg DAILY TATI Administration Enoxaparin Sodium 40 mg 10/20/24 09:00 10/20/24 08:22 Enoxaparin 40 Mg/0.4 Ml Syringe SUB-Q 40 mg DAILY TATI Administration Fluoxetine HCl 20 mg 10/20/24 09:00 10/20/24 08:22 Fluoxetine Hcl 20 Mg Capsule PO 20 mg DAILY TATI Administration Dextrose 400 mls @ 200 mls/hr 10/20/24 11:18 Dextrose 5% In Water IV CONT 10/20/24 13:17 .Q2H ONE Lidocaine HCl 1 applic 10/19/24 13:20 Lidocaine 2% Jelly 5 Ml Tube TOPICAL BID PRN pain Multivitamins Therapeutic 1 tablet 10/20/24 09:00 10/20/24 08:22 Multivitamins Therapeutic Tab (*Bkc) PO 1 tablet DAILY TATI Administration Multivitamins/Minerals 1 tablet 10/19/24 17:00 10/20/24 08:22 Opti-Gen Tab PO 1 tablet BID TATI Administration Pentoxifylline 400 mg 10/19/24 17:00 10/20/24 08:21 Pentoxifylline 400 Mg Tabcr PO 400 mg TID TATI Administration Primidone 50 mg 10/19/24 17:00 10/20/24 08:22 Primidone 50 Mg Tablet PO 50 mg QID TATI Administration Rosuvastatin Calcium 40 mg 10/20/24 09:00 10/20/24 08:22 Rosuvastatin 20 Mg Tablet PO 40 mg DAILY TATI Administration Vitamin D 125 mcg 10/20/24 09:00 10/20/24 08:21 Cholecalciferol (Vitamin D3) 125 Mcg (5,000 Units) Tablet PO 125 mcg DAILY TATI Administration Radiology Results: ITS Impressions Knee X-Ray 10/19/24 08:14 IMPRESSION: 1. Moderate-sized right knee joint effusion with no acute osseous abnormality. Head CT 10/19/24 08:22 IMPRESSION: 1. Normal aging brain. No fracture or acute intracranial process. Venous Doppler Study 10/19/24 10:07 IMPRESSION: 1. No deep venous thrombosis in the right lower limb. Hand X-Ray 10/19/24 10:14 IMPRESSION: 1. 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 Chest X-Ray 10/19/24 19:56 IMPRESSION: No acute cardiopulmonary process. Labs Labs: Laboratory Tests 10/20/24 05:29 10/20/24 10:51 10/19/24 10/19/24 10/19/24 10/19/24 10/20/24 11:09 15:07 19:40 23:53 05:29 Sodium 118 L 121 L 120 L 121 L 127 L Potassium 3.9 Chloride 96 L Carbon Dioxide 27 BUN 7 L Creatinine 0.63 L Estimated GFR > 60 Glucose 93 Calcium 8.6 Magnesium 2.0 Total Bilirubin 0.4 AST 32 ALT 25 Alkaline Phosphatase 68 Total Protein 6.4 Albumin 3.3 L TSH (Reflex) 2.120 Random Cortisol 9.19
[2024-10-20] MEDS: DEXTROSE 5% IN WATER 400 ML 200 ML IV CONT (12:22)
--- NOTE | 2024-10-20 13:22 | PCPTNOTE ---
Attempted PT evaluation; per MD he will order ortho consult due to knee pain. Hold therapy evaluations until after ortho consult is completed. Will continue to follow.
[2024-10-20 14:00] VITALS: BP 138/67; PULSE 66; RESP 20; TEMP 36.4; O2SAT 97
[2024-10-20 16:11] LABS: Sodium 128 mmol/L (137-145)
[2024-10-20] MEDS: DEXTROSE 5% IN WATER 500 ML 250 ML IV CONT (17:07)
[2024-10-20 20:01] VITALS: BP 149/74; PULSE 84; RESP 18; TEMP 36.7; O2SAT 95
[2024-10-21 05:08] VITALS: BP 173/96; PULSE 65; RESP 16; TEMP 36.3; O2SAT 93
[2024-10-21 06:18] LABS: Hematocrit 37.9 % (42.0-52.0); Hemoglobin 12.5 g/dL (14.0-18.0); Immature Granulocyte Percent A 1.2 % (0-0.5); Lymphocytes Absolute Auto 0.81 K/mm3 (0.9-3.2); Mean Corpuscular HGB Conc 33.0 g/dl (32-36); Mean Corpuscular Hemoglobin 32.2 pg (26-34); Mean Corpuscular Volume 97.7 fl (80-100); Nucleated Red Blood Cells Absolute Auto 0.000 K/mm3 (0.0-0.012); Nucleated Red Blood Cells Perc 0.0 % (0.0-0.2); Platelet Count Result 245 k/mm3 (150-375); Red Blood Count 3.88 M/mm3 (4.6-6.20); White Blood Count 8.4 K/mm3 (4.5-10.0)
[2024-10-21 06:43] LABS: Albumin Level 3.4 g/dL (3.5-5.1); Anion Gap 3 mmol/L (4-12); Blood Urea Nitrogen 6 mg/dL (9-20); Calcium 8.8 mg/dL (8.4-10.2); Carbon Dioxide 29 mmol/L (22-30); Chloride 99 mmol/L (98-107); Estimated CRCL calculation 80 ml/min; Estimated Glomerular Filt Rate > 60; Glucose 93 mg/dL (65-110); Potassium 4.1 mmol/L (3.4-5.0); Sodium 131 mmol/L (137-145)
--- NOTE | 2024-10-21 07:59 | PC.NURSE ---
LVM for Dr. Soares with Sodium resulted this AM. Okay to leave VM per [employer] instructions. Will await call back for any new orders as needed.
[2024-10-21 08:00] VITALS: O2SAT 93
--- NOTE | 2024-10-21 08:01 | PC.NURSE ---
[facility] stop Physician Communication Order for notification of Sodium levels at this time. Order stopped per request.
--- NOTE | 2024-10-21 08:47 | PM.IMPN ---
Progress Note: A&P Assessment and Plan (1) Acute hyponatremia: Code(s): E87.1 - Hypo-osmolality and hyponatremia Status: Acute Assessment and Plan: - Na 118 upon initial eval, repeat/verification 121, repeat post-fluids 118 -10/21/2024: Sodium 131 -currently on D5W due to rapid correction of sodium - check serum osmolality, urine osmolality, urine sodium, protein to creatinine ratio, urine creatinine - bmp Q3H - nephrology consulted - trend renal function - monitor neuro status - IV fluids: 1L bolus of NS -> NS at 100 mL/hr - regular diet (2) Acute pain of right knee: Code(s): M25.561 - Pain in right knee Status: Acute Assessment and Plan: - Knee XR: Moderate sized right knee effusion with no acute osseous abnormality -continue knee immobilizer which was placed in ED on 10/19 for comfort -consult orthopedic - PT/OT eval and treat after orthopedic evaluation (3) Essential (primary) hypertension: Code(s): I10 - Essential (primary) hypertension Status: Chronic Assessment and Plan: - chronic, currently 157/79 - continue home medications - monitor Plan Diet: Regular GI Prophylaxis: n/a DVT Prophylaxis: Lovenox SQ IV fluids: 1L bolus -> 100 mL/hour Lines/Tubes: Peripheral IV Code Status: Full code Subjective Date/time seen: 10/21/24 08:47 Interval history: Pending orthopedic opinion on her right knee pain. Patient reports knee immobilizer is helping with his right knee pain. Sodium back to baseline Review of Systems Review of Systems: All systems reviewed & are unremarkable except as noted in HPI and below Exam Const: General: comfortable and no acute distress Other: , male, elderly, nontoxic appearance HENMT: Face/Nose/Sinus: Normal nares present Mouth: Yes moist mucous membranes Eyes: General: appearance normal, both eyes and all related structures Sclera: sclerae normal Pupils: Equal, round and reactive pupils present EOM: EOMs intact bilaterally Resp: Effort & Inspection: normal respiratory effort Auscultation: clear to auscultation bilaterally Cardio: Rate: regular rate Rhythm: regular rhythm Other: S1-S2 present without murmur, rub, ectopy GI: Other: Abdomen soft, nondistended, nontender. Normoactive bowel sounds in all quadrants. Skin: General skin exam: normal color and no rashes or lesions noted Wounds: no wounds Neuro: Cranial nerves: Yes Equal, round and reactive pupils present Speech: normal speech Motor exam (neuro): 5/5 motor strength present throughout Sensory Exam: normal sensation Other: A&O x4 Extrem: Other: Mild edema to right knee, primarily proximal to the patella. No overt tenderness with palpation. Knee immobilizer in place. Psych: Mental Status: mental status grossly normal Affect: normal affect Other: Good insight and judgment, pleasant Objective Data Vital Signs Vital Signs: Vital Signs - 24 hr 10/20/24 14:00 10/20/24 20:00 10/20/24 20:01 Temperature 97.6 F 98.0 F Pulse Rate 66 84 Respiratory Rate 20 18 Blood Pressure 138/67 149/74 H Pulse Oximetry 97 95 Oxygen Delivery Room Air 10/21/24 05:08 Temperature 97.4 F L Pulse Rate 65 Respiratory Rate 16 Blood Pressure 173/96 H Pulse Oximetry 93 Oxygen Delivery Intake/Output Intake/Output: Intake & Output 10/18/24 10/19/24 10/20/24 10/21/24 23:59 23:59 23:59 23:59 Intake Total 1120 1010 550 Output Total 100 3750 543 Balance 1020 -2740 7 Meds/Results Medications: Active Medications Generic Name Dose Route Start Last Admin Trade Name Freq PRN Reason Stop Dose Admin Acetaminophen 650 mg 10/19/24 13:21 Acetaminophen 325 Mg Tablet PO Q6H PRN Mild Pain (1-3) or Fever Hydrocodone Bitart/Acetaminophen 1 tab 10/19/24 13:21 10/19/24 15:20 Hydrocodone/Acetaminophen (*Crx) 5-325 Mg Tablet PO 1 tab Q6H PRN Administration Pain Rated 4-6 Aspirin 325 mg 10/20/24 09:00 10/20/24 08:21 Aspirin 325 Mg Tablet PO 325 mg DAILY TATI Administration Enoxaparin Sodium 40 mg 10/20/24 09:00 10/20/24 08:22 Enoxaparin 40 Mg/0.4 Ml Syringe SUB-Q 40 mg DAILY TATI Administration Fluoxetine HCl 20 mg 10/20/24 09:00 10/20/24 08:22 Fluoxetine Hcl 20 Mg Capsule PO 20 mg DAILY TATI Administration Lidocaine HCl 1 applic 10/19/24 13:20 Lidocaine 2% Jelly 5 Ml Tube TOPICAL BID PRN pain Multivitamins Therapeutic 1 tablet 10/20/24 09:00 10/20/24 08:22 Multivitamins Therapeutic Tab (*Bkc) PO 1 tablet DAILY TATI Administration Multivitamins/Minerals 1 tablet 10/19/24 17:00 10/20/24 17:07 Opti-Gen Tab PO 1 tablet BID TATI Administration Pentoxifylline 400 mg 10/19/24 17:00 10/20/24 17:07 Pentoxifylline 400 Mg Tabcr PO 400 mg TID TATI Administration Primidone 50 mg 10/19/24 17:00 10/20/24 20:40 Primidone 50 Mg Tablet PO 50 mg QID TATI Administration Rosuvastatin Calcium 40 mg 10/20/24 09:00 10/20/24 08:22 Rosuvastatin 20 Mg Tablet PO 40 mg DAILY TATI Administration Vitamin D 125 mcg 10/20/24 09:00 10/20/24 08:21 Cholecalciferol (Vitamin D3) 125 Mcg (5,000 Units) Tablet PO 125 mcg DAILY TATI Administration Radiology Results: ITS Impressions Knee X-Ray 10/19/24 08:14 IMPRESSION: 1. Moderate-sized right knee joint effusion with no acute osseous abnormality. Head CT 10/19/24 08:22 IMPRESSION: 1. Normal aging brain. No fracture or acute intracranial process. Venous Doppler Study 10/19/24 10:07 IMPRESSION: 1. No deep venous thrombosis in the right lower limb. Hand X-Ray 10/19/24 10:14 IMPRESSION: 1. 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 Chest X-Ray 10/19/24 19:56 IMPRESSION: No acute cardiopulmonary process. Labs Labs: Laboratory Results - last 24 hr 10/20/24 10/20/24 10/21/24 10:51 15:50 05:44 WBC 8.4 RBC 3.88 L Hgb 12.5 L Hct 37.9 L MCV 97.7 MCH 32.2 MCHC 33.0 RDW 15.6 H Plt Count 245 MPV 9.7 Immature Gran % (Auto) 1.2 H Neut % (Auto) 75.2 H Lymph % (Auto) 9.6 L [place] % (Auto) 11.7 H Eos % (Auto) 1.8 Baso % (Auto) 0.5 Lymph # (Auto) 0.81 L [place] # (Auto) 1.0 H Eos # (Auto) 0.2 Baso # (Auto) 0.0 Abs Immat Gran (auto) 0.10 H Absolute Neuts (auto) 6.4 Absolute Nucleated RBC 0.000 Nucleated RBC % 0.0 Sodium 128 L 128 L 131 L Potassium 4.1 Chloride 99 Carbon Dioxide 29 Anion Gap 3 L BUN 6 L Creatinine 0.72 Estim Creat Clear Calc 80 Estimated GFR > 60 Glucose 93 Calcium 8.8 Phosphorus 3.3 Albumin 3.4 L Quality VTE Prophylaxis VTE prophylaxis: pharmacologic ordered Hospitalist [facility] Advance Care Plan I have confirmed that the patient's Advanced Care Plan is present, code status is documented, or surrogate decision maker is listed in patient medical record.: Yes Medication Reconciliation I have utilized all available resources to obtain, update and review the patients current medications (includes all prescriptions, OTC, herbals, cannabis, and nutritional supplements).: Yes
[2024-10-21] MEDS: OPTI-GEN TAB 1 TABLET PO ×2 (09:45→17:32)
[2024-10-21] MEDS: ROSUVASTATIN 20 MG TABLET 40 MG PO (09:45)
[2024-10-21] MEDS: ENOXAPARIN 40 MG/0.4 ML SYRINGE SUB-Q (09:45)
[2024-10-21] MEDS: ASPIRIN 325 MG TABLET PO (09:45)
[2024-10-21] MEDS: CHOLECALCIFEROL (VITAMIN D3) 125 MCG (5,000 UNITS) TABLET PO (09:46)
[2024-10-21] MEDS: PENTOXIFYLLINE 400 MG TABCR PO ×3 (09:46→17:32)
[2024-10-21] MEDS: MULTIVITAMINS THERAPEUTIC TAB (*BKC) 1 TABLET PO (09:46)
[2024-10-21] MEDS: PRIMIDONE 50 MG TABLET PO ×4 (09:46→20:24)
--- NOTE | 2024-10-21 10:35 | P.PNNP_ITS ---
Progress Note: A&P Assessment and Plan (1) Hyponatremia: Code(s): E87.1 - Hypo-osmolality and hyponatremia Status: Acute Assessment and Plan: * ongoing improvement noted * last sodium in July 2024 was 134mmol/L * only prior labs before are from October 2022 -- sodium normal * sodium on admission noted to be 118mmol/L * etiology not clear... * possible medication related: * DDAVP/desmopressin -- started ~ 4 months ago by Urology for excessive nocturnal polyuria * prozac (SSRI) * leflunomide (although not common) * primidone * other possible contributing factors * history of smoking * COPD (?) * BPH * pain (right knee arthritis + effusion) * holding DDAVP/desmopressin * evaluation to date noted: * CXR negative * head CT negative * urine electrolytes prerenal * TSH okay * cortisol on the low side - consider checking stimulation test * SPEP/UPEP pending * follow trend of repeat sodiums (2) Essential (primary) hypertension: Code(s): I10 - Essential (primary) hypertension Status: Chronic Assessment and Plan: * despite history, does not appear to be on any outpatient medications for this * follow trend of hemodynamics * start medications if needed Not opposed to discharge from renal perspective if otherwise medically stable. Will continue to follow. L Subjective Date/time seen: 10/21/24 10:35 Interval history: Follow-up for acute hyponatremia. Sodium level continues to improve with current therapy/interventions; no apparent distress other than fluctuating pain in his right knee; no other issues/events overnight or earlier this morning. Exam 2 Narrative: General: elderly but WD/WN male in NAD Heart: normal S1 and S2; no rub Lungs: clear to auscultation Abdomen: soft, nontender, nondistended, positive bowel sounds Extremities: no cyanosis or clubbing; no edema; slightly swollen right knee Skin: warm and intact Objective Data Vital Signs Vital Signs: Vital Signs Temp Pulse Resp BP Pulse Ox O2 Del Method 10/21/24 05:08 97.4 F L 65 16 173/96 H 93 10/20/24 20:01 98.0 F 84 18 149/74 H 95 10/20/24 20:00 Room Air 10/20/24 14:00 97.6 F 66 20 138/67 97 Intake/Output Intake/Output: Intake & Output 10/18/24 10/19/24 10/20/24 10/21/24 23:59 23:59 23:59 23:59 Intake Total 1120 1010 730 Output Total 100 3750 543 Balance 1020 -7390 187 Meds/Results Medications: Active Medications Generic Name Dose Route Start Last Admin Trade Name Freq PRN Reason Stop Dose Admin Acetaminophen 650 mg 10/19/24 13:21 Acetaminophen 325 Mg Tablet PO Q6H PRN Mild Pain (1-3) or Fever Hydrocodone Bitart/Acetaminophen 1 tab 10/19/24 13:21 10/19/24 15:20 Hydrocodone/Acetaminophen (*Crx) 5-325 Mg Tablet PO 1 tab Q6H PRN Administration Pain Rated 4-6 Aspirin 325 mg 10/20/24 09:00 10/21/24 09:45 Aspirin 325 Mg Tablet PO 325 mg DAILY TATI Administration Enoxaparin Sodium 40 mg 10/20/24 09:00 10/21/24 09:45 Enoxaparin 40 Mg/0.4 Ml Syringe SUB-Q 40 mg DAILY TATI Administration Fluoxetine HCl 20 mg 10/20/24 09:00 10/21/24 09:45 Fluoxetine Hcl 20 Mg Capsule PO 20 mg DAILY TATI Administration Lidocaine HCl 1 applic 10/19/24 13:20 Lidocaine 2% Jelly 5 Ml Tube TOPICAL BID PRN pain Multivitamins Therapeutic 1 tablet 10/20/24 09:00 10/21/24 09:46 Multivitamins Therapeutic Tab (*Bkc) PO 1 tablet DAILY TATI Administration Multivitamins/Minerals 1 tablet 10/19/24 17:00 10/21/24 09:45 Opti-Gen Tab PO 1 tablet BID TATI Administration Pentoxifylline 400 mg 10/19/24 17:00 10/21/24 12:29 Pentoxifylline 400 Mg Tabcr PO 400 mg TID TATI Administration Primidone 50 mg 10/19/24 17:00 10/21/24 12:29 Primidone 50 Mg Tablet PO 50 mg QID TATI Administration Rosuvastatin Calcium 40 mg 10/20/24 09:00 10/21/24 09:45 Rosuvastatin 20 Mg Tablet PO 40 mg DAILY TATI Administration Vitamin D 125 mcg 10/20/24 09:00 10/21/24 09:46 Cholecalciferol (Vitamin D3) 125 Mcg (5,000 Units) Tablet PO 125 mcg DAILY TATI Administration Radiology Results: ITS Impressions Knee X-Ray 10/19/24 08:14 IMPRESSION: 1. Moderate-sized right knee joint effusion with no acute osseous abnormality. Head CT 10/19/24 08:22 IMPRESSION: 1. Normal aging brain. No fracture or acute intracranial process. Venous Doppler Study 10/19/24 10:07 IMPRESSION: 1. No deep venous thrombosis in the right lower limb. Hand X-Ray 10/19/24 10:14 IMPRESSION: 1. 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 Chest X-Ray 10/19/24 19:56 IMPRESSION: No acute cardiopulmonary process. Labs Labs: Laboratory Tests 10/21/24 05:44 10/21/24 05:44 Calcium 8.8 Phosphorus 3.3 Albumin 3.4 L
--- NOTE | 2024-10-21 13:39 | PCPTNOTE ---
Continue to wait for ortho consult prior to seeing pt for PT evaluation per hospitalist request. Will follow.
[2024-10-21 14:00] VITALS: BP 137/86; PULSE 73; RESP 18; TEMP 36.6; O2SAT 94
[2024-10-21 14:51] VITALS: O2SAT 96
--- NOTE | 2024-10-21 18:13 | PM.CNOR ---
Assessment and Plan Assessment and plan (1) Acute pain of right knee: Code(s): M25.561 - Pain in right knee Status: Acute Plan 79-year-old male with acute onset right knee pain after which she describes is a very active working in his yd. He has a significant effusion. I do believe that this is 1. Diagnostic probability at this point is right knee gouty arthritis. The x-ray exam was performed by the time of evaluation in the emergency room show a for stated looking right knee with all of the bony margins of the femoral as well as the tibial side being completely smoothed with a very well-maintained joint space and a moderate effusion. This is very unusual for an 79-year-old male. Therefore my diagnosis for this patient would be gouty arthritis. It is resolving at this point in time. Would defer to Dr. Russ Lopez will be seeing the patient on Monday his bilateral shoulders. I would recommend the patient be weight-bearing as tolerated and I am okay with patient being discharged today or tomorrow a follow-up with Dr. Russ Lopez History of Present Illness HPI Consult date: 10/21/24 Chief complaint: Hyponatremia, Generalized weakness, Knee pain Review of Systems Review of Systems: Patient is 79 year hyponatremia weakness as well knee. Patient was recently in April this year. 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 Most of his time spent caring for his who was in hospice care over the past few years. Last week on the patient reports doing significant amount of work in his yd and on his knees. Following day his knee swelled up and he had significant decrease in range of motion in his right knee. Then on Monday he decided he would seek medical care and was seen in the emergency room. It was at that time the hyponatremia was discovered as well as his other complaint of just generalized weakness. The patient has been seen by Dr. Russ fernandez in the past for other issues. He is scheduled to see Dr. Russ Lopez on Monday for bilateral shoulder injections. The patient is able to ambulate at this time with a knee immobilizer without much difficulty. Patient has not had any cortisone injections into the right knee. [facility] Past Medical History Medical History Hyperlipidemia Essential (primary) hypertension Arthritis, rheumatoid Enlarged prostate Colon polyp Actinic keratoses Hearing loss Overweight (BMI 25.0-29.9) Prediabetes Vasomotor rhinitis Surgical History Surgical History History of left-sided carotid endarterectomy Family History Family History (Updated 10/19/24 @ 15:04 by Umm Evangelista RN) Father Family history of Alzheimer's disease Family history of arthritis Sibling Family history of malignant neoplasm of breast Mother Family history of malignant neoplasm of stomach Grandparent Diabetes mellitus Social History Social History Smoking status: Former smoker Alcohol intake: current Drinks per week: 2 Substance use: never Lack of Transportation: No Lack of Food: Never True Current Housing: Decline to Answer Concerned About Future Housing: Decline to Answer Difficulty Paying Gas/Electric Bills: Decline to Answer Difficulty Paying for Meds: Decline to Answer Currently Unemployed: Decline to Answer Education: Decline to Answer Difficulty w/ Childcare or Family Care: Decline to Answer Spiritual care concerns: No Meds Home Medications and Allergies Home Medications ?Medication ?Instructions ?Recorded ?Confirmed ?Type aspirin 325 mg tablet 325 mg PO DAILY 04/03/19 10/19/24 History cholecalciferol (vitamin D3) 125 5,000 unit PO DAILY 04/03/19 10/19/24 History mcg (5,000 unit) tablet (Vitamin D3) multivitamin 1 cap PO DAILY 04/03/19 10/19/24 History vit C 250 mg-vit E 90 mg-zinc 40 1 tablet PO BID 04/03/19 10/19/24 History mg-copper 1 [id number] capsule lidocaine HCl 2 % mucosal jelly 1 applic topical BID PRN pain #30 05/31/19 10/19/24 Rx mL clobetasol 0.05 % scalp solution 1 applic topical DAILY #50 mL 09/23/20 10/19/24 Rx ipratropium bromide 21 mcg (0.03 2 spray intranasal .COMPLEX 05/25/22 10/19/24 History %) nasal spray mupirocin 2 % topical ointment 1 applic topical TID #22 grams 02/03/23 10/19/24 Rx fluticasone propionate 93 1 spray intranasal Q12H 05/31/23 10/20/24 History mcg/actuation breath activated aerosol (Xhance) leflunomide 20 mg tablet 20 mg PO DAILY 05/31/23 10/20/24 History triamcinolone acetonide 0.1 % 1 applic topical BID PRN itching 01/30/24 10/19/24 Rx topical cream #453.6 grams pentoxifylline 400 mg 400 mg PO TID #270 tabs 02/14/24 10/19/24 Rx tablet,extended release rosuvastatin 40 mg tablet See Rx Instructions .Route 04/29/24 10/19/24 Rx .COMPLEX #90 tabs primidone 50 mg tablet See Rx Instructions .Route 06/24/24 10/19/24 Rx .COMPLEX #360 tabs fluoxetine 20 mg capsule (Prozac) 20 mg PO DAILY #90 caps 07/22/24 10/19/24 Rx cyclosporine 0.05 % eye drops 1 drp EACH EYE BID 10/14/24 10/20/24 History (Restasis MultiDose) desmopressin 0.1 mg tablet 0.1 mg PO HS 10/14/24 10/20/24 History Allergies Allergy/AdvReac Type Severity Reaction Status Date / Time bacitracin Allergy Unknown Unknown Verified 10/19/24 15:06 benzalkonium chloride Allergy Unknown Unknown Verified 10/19/24 15:06 chlorhexidine Allergy Unknown Unknown Verified 10/19/24 15:06 gramicidin D Allergy Unknown Unknown Verified 10/19/24 15:06 latex Allergy Unknown Skin Verified 10/19/24 15:06 Reaction polymyxin B Allergy Unknown Unknown Verified 10/19/24 15:06 BACITRACIN ZINC Allergy Unknown Unknown Uncoded 10/19/24 15:06 NEOMYCIN SULFATE Allergy Unknown Unknown Uncoded 10/19/24 15:06 POLYMYXIN B SULFATE Allergy Unknown Unknown Uncoded 10/19/24 15:06 Vital Signs Vital Signs - 24 hr 10/20/24 20:00 10/20/24 20:01 10/21/24 05:08 Temperature 36.7 C 36.3 C L Pulse Rate 84 65 Respiratory Rate 18 16 Blood Pressure 149/74 H 173/96 H Pulse Oximetry 95 93 Oxygen Delivery Room Air 10/21/24 08:00 10/21/24 14:00 10/21/24 14:51 Temperature 36.6 C Pulse Rate 73 Respiratory Rate 18 Blood Pressure 137/86 Pulse Oximetry 93 94 96 Oxygen Delivery Room Air Room Air Exam Narrative: On exam the patient is alert oriented to person place and time. He is lying in bed comfortably. On exam of the patient's right lower extremity he has a good posterior tibial pulse good sensation to this extremity. He has no rashes or erythema of the right knee. He does have a palpable effusion. He is moderately tender over the medial joint line. His range of motion is from 5? to approximately 60? with pain at flexion to 60?. He reports pain in the posterior aspect of his knee as well. The right ankle examination was unremarkable. Const: General: cooperative, healthy appearing, comfortable, no acute distress, well developed, alert and awake Nutritional Appearance: average body habitus Orientation/consciousness: oriented to person, oriented to place and oriented to time Results Labs 10/21/24 05:44 10/21/24 05:44 Labs: Abnormal lab results 10/21/24 Range/Units 05:44 RBC 3.88 L (4.6-6.20) M/mm3 Hgb 12.5 L (14.0-18.0) g/dL Hct 37.9 L (42.0-52.0) % RDW 15.6 H (11.5-14.5) % Immature Gran % (Auto) 1.2 H (0-0.5) % Neut % (Auto) 75.2 H (45.5-73.1) % Lymph % (Auto) 9.6 L (18.3-44.2) % [place] % (Auto) 11.7 H (2.6-8.5) % Lymph # (Auto) 0.81 L (0.9-3.2) K/mm3 [place] # (Auto) 1.0 H (0.1-0.6) K/mm3 Abs Immat Gran (auto) 0.10 H (0.00-0.031) K/mm3 Sodium 131 L (137-145) mmol/L Anion Gap 3 L (4-12) mmol/L BUN 6 L (9-20) mg/dL Albumin 3.4 L (3.5-5.1) g/dL H & H 10/19/24 10/20/24 10/21/24 Range/Units 07:54 05:29 05:44 Hgb 12.4 L 12.2 L 12.5 L (14.0-18.0) g/dL Hct 36.6 L 35.1 L 37.9 L (42.0-52.0) % Coagulation 10/19/24 Range/Units 07:53 INR 1.1 All other labs normal.
[2024-10-21 20:07] VITALS: BP 142/84; PULSE 79; RESP 16; TEMP 36.2; O2SAT 94
[2024-10-21 23:32] VITALS: PULSE 74; RESP 20; O2SAT 98
[2024-10-22 05:17] VITALS: BP 176/89; PULSE 66; RESP 16; TEMP 36.6; O2SAT 97
[2024-10-22 06:00] LABS: Hematocrit 39.4 % (42.0-52.0); Hemoglobin 13.0 g/dL (14.0-18.0); Mean Corpuscular HGB Conc 33.0 g/dl (32-36); Mean Corpuscular Hemoglobin 32.4 pg (26-34); Mean Corpuscular Volume 98.3 fl (80-100); Platelet Count Result 258 k/mm3 (150-375); Red Blood Count 4.01 M/mm3 (4.6-6.20); White Blood Count 7.5 K/mm3 (4.5-10.0)
[2024-10-22 06:22] LABS: Alanine Aminotransferase 25 U/L (6-50); Albumin Level 3.5 g/dL (3.5-5.1); Alkaline Phosphatase 66 U/L (38-126); Anion Gap 3 mmol/L (4-12); Aspartate Amino Transferase 29 U/L (17-59); Bilirubin,Total 0.5 mg/dL (0.2-1.3); Blood Urea Nitrogen 11 mg/dL (9-20); Calcium 9.2 mg/dL (8.4-10.2); Carbon Dioxide 30 mmol/L (22-30); Chloride 99 mmol/L (98-107); Estimated CRCL calculation 88 ml/min; Estimated Glomerular Filt Rate > 60; Glucose 96 mg/dL (65-110); Potassium 4.1 mmol/L (3.4-5.0); Sodium 132 mmol/L (137-145); Total Protein 6.8 g/dL (6.3-8.2)
[2024-10-22 08:00] VITALS: O2SAT 97
[2024-10-22] MEDS: ENOXAPARIN 40 MG/0.4 ML SYRINGE SUB-Q (09:03)
[2024-10-22] MEDS: PRIMIDONE 50 MG TABLET PO ×2 (09:04→12:43)
[2024-10-22] MEDS: MULTIVITAMINS THERAPEUTIC TAB (*BKC) 1 TABLET PO (09:04)
[2024-10-22] MEDS: ASPIRIN 325 MG TABLET PO (09:04)
[2024-10-22] MEDS: PENTOXIFYLLINE 400 MG TABCR PO ×2 (09:04→12:43)
[2024-10-22] MEDS: CHOLECALCIFEROL (VITAMIN D3) 125 MCG (5,000 UNITS) TABLET PO (09:04)
[2024-10-22] MEDS: ROSUVASTATIN 20 MG TABLET 40 MG PO (09:04)
[2024-10-22] MEDS: OPTI-GEN TAB 1 TABLET PO (09:04)
[2024-10-22 10:08] LABS: Osmolality, Urine 714 mOsmol/kg (.)
--- NOTE | 2024-10-22 13:51 | PM.DS ---
DS: Admitting Diagnosis Discharge Date 10/22/24 Admitting Diagnosis Knee Pain, Abnormal Lab DS: Discharge Diagnosis Discharge Diagnosis (1) Hyponatremia: Code(s): E87.1 - Hypo-osmolality and hyponatremia Status: Acute DS: Summary Hospital Course Hospital Course: 79 y/o M with PMH of rheumatoid arthritis, hypertension, hyperlipidemia and prediabetes presents here with right knee pain and abnormal lab work. Initial VS at presentation: 97.7? F, HR 84, R 16, 155/69, and 97% on RA. ED workup showed: WBC 14.2, hemoglobin 12.4, INR 1.1, sodium 118, creatinine 0.64 and GFR >60, glucose 134, UA showed 1+ protein/2+ ketones and 6-10 RBC. L Hand XR showed mild polyarticular osteoarthritis. Knee XR showed a moderate sized right knee joint effusion with no acute osseous abnormality. Head CT showed normal aging brain, no fracture or acute intracranial process. US of the RLE showed no DVT. R/L Hand XR showed polyarticular osteoarthritis, severe at the 1st interphalangeal joint, moderate the left 2nd and right 3rd metacarpophalangeal joints in mild diet many of the remaining joints at the bilateral hands and wrists. Nephrology was consulted and Desmopressin was discontinued adn serum sodium went from 118 on admission to 132 today. Patient at bedside denies any symptoms of dizziness of gait imbalance. ALso noted right knee pain has resolved. Ortho was consulted fro right knee pain and he evaluated and noted no acute changes. F/u with PCP in 3-5 days, f/u with Nephrology as instructed Time Spent with Patient Time attestation: Total time spent providing and/or coordinating discharge services: DS: Data Data Completed and Pending Labs on day of discharge: Labs from last 24 hours 10/22/24 10/20/24 10/19/24 05:29 05:29 10:09 WBC 7.5 RBC 4.01 L Hgb 13.0 L Hct 39.4 L MCV 98.3 MCH 32.4 MCHC 33.0 RDW 15.6 H Plt Count 258 MPV 9.6 Sodium 132 L Potassium 4.1 Chloride 99 Carbon Dioxide 30 Anion Gap 3 L BUN 11 D Creatinine 0.65 L Estim Creat Clear Calc 88 Estimated GFR > 60 Glucose 96 Calcium 9.2 Total Bilirubin 0.5 AST 29 ALT 25 Alkaline Phosphatase 66 Total Protein 6.8 Albumin 3.5 Urine Osmolality 714 Free [place] Light Chains 17.2 Discharge Plan Discharge Attending physician on discharge: rBittany Canada Consulting providers: Susan Soares; Reyes Hollingsworth; Brittany Canada Discharging Clinician: Brittany Canada Anticipated Discharge Date/Time: 10/22/24 13:45 Patient Disposition: Home Activity: as tolerated Diet: as tolerated and regular Patient Instructions: Antibiotic Form Patient Language: Yemeni Stand Alone Forms: General Discharge Information Follow-up/Referrals: Susan Soares MD [Physician] - (F/u with Nephrology as instructed ) Nadeem Paz MD [Primary Care Provider] - (F/u with PCP in 3-5 days ) Reyes Hollingsworth MD [Physician] - (F/u with ortho as instructed) Discharge Medications: Continued cholecalciferol (vitamin D3) [Vitamin D3] 125 mcg (5,000 unit) tablet 5,000 unit PO DAILY aspirin 325 mg tablet 325 mg PO DAILY multivitamin Capsule 1 cap PO DAILY vit C,V-Il-nqzuk-lutein-zeaxan [id number] ls-ebuy-he-mg capsule 1 tablet PO BID Rx Instructions: administer with meals ipratropium bromide 21 mcg (0.03 %) spray,non-aerosol 2 spray intranasal .COMPLEX Rx Instructions: 2 sprays intranasally; Restasis MultiDose 0.05 % drops 1 drp EACH EYE BID clobetasol 0.05 % solution 1 applic topical DAILY Qty: 50 1RF Xhance 93 mcg/actuation aerosol breath activated 1 spray intranasal Q12H leflunomide 20 mg tablet 20 mg PO DAILY lidocaine HCl 2 % jelly 1 applic TOPICAL BID PRN (Reason: pain) Qty: 30 3RF mupirocin 2 % ointment 1 applic topical TID Qty: 22 3RF triamcinolone acetonide 0.1 % cream 1 applic TOPICAL BID PRN (Reason: itching) Qty: 453.6 1RF pentoxifylline 400 mg tablet extended release 400 mg PO TID Qty: 270 1RF rosuvastatin 40 mg tablet See Rx Instructions .ROUTE .COMPLEX Qty: 90 1RF Dose Instruction: TAKE 1 TABLET BY MOUTH DAILY Rx Instructions: TAKE 1 TABLET BY MOUTH DAILY primidone 50 mg tablet See Rx Instructions .ROUTE .COMPLEX Qty: 360 1RF Dose Instruction: TAKE 1 TABLET 4 TIMES DAILY Rx Instructions: TAKE 1 TABLET 4 TIMES DAILY fluoxetine [Prozac] 20 mg capsule 20 mg PO DAILY Qty: 90 1RF Discontinued desmopressin 0.1 mg tablet 0.1 mg PO HS Rx Instructions: 0.1 mg orally; Date of admission: 10/20/24 13:55 Primary Care Provider: Nadeem Paz Admitting Provider: Tucker Marcelino Attending physician on admission: Tucker Marcelino Condition: Serious
[2024-10-22 23:07] LABS: Osmolality, Serum 253 mOsmol/kg (280-301)
[2024-10-23 15:09] LABS: Albumin, U 54.2 % (.); Alpha-1-Globulin, U 7.3 % (.); Alpha-2-Globulin, U 8.3 % (.); Beta Globulin, U 16.0 % (.); Gamma Globulin, U 14.3 % (.)
== END 2024-10-22 15:40 | disposition home or self-care (01) | DRG 641 ==
LOC: ANHED 07:44 → ANH3MEDSUR 13:42
PROVIDERS: General Practice; Internal Medicine Nephrology; Student in an Organized Health Care Education/Training Program; Admitting Provider Internal Medicine; Emergency Provider Emergency Medicine; PCP Family Medicine; Visit Provider Internal Medicine
DX: E87.1 Hypo-osmolality and hyponatremia (principal); M06.9 Rheumatoid arthritis, unspecified; M15.9 Polyosteoarthritis, unspecified; M25.561 Pain in right knee; M10.9 Gout, unspecified; M25.461 Effusion, right knee; E78.5 Hyperlipidemia, unspecified; H91.90 Unspecified hearing loss, unspecified ear; I10 Essential (primary) hypertension; Z87.891 Personal history of nicotine dependence; Z79.82 Long term (current) use of aspirin
CPT/HCPCS: 36415; 70450; 71045; 73130; 73562; 80048; 80053; 80069; 81001; 82533; 82570; 83521; 83735; 83930; 83935; 84156; 84166; 84295; 84300; 84443; 85025; 85027; 85610; 85730; 93971; 96360; 96365; 97161; 97165; 99285; A9270; G0378; J1650; J7030; J7060

== ENCOUNTER 2024-10-28 13:47 | Outpatient (CLI) | payer OTHER, SELFPAY ==
--- OUTSIDE RECORDS SUMMARY | 2024-10-28 14:05 | XMS_ITS | Clinical Summary ---
Author Organization [facility] Address [address] [facility] [place] [address] Care Team Providers Care Secretary Of Police Name Role Phone Nadeem Paz MD Primary Care Provider [phone] Source Comments [facility],non-owned Affiliates and Associated Physician Practices is amultiple site organization consisting of ambulatory clinics and hospital sitesin [place], [place], [place] and [place]. This disclosure is being madepursuant to the Care Everywhere program and may not contain all information available regarding this patient. Last updated 17.[facility] Allergies Active Allergy Reactions Criticality Noted Date Comments Adhesive Sensitivity Rash Medium 01/23/2021 Red rash, irritation and itching noted. Resolved with benadryl Bacitracin Rash Medium 06/02/2020 Chlorhexidine Gluconate Rash Medium 06/02/2020 Jljcnugz-Fkrigsslsq-Mlhiwhds n Itching Medium 04/03/2019 Medications * Be [...] Active ipratropium (Atrovent) 0.03 % nasal spray [place] 1-2 sprays into each nostril 3 times [...] Propionate (Xhance) 93 MCG/ACT EXHUIndications :Nasal congestion [place] 1 spray into each nostril 2 times [...] Description 09/18/2024 11:15 AM CDT Office Visit [facility] - Vascular Surgery [address] [facility] 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 Legal Sex Male 4:31 AM SENIOR STACK ENGINEER Gender Identity Male 03/03/2021 12:51 PM SENIOR STACK 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 Sexual Orientation Not on file Last Filed [...] Final from Last 3 Months Insurance MEDICARE [facility] [place] [id number] Advance Directives Documents on File Type Date Recorded 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
--- OUTSIDE RECORDS SUMMARY | 2024-10-28 14:05 | XMS_ITS | Clinical Summary ---
Author Organization [facility] Address [address] [place] [address] Care Team Providers Care Db2 Systems Programmer Name Role Phone Nadeem Paz MD Primary Care Provider [phone]- [phone] Social History Tobacco Use Types Packs/Day Years [...] Insurance [employer] MEDICARE PART A Care Teams Db2 Systems Programmer Relationship Specialty Start Date End Date Nadeem Paz MD PCP - General FAMILY PRACTICE 12/31/18
--- OUTSIDE RECORDS SUMMARY | 2024-10-28 14:05 | XMS_ITS | Clinical Summary ---
Author Organization [facility] Address [address] [address] Care Team Providers Care Etiologist Name Role Phone Nadeem Paz MD Primary Care Provider [phone] Cole Albright MD Unavailable [phone] Allergies Active Allergy Reactions Criticality Noted Date Comments Adhesive Rash Medium Bacitracin Rash Medium Chlorhexidine Unknown 08/11/2022 Chlorhexidine Gluconate Rash Medium Neomycin Unknown 10/29/2018 Falpxque-Ghyuwuwkgg-Imgioalqb Rash Medium Medications rosuvastatin (CRESTOR) 40 mg [...] RASH ON ARMS AND LEGS TWICE DAILY 350 g 11 0 Active fpxsnjljsvd-V7-q yaluronic acid 1,000 mg- 25 mcg-1.65 mg [...] (05/11/2022): Added automatically from request for surgery [id number] Stenosis of left carotid artery 01/22/2021 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 Carpal tunnel syndrome 06/03/2020 Full thickness rotator cuff tear 06/03/2020 Grade III hemorrhoids 10/31/2017 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 Room: [facility] ENDOSCOPY ROOM 02 Note Status: Finalized [...] The scope was passed under direct vision.The [id number] Endoscsope was introduced through the anus and [...] On: 06/30/2022 8:45 AM Recognized by the [employer] for promoting quality in endoscopy Cole Albright MD ENDOSCOPY PROCEDURES Final R esult from Last 3 Months or Most Recently Relevant to Health Maintenance Insurance MEDICARE [facility] MEDICARE [facility] [place] [address] MEDICARE [facility] Advance Directives For more information, please contact: [phone] * Full Code (Latest Code Status on File) Date Activated Date Inactivated Comments 06/30/2022 8:22 AM 06/30/2022 2:22 PM Care Teams Etiologist Relationship Specialty Start Date End Date Nadeem Paz MD PCP - General 06/13/14 Cole Albright MD [phone] [place] [address] Surgeon Colon and Rectal Surgery 07/22/21
[2024-10-28 18:39] LABS: Anion Gap 3 mmol/L (4-12); Blood Urea Nitrogen 15 mg/dL (9-20); Calcium 8.9 mg/dL (8.4-10.2); Carbon Dioxide 29 mmol/L (22-30); Chloride 97 mmol/L (98-107); Estimated Glomerular Filt Rate > 60; Glucose 107 mg/dL (65-110); Potassium 4.4 mmol/L (3.4-5.0); Sodium 129 mmol/L (137-145)
== END 2024-10-28 13:48 | disposition home or self-care (01) ==
PROVIDERS: PCP Family Medicine; Visit Provider Family Medicine
DX: E87.1 Hypo-osmolality and hyponatremia (principal)
CPT/HCPCS: 36415; 80048

== ENCOUNTER 2024-12-19 15:53 | Emergency (ER) | payer OTHER, SELFPAY ==
[2024-12-19] VITALS (7 sets, daily range): BP systolic 111–132; BP diastolic 68–86; PULSE 77–89; RESP 16–22; TEMP 36.5–36.8; O2SAT 97–100
--- NOTE | ~2024-12-19 | US_ITS ---
BILATERAL LOWER EXTREMITY VENOUS DUPLEX Clinical History: swollen, painful lower extremities . Comparison: 10/19/2024. Technique: Grayscale, color, duplex/spectral Doppler sonography bilateral lower extremities. Findings: Bilateral common femoral, femoral, popliteal, and calf veins compressible and color Doppler patent. Normal augmentation with distal compression. No internal echoes. IMPRESSION: 1. No DVT either leg. Reviewed, dictated and finalized at location R. IMPRESSION: 1. No DVT either leg.
--- NOTE | ~2024-12-19 | XR_ITS ---
Examination: XR chest 1V portable Clinical History: extremity swelling Comparison: 10/19/2024 Technique: Portable AP Findings: Heart size normal. No focal airspace consolidation, pleural effusion, pneumothorax. Multiple calcified granulomata and calcified mediastinal and hilar nodes. No acute bony abnormality. IMPRESSION: 1. No acute cardiopulmonary findings given portable technique. Reviewed, dictated and finalized at location R.
--- OUTSIDE RECORDS SUMMARY | 2024-12-19 11:45 | XMS_ITS | Encounter Summary ---
Author Organization [facility] Address [address] [place] [address] Care Team Providers Care Clam Grader Name Role Phone Nadeem Paz MD Primary Care Provider [phone] Cole Albright MD Unavailable Reason for Visit * Reason Comments Leg Swelling Left leg swelling. 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 Gender Identity Male 04/16/2021 5:35 PM CARPENTER FOREMAN Sexual Orientation Straight 04/16/2021 5: 35 PM CARPENTER FOREMAN documented as of this encounter Last Filed Vital Signs Vital Sign Reading Time Taken Comments Blood Pressure 124/66 12/19/2024 11:36 AM CDT Pulse 78 12/19/2024 11:36 AM CDT Temperature 37.1 C (98.8 F) 12/19/2024 11:36 AM CDT Respiratory Rate 18 12/19/2024 11:36 AM CDT Oxygen Saturation 97% 12/19/2024 11:36 AM CDT Inhaled Oxygen Concentration - - Weight 84.8 kg (187 lb) 12/19/2024 11:36 AM CDT Height - - Body Mass Index 24.01 12/03/2024 11:41 AM CDT documented in this encounter Progress Notes * France Chna NP - 12/19/2024 11:45 AM CDT Images from the original note were not included. Subjective/Objective Patient ID: Abhijeet Pat is a 79 y.o. male. This patient has verbally consented to recording this visit in order to utilize AI technology in generating this note. Chief Complaint Leg Swelling (Left leg swelling. /) History of Present Illness Abhijeet Jacob is an 79 year old male who presents with bilateral leg swelling and pain. He has been experiencing bilateral leg swelling and pain for approximately six to eight weeks. Initially, he noticed puffiness on top of his foot, and was told it was water retention. In the last twoto three days, the swelling has increased, and both legs are now swollen, red, and tender up to theknees. He describes the swelling as 'touchy' and notes that his left foot was so swollen two days ago that he could not wear his usual shoes. He has a history of extremely low sodium levels, which required an emergency room visit from July 19 to July 22. His sodium levels have since stabilized at 137 mmol/L. No fevers or chills have been experienced. He denies any recent heart issues. He notes that his shortness of breath has worsened over the past six to eight months, possibly related to smoking. Review of Systems All other systems reviewed and are negative. Physical Exam EXTREMITIES: Bilateral leg swelling up to knees with heat and redness around feet and legs. Physical Exam Vitals reviewed. Constitutional: General: He is not in acute distress. Appearance: Normal appearance. He is not ill-appearing. HENT: Head: Normocephalic. Mouth/Throat: Lips: [place]. Cardiovascular: Rate and Rhythm: Normal rate and regular rhythm. Pulses: Posterior tibial pulses are 1+ on the right side and 1+ on the left side. Heart sounds: Normal heart sounds. Comments: BL pitting edema to bilateral feet, ankles, and lower legs. Feet, ankles, and lower legs are all tender to palpation per patient. Feet, ankles, and legs are warm to touch with redness notedto patient's ankles and feet. Pulmonary: Effort: Pulmonary effort is normal. Breath sounds: Normal breath sounds. No decreased breath sounds, wheezing or rhonchi. Musculoskeletal: Right lower le+ Edema present. Left lower le+ Edema present. Skin: General: Skin is warm. Neurological: Mental Status: He is alert and oriented to person, place, and time. Psychiatric: Mood and Affect: Mood normal. Behavior: Behavior is cooperative. 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 counseled pt that if any lesion returns in this area, he should RTC immediately (Added by PATTI Conv) Current Outpatient Medications: aspirin 325 mg tablet, nightly. , Disp: , Rfl: bevacizumab (AVASTIN) 25 mg/mL injection, Infuse 5 mg/kg into a venous catheter once, Disp: , Rfl: clobetasoL (TEMOVATE) 0.05 % ointment, Apply topically daily, Disp: , Rfl: cycloSPORINE (RESTASIS) 0.05 % ophthalmic emulsion, 1 drop 2 (two) times a day, Disp: , Rfl: fluocinonide (LIDEX) 0.05 % external solution, aaa scalp qd to bid prn, Disp: , Rfl: fluticasone propionate (FLONASE) 50 mcg/actuation nasal spray, Administer 1 spray into each nostrildaily, Disp: , Rfl: ipratropium (ATROVENT) 0.03 % nasal spray, SPRAY 2 SPRAYS IN EACH NOSTRIL TWICE DAILY, Disp: , Rfl: leflunomide (ARAVA) 20 mg tablet, Take 1 tablet (20 mg total) by mouth daily, Disp: , Rfl: lidocaine jelly (XYLOCAINE) 2 %, Apply topically as needed for pain, Disp: , Rfl: MULTIVITAMIN ORAL, daily., Disp: , Rfl: mupirocin (BACTROBAN) 2 % ointment, Apply topically 3 (three) times a day for 10 days, Disp: 22 g, Rfl: 0 mupirocin 2 % ointment kit, Apply topically as needed, Disp: , Rfl: pentoxifylline ER (TRENtal) 400 mg CR tablet, TK 1 T PO TID, Disp: , Rfl: 2 primidone (MYSOLINE) 50 mg tablet, QID, Disp: , Rfl: 3 rosuvastatin (CRESTOR) 40 mg tablet, nightly. , Disp: , Rfl: tadalafiL (CIALIS) 20 mg tablet, TAKE 1 TABLET BY MOUTH EVERY OTHER DAY NEEDED, Disp: , Rfl: triamcinolone (KENALOG) 0.1 % cream, APPLY TOPICALLY TWICE DAILY NEEDED FOR RASH, APPLY THIN LAYER TO RASH ON ARMS AND LEGS TWICE DAILY, Disp: 454 g, Rfl: 11 UNABLE TO FIND, Soothp eye drops, Disp: , Rfl: vit A/C/E/zinc/selenium/copper (VISION FORMULA ORAL), nightly. , Disp: , Rfl: cetirizine-pseudoephedrine ER (ZyrTEC-D) 5-120 mg per 12 hr tablet, Zyrtec-D (Patient not taking: Reported on 12/13/2024), Disp: , Rfl: ergocalciferol, vitamin D2, 2,000 unit tablet, 5,000 Units daily , Disp: , Rfl: FLUoxetine (PROzac) 20 mg capsule, Take 1 capsule (20 mg total) by mouth daily, Disp: , Rfl: urhivcaletc-X5-efxqzvyqpv acid 1,000 mg- 25 mcg-1.65 mg tablet, Glucosamine (Patient not taking: Reported on 12/13/2024), Disp: , Rfl: hydrOXYchloroQUINE (PLAQUENIL) 200 mg tablet, Take 1 tablet (200 mg total) by mouth daily (Patient not taking: Reported on 12/13/2024), Disp: , Rfl: tamsulosin (FLOMAX) 0.4 mg extended release capsule, TK 1 C PO HS (Patient not taking: Reported on 12/13/2024), Disp: , Rfl: 3 Allergies Allergen Reactions Adhesive Rash Bacitracin Rash Chlorhexidine Gluconate Rash Latex Rash Mqyrxlol-Xmxkleqntz-Duggcgoss Rash Benzalkonium Chloride Unknown Chlorhexidine Unknown Gramicidin D Unknown Neomycin Unknown Polymyxin B Unknown Social History Tobacco Use Smoking status: Former Current packs/day: 0.00 Types: Cigarettes Quit date: 07/10/2016 Years since quittin.4 Smokeless tobacco: Never Substance and Sexual Activity Drug use: No Sexual activity: None Alcohol Use: Unknown (06/30/2022) AUDIT-C Frequency of Alcohol Consumption: Monthly or less Average Number of Drinks: 1 or 2 Frequency of Binge Drinking: Not on file Past Surgical History: Procedure Laterality Date COLONOSCOPY EXAMINATION UNDER ANESTHESIA 05/05/2015 Examination under anesthesia [...] of anal canal under anesthesia with biopsy. EXAMINATION UNDER ANESTHESIA 11/10/2017 Examination under anesthesia with rubber band ligation of internal hemorrhoid 2. Fulguration of anal condyloma KNEE SURGERY SIGMOID RESECTION / RECTOPEXY TREATMENT FISTULA ANAL Assessment/Plan 1. Pain and swelling of left lower leg (Primary) 2. Pain and swelling of right lower leg 3. History of electrolyte imbalance Results Assessment & Plan Bilateral lower extremity swelling with erythema and tenderness Acute swelling with erythema and tenderness, severe with potential serious underlying conditions such as infection, DVT, heart or kidney failure. - Refer to emergency room for evaluation and management. - Evaluate for infection, kidney failure, heart failure, and/or potential electrolyte imbalance. Education --GO TO ER. Pt to drive self to [place] ER Disposition Treatment plan including expectations, follow up, and return precautions discussed with patient/parent, verbalizes understanding. Medication dosage, use, and potential adverse reactions discussed with patient/parent. Advised to follow up with PCP if symptoms do not resolve as expected or sooner if condition worsens. Signs/symptoms warranting ER evaluation reviewed. Patient and/or guardian was given an opportunity to ask questions, questions answered. France Chan NP This office note has been partially dictated using Knowledge Factor software, and as a result portions of the record may have been created with this software. Occasional wrong-word or 'mpejq-x-fitf' substitutions may have occurred due to the inherent limitations of voice recognition software. Read the chartcarefully and recognize, using context, where substitutions have occurred. Cosigned by Surinder Amos MD at 12/19/2024 12:18 PM CDT documented in this encounter Plan of Treatment Not on file documented as of this encounter Visit Diagnoses Diagnosis Pain and swelling of left lower leg- Primary Pain and swelling of right lower leg History of electrolyte imbalance documented in this encounter Care Teams Clam Grader Relationship Specialty Start Date End Date Nadeem Paz MD PCP - General 06/13/14 Cole Albright MD [phone] [place] [address] Surgeon Colon and Rectal Surgery 07/22/21 documented as of this encounter
--- OUTSIDE RECORDS SUMMARY | 2024-12-19 11:45 | XMS_ITS | Encounter Summary ---
Author Organization [facility] Address [address] [place] [address] Care Team Providers Care Parallel Computing Software Engineer Name Role Phone Nadeem Paz MD Primary Care Provider [phone] Cole Albright MD Unavailable [phone] Reason for Visit * Reason Comments Leg Swelling Left leg swelling. 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 HENT: Head: Normocephalic. Mouth/Throat: Lips: [place]. Cardiovascular: Rate and Rhythm: Normal rate and [...] total) by mouth daily, Disp: , Rfl: jlxqfifmwjz-E6-tbiqmuayxn acid 1,000 mg- 25 mcg-1.65 mg tablet, [...] Bacitracin Rash Chlorhexidine Gluconate Rash Latex Rash Yksldqwe-Wetnssxxmq-Eqwbscojv Rash Benzalkonium Chloride Unknown Chlorhexidine Unknown Gramicidin [...] TO ER. Pt to drive self to [place] ER Disposition Treatment plan including expectations, follow [...] office note has been partially dictated using [employer]ra[employer] software, and as a result portions of the record may have been created with this software. Occasional wrong-word or 'xjqel-z-emcv' substitutions may have occurred due to the [...] imbalance documented in this encounter Care Teams Parallel Computing Software Engineer Relationship Specialty Start Date End Date Nadeem Paz MD PCP - General 06/13/14 Cole Albright MD [phone] [place] [address] Surgeon Colon and Rectal Surgery 07/22/21 documented as of this encounter
--- OUTSIDE RECORDS SUMMARY | 2024-12-19 15:56 | XMS_ITS | Clinical Summary ---
Author Organization [facility] Address [address] [place] [address] Care Team Providers Care Gallery Or Museum Guide Name Role Phone Nadeem Paz MD Primary Care Provider [phone] Social History Tobacco Use Types Packs/Day Years [...] - 1-dose 75+ series) 06/21/2019 COVID-19 Vaccine (1 - 2023-2 5 season) 2024 Meningococcal B Vaccine Aged Out No l onger eligible based on patient's age to complete this topic Meningococcal Vaccine Aged Out No zaid sandra eligible based on patient's age to complete this topic RSV Immunizations Under 20 Months Aged Out No longer eligible based on patient's age to complete this topic Insurance [employer] MEDICARE PART A Care Teams Gallery Or Museum Guide Relationship Specialty Start Date End Date Nadeem Paz MD PCP - General FAMILY PRACTICE 12/31/18
--- OUTSIDE RECORDS SUMMARY | 2024-12-19 15:56 | XMS_ITS | Patient Health Record ---
Author Organization [facility] Address [address] [place] [address] Care Team Providers Care Porcelain Slusher Name Role Phone Nadeem Paz MD Primary Care Provider Unava Emeli Hernandez Unavailable [phone] Allergies Allergen (clinical drug ingredient) Drug/Non Drug Allergy documented on EMR Reaction Allergy Type Onset Date Status bacitracin Bacitracin Unknown Drug Allergy 10/29/2018 Acti ve chlorhexidine Chlorhexidine Unknown Drug Allergy 3 Active neomycin Neomycin Unknown Drug Allergy 10/29/2018 Active Results Component Value Reference Range Notes COMPREHENSIVE METABOLIC PANE L (30872) Reviewed date:09/11/2024 08:08:03 AM Interpretation:Lab Result Generalized Performing Lab:[place], [facility]-[id number] [facility], [id number] GenesisAmairani Mora MD Notes/Report: GLUCOSE 97 65-99 mg/dL [...] date:09/11/2024 08:08:03 AM Interpretation:Lab Result Generalized Performing Lab:[facility], [facility][id number] [facility], [id number] Skye Mora MD Notes/Report: WHITE BLOOD CELL [...] MPV 11.2 7.5-12.5 fL ABSOLUTE NEUTROPHILS 5912 6760-3013 cells/uL ABSOLUTE LYMPHOCYTES 8596 308-9810 cells/uL ABSOLUTE MONOCYTES 686 200-950 cells/uL ABSOLUTE EOSINOPHILS 117 15-500 cells/uL ABSOLUTE BASOPHILS 23 0-200 cells/uL NEUTROPHILS 75.8 LYMPHOCYTES 13.6 MONOCYTES 8.8 EOSINOPHILS 1.5 BASOPHILS 0.3 CBC W/DIFF Reviewed date:02/23/2024 01:52:04 PM Interpretation:Lab Result Generalized Performing Lab:[facility], [address] [facility], [place], [address] Notes/Report: WBC 6.6 3.5-10.5 10'3/uL RBC 3.56 [...] date:02/23/2024 01:52:04 PM Interpretation:Lab Result Generalized Performing Lab:[facility], [address] [facility], [place], [address] Notes/Report: Sodium 138 133-146 mmol/L Potassium 4.1 [...] 13-39 units/L Bilirubin, Total 0.4 0.2-1.2 mg/dL Reason For Referral No Information Medications Medication SIG (Take, Route, Frequency, Duration) Notes Start Date End Date Status Triamcinolone Acetonide 0.1% prn External Active cycloSPORINE 0.05 % instill 1 drop into affected eye(s) by ophthalmic route every 12 hours ophthalmic (eye) 2 *Pick strength-form from [employer] for eRX* Active Aspirin 325 MG one tablet daily Oral Active Cerovite Senior take 1 tablet by oral route once Oral 1 Active Glucosamine Chondroitin Complx 550-30-1 mg take 1 capsule by oral route once Oral 1 *Pick strength-form from [employer] for eRX* Active Pentoxifylline ER 400 MG take 1 tablet (400 mg) by oral route 3 times per day with meals Oral 3 Active areds 3 - bid - *Reorder from [employer] for eRx and Interaction Alerts* Active Soothe XP 1-4.5 % 1-2 drops in ea eye daily Ophthalmic *Pick strength-form from [employer] for eRX* Active ZyrTEC-D Allergy & Congestion 5-120 MG take 1 tablet by oral route 2 times per day Oral 2 Active Xhance 93 MCG/ACT SPRAY TWO SPRAYS INTO THE NOSE TWO TIMES DAILY EACH NOSTRIL Nasal; Duration: 30 Days Active Vision Formula (V-I-I-Zn-nivia) 14,320-226-200 cilm-so-eacs take 1 capsule by oral route once oral 1 *Reorder from [employer] for eRx and Interaction Alerts* Active Avastin intravitreal injection - left eye - *Reorder from [employer] for eRx and Interaction Alerts* Active MiraLax 17 GM take 17 gram [...] W/U Status Risk Notes Problem Rheumatoid arthritis (06409994) Rheumatoid arthritis without rheumatoid factor, multiple sites (M06.09) Active confirmed Problem Osteoarthritis (201572678) Osteoarthritis, unspecified osteoarthritis type, unspecified site (M19.90) Active confirmed Problem Degenerative disorder of macula (149490717) Macular degeneration, unspecified laterality, unspecified type (H35.30) Active confirmed Vital Signs Heart Rate 63 /min 09/26/2024 Temperature 98.1 degrees Fahrenheit 09/26/2024 Blood pressure diastolic 80 mm Hg 09/26/2024 Oximetry 96 % 09/26/2024 Height-cm 187.96 cm 09/26/2024 Weight-kg 88.04 kg 09/26/2024 Height 74 in 09/26/2024 Blood pressure systolic 120 mm Hg 09/26/2024 Weight 194.1 lbs 09/26/2024 BMI 24.92 kg/m2 09/26/2024 Encounters Encounter Location Date Provider Diagnosis [facility] [address] [place] [address] 02/22/2024 Emeli Ramon Rheumatoid arthritis without rheumatoid factor, multiple sites M06.09 ; Osteoarthritis, unspecified osteoarthritis type, unspecified site M19.90 and High risk medication use Z79.899 [facility] [address] [place] [address] 05/30/2024 Emeli Ramon Rheumatoid arthritis without rheumatoid factor, multiple sites M06.09 ; Osteoarthritis, unspecified osteoarthritis type, unspecified site M19.90 and High risk medication use Z79.899 [facility] [address] [place] [address] 09/26/2024 Emeli Du Rheumatoid arthritis without rheumatoid factor, multiple sites M06.09 ; Osteoarthritis, unspecified osteoarthritis type, unspecified site M19.90 and High risk medication use Z79.899 [facility] [address] [place] [address] [facility] [address] [place] [address] 02/06/2024 [facility] [address] [place] [address] 04/26/2024 [facility] [address] [place] [address] 07/22/2024 [facility] [address] [place] [address] 08/08/2024 Emeli Du Assessments Encounter Date Diagnosis (ICD Code) Assessment Notes Treatment Notes Treatment Clinical Notes Section Notes 02/22/2024 Rheumatoid arthritis without rheumatoid factor, multiple sites (ICD-10 - M06.09) mildly symptomatic, continue arva, labs today, return in 3 months 02/22/2024 Osteoarthritis, unspecified osteoarthritis type, unspecified site (ICD-10 - M19.90) mildly symptomatic, continue arva, labs today, return in 3 months 05/30/2024 Rheumatoid arthritis without rheumatoid factor, multiple sites (ICD-10 - M06.09) stable overall, continue arava, labs today, return [...] risk medication use (ICD-10 - Z79.899) stable overall, continue arava, labs today, return [...] Insured Coverage Start Date Coverage End Date [facility] [address] [address] [place] [address] [id number] Abhijeet Pat Self - patient is the insured [facility] Shared Serv Non-Medic are [address] [address] [place], [place] [id number] Abhijeet Pat Self - patient is the insured 9 Medical (General) History Medical History History ICD Code Cervical spine fracture; Hyperlipidemia; Hypertension; Rheumatoid arthritis; Surgical History Surgery Date(Month/Year) Carpal tunnel release; 2018-11-14 Knee arthroscopy; 2018-11-14 hemorrhoidectomy; 2018-11-14 Rectal prolapse repair; 2018-11-14
--- OUTSIDE RECORDS SUMMARY | 2024-12-19 15:56 | XMS_ITS | Clinical Summary ---
Author Organization [facility] Address [address] [place] [address] Care Team Providers Care Health Inspector Name Role Phone Nadeem Paz MD Primary Care Provider [phone] Source Comments [facility],non-owned Affiliates and Associated Physician Practices is amultiple site organization consisting of ambulatory clinics and hospital sitesin [place], [place], [place] and [place]. This disclosure is being madepursuant to the Care Everywhere program and may not contain all information available regarding this patient. Last updated 17.[facility] Allergies Active Allergy Reactions Criticality Noted Date Comments Adhesive Sensitivity Rash Medium 01/23/2021 Red rash, irritation and itching noted. Resolved with benadryl Bacitracin Rash Medium 06/02/2020 Chlorhexidine Gluconate Rash Medium 06/02/2020 Eeghhxdp-Qbsamoymtp-Koewhjej n Itching Medium 04/03/2019 Medications * Be [...] Active ipratropium (Atrovent) 0.03 % nasal spray [place] 1-2 sprays into each nostril 3 times [...] Propionate (Xhance) 93 MCG/ACT EXHUIndications :Nasal congestion [place] 1 spray into each nostril 2 times [...] Description 09/18/2024 11:15 AM CDT Office Visit [facility] - Vascular Surgery [address] [place] [address] Sunita Jade MD Bilateral carotid artery stenosis (Primary Dx) 09/18/2024 10:00 AM CDT - 09/18/2024 11:59 PM CDT Hospital Encounter [facility] [address] [place] [address] Sunita Jade MD Discharge Disposition: Home or Self Care 09/18/2024 Travel from Last 3 Months Immunizations Immunization Administration Dates Next Due [employer] primary monoval ent 12+ yr 0.3mL Purple [...] Sex Assigned at Male 03/03/2021 12:51 PM [employer] Legal Sex Male 4:31 AM [employer] Gender Identity Male 03/03/2021 12:51 PM [employer] Sexual Orientation Not on file Last Filed [...] 75+ series) 06/21/2019 COVID-19 VACCINE ( season) 2024 01/13/2022, 10/08/2021, 01/07/2021, Additional history exists INFLUENZA [...] Final from Last 3 Months Insurance MEDICARE [facility] Address: [facility] [id number] [place] [id number] Advance Directives Documents on File Type Date Recorded Patient Blue Prints Trimmer Expl anation Adv Directive/Living Will/POA 08/03/2021 6:24 AM Adv Directive/Living Will/POA 01/26/2021 9:50 AM * Full Code (Latest Code Status on File) Date Activated Date Inactivated Comments 01/22/2021 3:37 PM 01/23/2021 1:13 PM Care Teams Health Inspector Relationship Specialty Start Date End Date Nadeem Paz MD [address] [place] [address] PCP - General 03/14/19
--- OUTSIDE RECORDS SUMMARY | 2024-12-19 15:56 | XMS_ITS | Clinical Summary ---
Author Organization [facility] Address [address] [address] Care Team Providers Care Anodic Operator Name Role Phone Nadeem Paz MD Primary Care Provider [phone] Cole Albright MD Unavailable [phone] Allergies Active Allergy Reactions Criticality Noted Date Comments Adhesive Rash Medium Bacitracin Rash Medium Benzalkonium Chloride Unknown 11/15/2024 Chlorhexidine Unknown 08/11/2022 Chlorhexidine Gluconate Rash Medium Gramicidin D Unknown 11/15/2024 Latex Rash Medium 11/15/2024 Neomycin Unknown 10/29/2018 Dwlvfsec-Xetjhmvgeo-Mzfdvqttf Rash Medium Polymyxin B Unknown 11/15/2024 Medications rosuvastatin (CRESTOR) 40 mg tablet nightly. [...] TWICE DAILY 454 g 11 0 Active ohxqctiogdu-T5-i yaluronic acid 1,000 mg- 25 mcg-1.65 mg [...] MOUTH EVERY OTHER DAY NEEDED 5 Active mupirocin (BACTROBAN) 2 % ointment Apply topically 3 (three) times a day for 10 days 22 g 5 12/24/19 25 Active Active Problems Problem Noted Date Diagnosed Date Actinic keratoses 12/13/2024 Acute delirium 12/13/2024 Acute hyponatremia 12/13/2024 Anemia 12/13/2024 Arthralgia of both hands 12/13/2024 Biliary dyskinesia 12/13/2024 Carcinoma in situ of rectum 12/13/2024 Chronic sinusitis 12/13/2024 Closed fracture of cervical vertebra 12/13/2024 Colon polyp 12/13/2024 Cough 12/13/2024 Deviated septum 12/13/2024 Elevated carcinoembryonic antigen (CEA) 12/14/19 Essential (primary) hypertension 12/13/2024 Essential tremor 12/13/2024 Fracture of toe of right foot 12/13/2024 Hand swelling 12/13/2024 Hearing loss 12/13/2024 Hydrocele, unspecified 12/13/2024 Hyperlipidemia 12/13/2024 Impotence of organic origin 12/13/2024 Knee pain, bilateral 12/13/2024 Macular degeneration of both eyes 12/13/2024 Nicotine dependence, cigarettes, uncomplicated 0 12/13/2024 Overweight (BMI 25.0-29.9) 12/13/2024 Peripheral vascular disease, unspecified 025 Prediabetes 12/13/2024 Rectal prolapse 12/13/2024 Rib fracture 12/13/2024 Sciatica 12/13/2024 Spondylosis 12/13/2024 Spondylosis of cervical willis on without myelopathy or radiculopathy 12/13/2024 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 Stiffness of right hand joint 12/13/2024 Strain of ankle, left 12/13/2024 Strain of lumbar region 12/13/2024 Subacute rheumatic arthritis 12/13/2024 Umbilical hernia without obstruction and without gangrene 12/13/2024 Vasomotor rhinitis 12/13/2024 Vertigo 12/13/2024 Weakness 12/13/2024 Right carpal tunnel syndrome 12/13/2024 Anogenital (venereal) warts 12/13/2024 Seborrheic keratosis 12/13/2024 Skin tag 12/13/2024 Stenosis of anus and rectum 12/13/2024 Complete rotator cuff tear 12/13/2024 Arthritis, rheumatoid 12/13/2024 Left carotid stenosis 12/13/2024 Macular degeneration 10/04/2024 Osteoarthritis 10/04/2024 Rheumatoid arthritis 10/04/2024 AIN (anal intraepithelial neoplasia) anal canal 05/11/2022 Overview (05/11/2022): Added automatically from request for surgery [id number] Stenosis of left carotid artery 01/22/2021 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 Carpal tunnel syndrome 06/03/2020 Full thickness rotator cuff tear 06/03/2020 Grade III hemorrhoids 10/31/2017 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 Overview (10/31/2017): Added automatically from request for surgery [id number] Unintended weight loss 08/30/2016 Inflamed seborrheic keratosis [...] Encounters Date Type Department Care Team Description 12/19/2024 11:45 AM CDT Office Visit [facility] at [address] [phone] France Chan NP Pain and swelling of left lower leg (Primary Dx); Pain and swelling of right lower leg; History of electrolyte imbalance 12/13/2024 11:05 AM CDT Ancillary Procedure [facility] Imaging at [address] [phone] Accidental fall, initial encounter 12/13/2024 11:00 AM CDT Ancillary Procedure [facility] at [address] [phone] Accidental fall, initial encounter 12/13/2024 10:55 AM CDT Ancillary Procedure [facility] at [address] [phone] Accidental fall, initial encounter 12/13/2024 10:30 AM CDT Office Visit [facility] at [address] [phone] Oriana Yang NP Accidental fall, initial encounter (Primary Dx); Skin tear of left elbow without complication, initial encounter; Acute right ankle pain; Left hand pain; Left wrist pain 12/03/2024 11:15 AM CDT Office Visit [facility] [address] [place] [phone] Cole Albright MD Anal intraepithelial neoplasia III (Primary Dx) 10/04/2024 12:45 PM CDT Office Visit [facility] at [address] [phone] Chani Walsh NP Swelling of left hand (Primary Dx); Left hand pain from Last 3 Months Immunizations Immunization Administration Dates Next Due Influenza, Quadrivalent, Rec ombinant, Egg Free, Preservative Free, Intramuscular 12/11/2018 Influenza, Quadrivalent, Spl it, Intramuscular 04/19/2013 Influenza, Split 12/18/2017 Influenza, Trivalent, High D ose, Split, Preservative Free, Intramuscular 12/07/2023,02/03/2023,12/30/2021,01/16 Influenza, Trivalent, IM (MDV) ,12/11/2018,12/18/2017,01/24,01/15/2016,12/25/2014,11/15/2013 Influenza, Unspecified 01/07/2021,12/31/2019 Pneumococcal Conjugate PCV 13 12/25/2014 Pneumococcal Polysaccharide PPV23 11/15/2013 TD Preservative Free 10/30/2020 Td, Not Adsorbed 12/25/2014 Tdap 10/30/2020 ZOSTER LIVE 09/27/2022 Surgical History Surgery Date Site/Laterality Comments EXAMINATION [...] on file Legal Sex Male 1:43 AM RESOURCE CONSERVATION MANAGER Gender Identity Male 04/16/2021 5:35 PM RESOURCE CONSERVATION MANAGER Sexual Orientation Straight 04/16/2021 5: 35 PM RESOURCE CONSERVATION MANAGER Obstetrics History Last Filed Vital Signs [...] (187 lb) 12/19/2024 11:36 AM CDT Height 188 cm (6' 2) 12/03/2024 11:41 AM CDT Body Mass Index 24.01 12/03/2024 11:41 AM CDT Plan of Treatment Health Maintenance Due Date Last Done Comments Depression Screening 1945 Hepatitis B Screening 1963 Well Visit 65+ 2009 Zoster Vaccine (1 of 2) 11/22/2022 09/27/2022 Fall Risk Assessment 07/01/2023 06/30/2022 Covid-19 Vaccine (4 - 2024-2 6 season) 2024 01/07/2021, 06/07/2020, 05/12/2020 Influenza Vaccine (#1) 2024 , 02/03/2023, 12/30/2021, Additional history exists DTaP/Tdap/Td Vaccine (2 - Td or Tdap) 10/30/2030 10/30/2020, 10/30/2020, 12/25/2014 Pneumococcal vaccine 65+ Completed 12/25/2014, 10/19 Abdominal Aortic Aneurysm (A AA) Screen Completed [...] Procedure Name Priority Date/Time Associated Diagnosis Comments XR WRIST LEFT 3 OR MORE VIEWS Schedule DEANNE, Read DEANNE (Appt Today, Awaiting Results) 12/13/2024 11:30 AM CDT Accidental fall, initial encounter XR ANKLE RIGHT 3 OR MORE VIEWS Schedule DEANNE, Read DEANNE (Appt Today, Awaiting Results) 12/13/2024 11:30 AM CDT Accidental fall, initial encounter XR HAND LEFT 3 OR MORE VIEWS Schedule DEANNE, Read DEANNE (Appt Today, Awaiting Results) 12/13/2024 11:30 AM CDT Accidental fall, initial encounter WOUND CARE Routine 12/13/2024 11:04 AM CDT Accidental fall, initial encounter Skin tear of left elbow without complication, initial encounter COLONOSCOPY 06/30/2022 8:45 AM CDT from Last 3 Months or Most Recently Relevant to Health Maintenance Results * XR Wrist Left 3 or More Views (12/13/2024 11:30 AM CDT) Anatomical Region Laterality Modality Upper Extremities, Wrist Left Digital Radiography 12/13/2024 12:0 3 PM CDT Narrative 12/13/2024 12:09 PM CDT EXAM DESCRIPTION: XR HAND LEFT 3 OR MORE VIEWS; XR WRIST LEFT 3 OR MORE VIEWS REASON FOR STUDY: Left wrist and hand pain after fall yesterday. Swelling and bruising. TECHNIQUE: Three views of the left hand and three views of the left wrist COMPARISON: Left hand radiographs 08/11/2022 FINDINGS: BONES/JOINTS: No acute fracture or dislocation. The carpal arcs are intact. Minimal diffuse interphalangeal joint osteoarthritis. Moderate interphalangeal joint osteoarthritis of the 1st digit. SOFT TISSUES: Within normal limits. IMPRESSION: 1. No acute osseous abnormality. 2. Moderate interphalangeal joint osteoarthritis of the 1st digit. THIS IS AN ELECTRONICALLY VERIFIED FINAL REPORT 12/13/2024 12:09 PM - Electronically signed by Ben CAMPOS T: Report ID: [id number] Reading Location: [id number] Procedure Note Ben Vincent MD - 12/13/2024 EXAM DESCRIPTION: XR HAND LEFT 3 OR MORE VIEWS; XR WRIST LEFT 3 OR MORE VIEWS REASON FOR STUDY: Left wrist and hand pain after fall yesterday. Swellingand bruising. TECHNIQUE: Three views of the left hand and three views of the left wrist COMPARISON: Left hand radiographs 08/11/2022 FINDINGS: BONES/JOINTS: No acute fracture or dislocation. The carpalarcs are intact. Minimal diffuse interphalangeal joint osteoarthritis.Moderate interphalangeal joint osteoarthritis of the 1st digit. SOFT TISSUES: Within normal limits. IMPRESSION: 1. No acute osseous abnormality. 2. Moderate interphalangeal joint osteoarthritis of the 1st digit. THIS IS AN ELECTRONICALLY VERIFIED FINAL REPORT 12/13/2024 12:09 PM - Electronically signed by Ben Vincent M.D. LB T: Report ID: [id number] Reading Location: [id number] Oriana Yang NP IMG XR PROCEDURES Final Result * XR Ankle Right 3 or More Views (12/13/2024 11:30 AM CDT) Anatomical Region Laterality Modality Lower Extremities, Ankle Right Digital Radiography 12/13/2024 12:1 0 PM CDT Narrative 12/13/2024 12:11 PM CDT EXAM DESCRIPTION: XR ANKLE RIGHT 3 OR MORE VIEWS REASON FOR STUDY: Right ankle pain after fall yesterday. TECHNIQUE: Three views of the right ankle COMPARISON: None FINDINGS: BONES/JOINTS: No acute fracture or dislocation. The ankle mortise is preserved. SOFT TISSUES: Moderate amount of soft tissue swelling surrounding the lateral malleolus. IMPRESSION: 1. No acute osseous abnormality. 2. Moderate amount of soft tissue swelling surrounding the lateral malleolus. THIS IS AN ELECTRONICALLY VERIFIED FINAL REPORT 12/13/2024 12:11 PM - Electronically signed by Ben CAMPOS T: Report ID: [id number] Reading Location: [id number] Procedure Note Ben Vincent MD - 12/13/2024 EXAM DESCRIPTION: XR ANKLE RIGHT 3 OR MORE VIEWS REASON FOR STUDY: Right ankle pain after fall yesterday. TECHNIQUE: Three views of the right ankle COMPARISON: None FINDINGS: BONES/JOINTS: No acute fracture or dislocation. The anklemortise is preserved. SOFT TISSUES: Moderate amount of soft tissue swelling surrounding thelateral malleolus. IMPRESSION: 1. No acute osseous abnormality. 2. Moderate amount of soft tissue swelling surrounding the lateralmalleolus. THIS IS AN ELECTRONICALLY VERIFIED FINAL REPORT 12/13/2024 12:11 PM - Electronically signed by Ben CAMPOS T: Report ID: [id number] Reading Location: [id number] Oriana Yang BLOOD BANK TECHNOLOGIST IMG XR PROCEDURES Final Result * XR Hand Left 3 or More Views (12/13/2024 11:30 AM CDT) Anatomical Region Laterality Modality Upper Extremities, Hand Left Digital Radiography 12/13/2024 12:0 3 PM CDT Narrative 12/13/2024 12:09 PM CDT EXAM DESCRIPTION: XR HAND LEFT 3 OR MORE VIEWS; XR WRIST LEFT 3 OR MORE VIEWS REASON FOR STUDY: Left wrist and hand pain after fall yesterday. Swelling and bruising. TECHNIQUE: Three views of the left hand and three views of the left wrist COMPARISON: Left hand radiographs 08/11/2022 FINDINGS: BONES/JOINTS: No acute fracture or dislocation. The carpal arcs are intact. Minimal diffuse interphalangeal joint osteoarthritis. Moderate interphalangeal joint osteoarthritis of the 1st digit. SOFT TISSUES: Within normal limits. IMPRESSION: 1. No acute osseous abnormality. 2. Moderate interphalangeal joint osteoarthritis of the 1st digit. THIS IS AN ELECTRONICALLY VERIFIED FINAL REPORT 12/13/2024 12:09 PM - Electronically signed by Ben CAMPOS T: Report ID: [id number] Reading Location: [id number] Procedure Note Ben Vincent MD - 12/13/2024 EXAM DESCRIPTION: XR HAND LEFT 3 OR MORE VIEWS; XR WRIST LEFT 3 OR MORE VIEWS REASON FOR STUDY: Left wrist and hand pain after fall yesterday. Swellingand bruising. TECHNIQUE: Three views of the left hand and three views of the left wrist COMPARISON: Left hand radiographs 08/11/2022 FINDINGS: BONES/JOINTS: No acute fracture or dislocation. The carpalarcs are intact. Minimal diffuse interphalangeal joint osteoarthritis.Moderate interphalangeal joint osteoarthritis of the 1st digit. SOFT TISSUES: Within normal limits. IMPRESSION: 1. No acute osseous abnormality. 2. Moderate interphalangeal joint osteoarthritis of the 1st digit. THIS IS AN ELECTRONICALLY VERIFIED FINAL REPORT 12/13/2024 12:09 PM - Electronically signed by Ben CAMPOS T: Report ID: [id number] Reading Location: [id number] Oriana Yang NP IM XR PROCEDURES Final Result * Wound Care (12/13/2024 11:04 AM CDT) Narrative Oriana Yang NP - 12/13/2024 11:04 AM CDT Oriana Yang NP 12/13/2024 11:55 AM Wound Care Date/Time: 12/13/2024 11:04 AM Performed by: Oriana Yang NP Authorized by: Oriana Yang NP Consent: Consent obtained: Verbal Consent given by: Patient Risks discussed: Infection, pain and poor cosmetic result Alternatives discussed: Observation, alternative treatment, no treatment and referral [place] protocol: Procedure explained and questions answered to patient or proxy's satisfaction: yes Patient identity confirmed: Verbally with patient Procedure details: Indications: open wounds Indications comment: Skin tear Wound location: left elbow. Wound age (days): 2 Dressing: Dressing applied: Telfa pad and Vaseline gauze Wrapped with: Elastic bandage 3 inch Post-procedure details: Procedure completion: Tolerated well, no immediate complications us Oriana Yang BLOOD BANK TECHNOLOGIST IN CLINIC/BEDSIDE ORDERABLES Fi nal Result * COLONOSCOPY (06/30/2022 8:45 AM CDT) Anatomical Region Laterality Modality Other Narrative Procedure Note Cole Albright MD - 06/30/2022 8:45 AM CDT [facility] Patient Name: Mesfin Haro Procedure Date: 06/30/2022 8:45 AM Date of : 1945 Admit Type: Outpatient Age: 77 Gender: Male Attending MD: Cole Albright M.D. Room: [facility] ENDOSCOPY ROOM 02 Note Status: Finalized [...] The scope was passed under direct vision.The [id number] Endoscsope was introduced through the anus and [...] On: 06/30/2022 8:45 AM Recognized by the [employer] for promoting quality in endoscopy Cole Albright MD ENDOSCOPY PROCEDURES Final R esult from Last 3 Months or Most Recently Relevant to Health Maintenance Insurance MEDICARE [facility] MEDICARE [facility] [place] [place] [address] [place] [address] MEDICARE [facility] Advance Directives For more information, please contact: [phone] * Full Code (Latest Code Status on File) Date Activated Date Inactivated Comments 06/30/2022 8:22 AM 06/30/2022 2:22 PM Care Teams Anodic Operator Relationship Specialty Start Date End Date Nadeem Paz MD PCP - General 06/13/14 Cole Albright MD [phone] [place] [address] Surgeon Colon and Rectal Surgery 07/22/21
--- NOTE | 2024-12-19 16:21 | ECG_ITS ---
Test Date: 2024-12-19 16:34:14 Measurements Intervals Sublimity Rate: 81 P: -47 WV: 149 QRS: 70 QRSD: 98 T: 51 QT: 370 QTc: 432 Interpretive Statements SINUS RHTYHM SUPRAVENTRICULAR TRIPLET AND SUPRAVENTRICULAR PREMATURE COMPLEXES ABNORMAL ECG No previous ECG available for comparison Electronically Signed On 12-19-2024 16:44:15 CDT by Lorenzo Weldon D.O.
[2024-12-19 17:50] LABS: Hematocrit 36.6 % (42.0-52.0); Hemoglobin 11.9 g/dL (14.0-18.0); Immature Granulocyte Percent A 0.7 % (0-0.5); Lymphocytes Absolute Auto 1.15 K/mm3 (0.9-3.2); Mean Corpuscular HGB Conc 32.5 g/dl (32-36); Mean Corpuscular Hemoglobin 33.0 pg (26-34); Mean Corpuscular Volume 101.4 fl (80-100); Nucleated Red Blood Cells Absolute Auto 0.000 K/mm3 (0.0-0.012); Nucleated Red Blood Cells Perc 0.0 % (0.0-0.2); Platelet Count Result 274 k/mm3 (150-375); Red Blood Count 3.61 M/mm3 (4.6-6.20); White Blood Count 10.1 K/mm3 (4.5-10.0)
[2024-12-19 18:02] LABS: Add Urine Microscopic? NO; Appearance Urine Clear (Clear); Glucose Urine UA Negative (Negative); Leukocyte Esterase Ur Negative LEU/UL (Negative); Nitrate Urine Negative (Negative); Specific Grav Ur 1.017 (1.001-1.035)
[2024-12-19 18:02] LABS: INR 1.1; Prothrombin Time 13.8 Seconds (11.1-14.7)
[2024-12-19 18:03] LABS: Partial Thromboplastin Time 33.2 Seconds (22.3-36.8)
[2024-12-19 18:08] LABS: Alanine Aminotransferase 26 U/L (6-50); Albumin Level 3.7 g/dL (3.5-5.1); Alkaline Phosphatase 80 U/L (38-126); Anion Gap 4 mmol/L (4-12); Aspartate Amino Transferase 31 U/L (17-59); Bilirubin,Total 0.3 mg/dL (0.2-1.3); Blood Urea Nitrogen 12 mg/dL (9-20); Calcium 9.1 mg/dL (8.4-10.2); Carbon Dioxide 30 mmol/L (22-30); Chloride 99 mmol/L (98-107); Estimated Glomerular Filt Rate > 60; Glucose 111 mg/dL (65-110); Potassium 3.7 mmol/L (3.4-5.0); Sodium 133 mmol/L (137-145); Total Protein 7.1 g/dL (6.3-8.2)
--- NOTE | 2024-12-19 18:09 | ED.RECABL ---
HPI - Recheck/Abnormal Lab/Rx General Chief Complaint: Recheck/Abnormal Lab/Rx Stated Complaint: Herbie leg swelling, Time Seen by Provider: 12/19/24 17:36 History of Present Illness HPI narrative: Patient is an 79-year-old male who presents to the ER with complaints of bilateral lower extremity swelling and pain. He reports his symptoms started approximately 3 days ago. Patient reports the swelling has progressed up to his knees. He denies any history of congestive heart failure. Patient endorses a history of hyperlipidemia, chronic sinus issues, arthritis, peripheral artery disease. He denies any history of diabetes. Patient denies any chest pain, shortness of breath, or recent fevers. Related Data Home Medications ?Medication ?Instructions ?Recorded ?Confirmed ?Last Taken ?Type aspirin 325 mg tablet 325 mg PO DAILY 04/03/19 12/09/24 10/18/24 History cholecalciferol (vitamin D3) 125 5,000 unit PO DAILY 04/03/19 12/09/24 10/18/24 History mcg (5,000 unit) tablet (Vitamin D3) multivitamin 1 cap PO DAILY 04/03/19 12/09/24 10/18/24 History vit C 250 mg-vit E 90 mg-zinc 40 1 tablet PO BID 04/03/19 12/09/24 10/18/24 History mg-copper 1 sy-yiuzzd-zyhkda capsule ipratropium bromide 21 mcg (0.03 2 spray intranasal .COMPLEX 05/25/22 12/09/24 10/18/24 History %) nasal spray fluticasone propionate 93 1 spray intranasal Q12H 05/31/23 12/09/24 10/18/24 History mcg/actuation breath activated aerosol (Xhance) leflunomide 20 mg tablet 20 mg PO DAILY 05/31/23 12/09/24 10/18/24 History cyclosporine 0.05 % eye drops 1 drp EACH EYE BID 10/14/24 12/09/24 Unknown History (Restasis MultiDose) Allergies Allergy/AdvReac Type Severity Reaction Status Date / Time bacitracin Allergy Intermediate Unknown Verified 12/09/24 08:18 chlorhexidine Allergy Intermediate Rash Verified 11/27/24 14:34 benzalkonium chloride Allergy Unknown Unknown Verified 11/27/24 14:34 gramicidin D Allergy Unknown Unknown Verified 11/27/24 14:34 latex Allergy Unknown Skin Verified 11/27/24 14:34 Reaction polymyxin B Allergy Unknown Unknown Verified 11/27/24 14:34 NEOMYCIN SULFATE Allergy Unknown Unknown Uncoded 11/27/24 14:34 POLYMYXIN B SULFATE Allergy Unknown Unknown Uncoded 11/27/24 14:34 Review of Systems Review of Systems: All systems reviewed & are unremarkable except as noted in HPI and below PMFSH Past Medical History Medical History Hyperlipidemia Essential (primary) hypertension Arthritis, rheumatoid Enlarged prostate Colon polyp Actinic keratoses Hearing loss Overweight (BMI 25.0-29.9) Prediabetes Vasomotor rhinitis Surgical History Surgical History History of left-sided carotid endarterectomy Family History Family History Father Family history of Alzheimer's disease Family history of arthritis Sibling Family history of malignant neoplasm of breast Mother Family history of malignant neoplasm of stomach Grandparent Diabetes mellitus Cerebrovascular accident Social History Social History Smoking status: Current some day smoker Alcohol intake: current Drinks per week: 2 Alcohol use details: Occasional Substance use: never Current Housing: Decline to Answer Concerned About Future Housing: Decline to Answer Difficulty Paying Gas/Electric Bills: Decline to Answer Difficulty Paying for Meds: Decline to Answer Currently Unemployed: Decline to Answer Education: Decline to Answer Difficulty w/ Childcare or Family Care: Decline to Answer Spiritual care concerns: No Exam Narrative: GENERAL: Well appearing, well-nourished, non-toxic, in no acute distress. HEAD: Normocephalic, atraumatic. NECK: Supple. No adenopathy, no masses. RESPIRATORY: Airway patent, respirations nonlabored. Crackles to RL lobe CARDIOVASCULAR: irregular without murmurs, rubs, or gallops. Significantly swollen bilateral lower extremities from toes to knees. ABDOMINAL: Soft, nontender, nondistended, no hepatosplenomegaly. Normoactive BS. MUSCULOSKELETAL: Moves all extremities. Strength/ROM intact without gross deformities. SKIN: Warm, dry, normal color. No rashes. NEURO: A&O X3. Speech clear. Cranial nerves II-XII intact. No ataxic movements. PSYCHIATRIC: Appropriate mood and affect. Normal interaction. Course Vital Signs Vital signs: Vital Signs Temperature 36.8 C 12/19/24 16:18 Pulse Rate 86 12/19/24 16:18 Respiratory Rate 16 12/19/24 16:18 Blood Pressure 132/84 12/19/24 16:18 Pulse Oximetry 97 12/19/24 16:18 Temperature 36.8 C 12/19/24 16:18 Pulse Rate 77 12/19/24 18:46 Respiratory Rate 18 12/19/24 18:46 Blood Pressure 125/71 12/19/24 18:46 Pulse Oximetry 100 12/19/24 18:46 Oxygen Delivery Room Air 12/19/24 17:47 MDM - Recheck/Abnormal Lab/Rx MDM Narrative Medical decision making narrative: Patient is an 79-year-old male who presents to the ER with complaints of bilateral lower extremity swelling and pain. He reports his symptoms started approximately 3 days ago. Patient reports the swelling has progressed up to his knees. He denies any history of congestive heart failure. Patient endorses a history of hyperlipidemia, chronic sinus issues, arthritis, peripheral artery disease. He denies any history of diabetes. Patient denies any chest pain, shortness of breath, or recent fevers. Labs Ordered: CBC, CMP, proBNP, PTT, INR, troponin, UA Imaging Ordered: Chest x-ray, ultrasound venous Doppler bilateral lower extremity Medications Ordered: Lasix 40 mg IV Results: Patient's CBC results are similar to previous results in his chart. His chemistry indicates a sodium of 133, which is baseline for patient. Patient's proBNP is 368, which is within normal limits for his age range. His urinalysis was unremarkable. Diagnosis: Lower extremity edema Patient Education/Shared MDM: Results of lab work and imaging shared with patient. He endorses improvement of symptoms following Lasix medication administration. Patient strongly advised to maintain hydration status upon discharge and follow-up with their PCP as soon as possible. He will be discharged home with a prescription for Lasix x3 days. Patient was also advised to keep his lower extremities elevated and to wear compression stockings. Strict return precautions provided. Patient verbalized understanding and is in agreement with plan. Vital signs stable at time of discharge. All questions answered. Differential Diagnosis Differential diagnosis: Likely other (Congestive heart failure, lower extremity edema, DVT) Lab Data Attestation: I reviewed the patient's lab results. 12/19/24 17:35 12/19/24 17:35 Labs: Lab Results 12/19/24 12/19/24 Range/Units 17:35 17:39 WBC 10.1 H (4.5-10.0) K/mm3 RBC 3.61 L (4.6-6.20) M/mm3 Hgb 11.9 L (14.0-18.0) g/dL Hct 36.6 L (42.0-52.0) % MCV 101.4 H (80-100) fl MCH 33.0 (26-34) pg MCHC 32.5 (32-36) g/dl RDW 16.1 H (11.5-14.5) % Plt Count 274 (150-375) k/mm3 MPV 9.3 (7.4-10.4) fl Immature Gran % (Auto) 0.7 H (0-0.5) % Neut % (Auto) 74.2 H (45.5-73.1) % Lymph % (Auto) 11.3 L (18.3-44.2) % [place] % (Auto) 10.5 H (2.6-8.5) % Eos % (Auto) 2.9 (0-4.4) % Baso % (Auto) 0.4 (0.2-1.2) % Lymph # (Auto) 1.15 (0.9-3.2) K/mm3 [place] # (Auto) 1.1 H (0.1-0.6) K/mm3 Eos # (Auto) 0.3 (0-0.3) K/mm3 Baso # (Auto) 0.0 (0.0-0.1) K/mm3 Abs Immat Gran (auto) 0.07 H (0.00-0.031) K/mm3 Absolute Neuts (auto) 7.5 H (1.3-6.7) K/mm3 Absolute Nucleated RBC 0.000 (0.0-0.012) K/mm3 Nucleated RBC % 0.0 (0.0-0.2) % PT 13.8 (11.1-14.7) Seconds INR 1.1 APTT 33.2 (22.3-36.8) Seconds Sodium 133 L (137-145) mmol/L Potassium 3.7 (3.4-5.0) mmol/L Chloride 99 (98-107) mmol/L Carbon Dioxide 30 (22-30) mmol/L Anion Gap 4 (4-12) mmol/L BUN 12 (9-20) mg/dL Creatinine 0.78 (0.7-1.3) mg/dL Estim Creat Clear Calc Not Reportable Estimated GFR > 60 (59 - ) Glucose 111 H (65-110) mg/dL Calcium 9.1 (8.4-10.2) mg/dL Total Bilirubin 0.3 (0.2-1.3) mg/dL AST 31 (17-59) U/L ALT 26 (6-50) U/L Alkaline Phosphatase 80 (38-126) U/L Troponin I < 0.012 (0.000-0.034) ng/mL NT-Pro-B Natriuret Pep 368 H (19.9-100) pg/mL Total Protein 7.1 (6.3-8.2) g/dL Albumin 3.7 (3.5-5.1) g/dL Urine Color Yellow (Yellow) Urine Appearance Clear (Clear) Urine pH 7.5 (5.0-9.0) Ur Specific [place] 1.017 (1.001-1.035) Urine Protein Negative (Negative) mg/dL Urine Glucose (UA) Negative (Negative) mg/dL Urine Ketones Negative (Negative) mg/dL Ur Blood (Man) Negative (Negative) Urine Nitrate Negative (Negative) Urine Bilirubin Negative (Negative) Urine Urobilinogen 1.0 (<2.0) mg/dL Leukocyte Esterase Rfl Negative (Negative) JAMES/UL Imaging Data Attestation: I personally reviewed and interpreted this imaging study as follows: Radiologist's impression: Impressions Chest X-Ray 12/19/24 18:02 IMPRESSION: 1. No acute cardiopulmonary findings given portable technique. Venous Doppler Study 12/19/24 19:45 IMPRESSION: 1. No DVT either leg. Discharge Plan Discharge Clinical Impression: Bilateral edema of lower extremity Patient Disposition: Home Condition: Stable Instructions: Antibiotic Form, Leg Edema (ED) Additional Instructions: Please return to the ER with any worsening symptoms. Follow-up with primary care provider as soon as possible. Take all medications as prescribed, including regularly scheduled medications. You will be prescribed Lasix for 3 days. Patient Language: Wallisian Prescriptions: New furosemide [Lasix] 40 mg tablet 40 mg PO DAILY Qty: 3 0RF No Action cholecalciferol (vitamin D3) [Vitamin D3] 125 mcg (5,000 unit) tablet 5,000 unit PO DAILY aspirin 325 mg tablet 325 mg PO DAILY multivitamin Capsule 1 cap PO DAILY vit C,T-Ny-huzns-lutein-zeaxan [id number] rw-wbnu-ly-mg capsule 1 tablet PO BID Rx Instructions: administer with meals ipratropium bromide 21 mcg (0.03 %) spray,non-aerosol 2 spray intranasal .COMPLEX Rx Instructions: 2 sprays intranasally; Restasis MultiDose 0.05 % drops 1 drp EACH EYE BID clobetasol 0.05 % solution 1 applic topical DAILY Qty: 50 1RF Xhance 93 mcg/actuation aerosol breath activated 1 spray intranasal Q12H leflunomide 20 mg tablet 20 mg PO DAILY lidocaine HCl 2 % jelly 1 applic TOPICAL BID PRN (Reason: pain) Qty: 30 3RF mupirocin 2 % ointment 1 applic topical TID Qty: 22 3RF triamcinolone acetonide 0.1 % cream 1 applic TOPICAL BID PRN (Reason: itching) Qty: 453.6 1RF pentoxifylline 400 mg tablet extended release 400 mg PO TID Qty: 270 1RF rosuvastatin 40 mg tablet See Rx Instructions .ROUTE .COMPLEX Qty: 90 1RF Dose Instruction: TAKE 1 TABLET BY MOUTH DAILY Rx Instructions: TAKE 1 TABLET BY MOUTH DAILY primidone 50 mg tablet See Rx Instructions .ROUTE .COMPLEX Qty: 360 1RF Dose Instruction: TAKE 1 TABLET 4 TIMES DAILY Rx Instructions: TAKE 1 TABLET 4 TIMES DAILY Follow-up/Referrals: Nadeem Paz MD [Primary Care Provider, Family Practice] Time of Disposition: 20:20
[2024-12-19 18:14] LABS: NT Pro B Type Natriuretic Pept 368 pg/mL (19.9-100); Troponin I < 0.012 ng/mL (0.000-0.034)
--- OUTSIDE RECORDS SUMMARY | 2024-12-19 18:53 | XMS_ITS | Clinical Summary ---
Author Organization [facility] Address [address] [address] Care Team Providers Care Product Design Manager Name Role Phone Nadeem Paz MD Primary Care Provider [phone] Cole Albright MD Unavailable [phone] Allergies Active Allergy Reactions Criticality Noted Date Comments Adhesive Rash Medium Bacitracin Rash Medium Benzalkonium Chloride Unknown 11/15/2024 Chlorhexidine Unknown 08/11/2022 Chlorhexidine Gluconate Rash Medium Gramicidin D Unknown 11/15/2024 Latex Rash Medium 11/15/2024 Neomycin Unknown 10/29/2018 Hggykzmw-Ldjgfiolpn-Prowvrliu Rash Medium Polymyxin B Unknown 11/15/2024 Medications [...] TWICE DAILY 454 g 11 0 Active cnvzstofjns-X3-s yaluronic acid 1,000 mg- 25 mcg-1.65 mg [...] (05/11/2022): Added automatically from request for surgery [id number] Stenosis of left carotid artery 01/22/2021 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 Carpal tunnel syndrome 06/03/2020 Full thickness rotator cuff tear 06/03/2020 Grade III hemorrhoids 10/31/2017 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 Overview (10/31/2017): Added automatically from request for surgery [id number] Unintended weight loss 08/30/2016 Inflamed seborrheic keratosis [...] Description 12/19/2024 11:45 AM CDT Office Visit [facility] at [address] [phone] France Chan NP Pain and swelling of left lower leg (Primary Dx); Pain and swelling of right lower leg; History of electrolyte imbalance 12/13/2024 11:05 AM CDT Ancillary Procedure [facility] Imaging at [address] [phone] Accidental fall, initial encounter 12/13/2024 11:00 AM CDT Ancillary Procedure [facility] Imaging at [address] [phone] Accidental fall, initial encounter 12/13/2024 10:55 AM CDT Ancillary Procedure [facility] Imaging at [address] [phone] Accidental fall, initial encounter 12/13/2024 10:30 AM CDT Office Visit [facility] at [address] [phone] Oriana Yang NP Accidental fall, initial encounter (Primary Dx); Skin tear of left elbow without complication, initial encounter; Acute right ankle pain; Left hand pain; Left wrist pain 12/03/2024 11:15 AM CDT Office Visit [facility] Surgery [address] [place] [phone] Cole Albright MD Anal intraepithelial neoplasia III (Primary Dx) 10/04/2024 12:45 PM CDT Office Visit [facility] at [address] [phone] Chani Walsh NP Swelling of left hand [...] on file Legal Sex Male 1:43 AM CHILDREN'[employer] BOOK AUTHOR Gender Identity Male 04/16/2021 5:35 PM CHILDREN'S BOOK AUTHOR Sexual Orientation Straight 04/16/2021 5: 35 PM CHILDREN[employer] AUTHOR Obstetrics History Last Filed Vital Signs Vital [...] 12/13/2024 12:09 PM - Electronically signed by Bne CAMPOS T: Report ID: [id number] Reading Location: [id number] Procedure Note Ben Vincent MD - 12/13/2024 [...] Ben Vincent M.D. LB T: Report ID: [id number] Reading Location: [id number] Oriana Yang NP IMG XR PROCEDURES Final [...] signed by Ben CAMPOS T: Report ID: [id number] Reading Location: [id number] Procedure Note Ben Vincent MD - 12/13/2024 [...] signed by Ben CAMPOS T: Report ID: [id number] Reading Location: [id number] Oriana Yang AUTOMATIC PROFILE SHAPER OPERATOR IMG XR PROCEDURES Final Result * XR [...] signed by Ben CAMPOS T: Report ID: [id number] Reading Location: [id number] Procedure Note Ben Vincent MD - 12/13/2024 [...] signed by Ben CAMPOS T: Report ID: [id number] Reading Location: [id number] Oriana Yang NP IM XR PROCEDURES Final [...] Observation, alternative treatment, no treatment and referral [place] protocol: Procedure explained and questions answered to patient or proxy's satisfaction: yes Patient identity confirmed: Verbally with patient Procedure details: Indications: open wounds Indications comment: Skin tear Wound location: left elbow. Wound age (days): 2 Dressing: Dressing applied: Telfa pad and Vaseline gauze Wrapped with: Elastic bandage 3 inch Post-procedure details: Procedure completion: Tolerated well, no immediate complications us Oriana Yang AUTOMATIC PROFILE SHAPER OPERATOR IN CLINIC/BEDSIDE ORDERABLES Fi nal Result * COLONOSCOPY (06/30/2022 8:45 AM CDT) Anatomical Region Laterality Modality Other Narrative Procedure Note Cole Albright MD - 06/30/2022 8:45 AM CDT [facility] Patient Name: Mesfin Haro Procedure Date: 06/30/2022 8:45 AM Date of : 1945 Admit Type: Outpatient Age: 77 Gender: Male Attending MD: Cole Albright M.D. Room: [facility] ENDOSCOPY ROOM 02 Note Status: Finalized [...] The scope was passed under direct vision.The [id number] Endoscsope was introduced through the anus and [...] On: 06/30/2022 8:45 AM Recognized by the [employer] for promoting quality in endoscopy Cole Albright MD ENDOSCOPY PROCEDURES Final R esult from Last 3 Months or Most Recently Relevant to Health Maintenance Insurance MEDICARE [facility] Address: [address] [address] [place] [address] [facility] MEDICARE [facility] [place] [address] [place] [address] MEDICARE [facility] Advance Directives For more information, please contact: [phone] * Full Code (Latest Code Status on File) Date Activated Date Inactivated Comments 06/30/2022 8:22 AM 06/30/2022 2:22 PM Care Teams Product Design Manager Relationship Specialty Start Date End Date Nadeem Paz MD PCP - General 06/13/14 Cole Albright MD [phone] [place] [address] Surgeon Colon and Rectal Surgery 07/22/21
--- OUTSIDE RECORDS SUMMARY | 2024-12-19 18:53 | XMS_ITS | Clinical Summary ---
Author Organization [facility] Address [address] [place] [address] Care Team Providers Care Program Manufacturing Leader Name Role Phone Nadeem Paz MD Primary Care Provider [phone] Source Comments [facility] [employer],non-owned Affiliates and Associated Physician Practices is amultiple site organization consisting of ambulatory clinics and hospital sitesin [place], [place], [place] and [place]. This disclosure is being madepursuant to the Care Everywhere program and may not contain all information available regarding this patient. Last updated 17.[facility] [employer] Allergies Active Allergy Reactions Criticality Noted Date Comments Adhesive Sensitivity Rash Medium 01/23/2021 Red rash, irritation and itching noted. Resolved with benadryl Bacitracin Rash Medium 06/02/2020 Chlorhexidine Gluconate Rash Medium 06/02/2020 Iwtwnvdm-Fpedsnztid-Dqnzxzzf n Itching Medium 04/03/2019 Medications * Be [...] Active ipratropium (Atrovent) 0.03 % nasal spray [place] 1-2 sprays into each nostril 3 times [...] Propionate (Xhance) 93 MCG/ACT EXHUIndications :Nasal congestion [place] 1 spray into each nostril 2 times [...] Description 09/18/2024 11:15 AM CDT Office Visit [facility] - Vascular Surgery [address] [place] [phone] Sunita Jade MD Bilateral carotid artery stenosis (Primary Dx) 09/18/2024 10:00 AM CDT - 09/18/2024 11:59 PM CDT Hospital Encounter [facility] VASCULAR US [address] [place] [address] Sunita Jade MD Discharge Disposition: Home or Self Care 09/18/2024 Travel from Last 3 Months Immunizations Immunization Administration Dates Next Due [facility] primary monoval ent 12+ yr 0.3mL Purple [...] Sex Assigned at Male 03/03/2021 12:51 PM EDUCATION PROGRAM COORDINATOR Legal Sex Male 4:31 AM EDUCATION PROGRAM COORDINATOR Gender Identity Male 03/03/2021 12:51 PM EDUCATION PROGRAM COORDINATOR Sexual Orientation Not on file Last Filed [...] Final from Last 3 Months Insurance MEDICARE [facility] [address] [id number] Advance Directives Documents on File Type Date Recorded Patient Web Development Director Expl anation Adv Directive/Living Will/POA 08/03/2021 6:24 AM Adv Directive/Living Will/POA 01/26/2021 9:50 AM * Full Code (Latest Code Status on File) Date Activated Date Inactivated Comments 01/22/2021 3:37 PM 01/23/2021 1:13 PM Care Teams Program Manufacturing Leader Relationship Specialty Start Date End Date Nadeem Paz MD [address] [place] [phone] PCP - General 03/14/19
--- OUTSIDE RECORDS SUMMARY | 2024-12-19 18:53 | XMS_ITS | Clinical Summary ---
Author Organization [facility] Address [address] [place] [address] Care Team Providers Care Supervisor Anodizing Name Role Phone Nadeem Paz MD Primary Care Provider [phone] Social History Tobacco Use Types Packs/Day Years [...] Insurance [employer] MEDICARE PART A Care Teams Supervisor Anodizing Relationship Specialty Start Date End Date Nadeem Paz MD PCP - General FAMILY PRACTICE 12/31/18
[2024-12-19] MEDS: FUROSEMIDE INJ 40 MG/4 ML VIAL IV PUSH (19:07)
== END 2024-12-19 21:23 | disposition home or self-care (01) ==
PROVIDERS: Emergency Medicine; Emergency Provider Registered Nurse; PCP Family Medicine
DX: R60.0 Localized edema (principal); I73.9 Peripheral vascular disease, unspecified; I10 Essential (primary) hypertension; E78.5 Hyperlipidemia, unspecified; R73.03 Prediabetes; N40.0 Benign prostatic hyperplasia without lower urinary tract symptoms; M19.90 Unspecified osteoarthritis, unspecified site; M06.9 Rheumatoid arthritis, unspecified; F17.200 Nicotine dependence, unspecified, uncomplicated; Z86.0100 Personal history of colon polyps, unspecified; Z79.82 Long term (current) use of aspirin; Z79.899 Other long term (current) drug therapy
CPT/HCPCS: 36415; 71045; 80053; 81003; 83880; 84484; 85025; 85610; 85730; 93005; 93970; 96374; 99284; J1938

== ENCOUNTER 2024-12-20 14:49 | Outpatient (CLI) | payer OTHER, SELFPAY ==
--- NOTE | ~2024-12-20 | XR_ITS ---
EXAMINATION: XR shoulder RT min 2V, 12/20/2024 15:15 CDT HISTORY: MUTLIPLE JOINT PAIN COMPARISON: No comparisons available. Findings: No acute fracture or malalignment. Moderate degenerative changes Within the visualized lung parenchyma and multiple probable calcified granulomas otherwise soft tissues are unremarkable. Impression: No acute fracture or malalignment. Reviewed, dictated and finalized at location P. Impression: No acute fracture or malalignment.
--- NOTE | ~2024-12-20 | XR_ITS ---
EXAMINATION: XR foot RT 2V, 12/20/2024 15:15 CDT HISTORY: MUTLIPLE JOINT PAIN COMPARISON: No comparisons available. Findings: No acute fracture or malalignment. Moderate degenerative changes of the first metatarsal phalangeal joint, no erosions are identified Soft tissues unremarkable. Impression: No acute fracture or malalignment. Reviewed, dictated and finalized at location P. Impression: No acute fracture or malalignment.
--- NOTE | ~2024-12-20 | XR_ITS ---
EXAMINATION: XR hip LT min 2V, 12/20/2024 15:15 CDT HISTORY: MUTLIPLE JOINT PAIN COMPARISON: No comparisons available. Findings: No acute fracture or malalignment. No significant degenerative changes. Soft tissues unremarkable. Impression: No acute fracture or malalignment. Reviewed, dictated and finalized at location P. Impression: No acute fracture or malalignment.
--- NOTE | ~2024-12-20 | XR_ITS ---
EXAMINATION: XR hand RT 2V, 12/20/2024 15:15 CDT HISTORY: MUTLIPLE JOINT PAIN COMPARISON: No comparisons available. Findings: No acute fracture or malalignment. Moderate degenerative changes of the distal and proximal interphalangeal joints, no erosions are identified Soft tissues unremarkable. Impression: No acute fracture or malalignment. Reviewed, dictated and finalized at location P. Impression: No acute fracture or malalignment.
--- NOTE | ~2024-12-20 | XR_ITS ---
EXAMINATION: XR wrist RT min 3V, 12/20/2024 15:15 CDT HISTORY: MUTLIPLE JOINT PAIN COMPARISON: No comparisons available. Findings: Remote corticated fracture ulnar styloid process, no acute fracture No significant degenerative changes. Soft tissues unremarkable. Impression: No acute fracture or malalignment. Reviewed, dictated and finalized at location P. Impression: No acute fracture or malalignment.
--- NOTE | ~2024-12-20 | XR_ITS ---
EXAMINATION: XR ankle RT 2V, 12/20/2024 15:15 CDT HISTORY: MUTLIPLE JOINT PAIN COMPARISON: No comparisons available. Findings: No acute fracture or malalignment. No significant degenerative changes. Soft tissue swelling Impression: No acute fracture or malalignment. Reviewed, dictated and finalized at location P. Impression: No acute fracture or malalignment.
--- NOTE | ~2024-12-20 | XR_ITS ---
EXAMINATION: XR knee LT min 4V, 12/20/2024 15:15 CDT HISTORY: MUTLIPLE JOINT PAIN COMPARISON: No comparisons available. Findings: No acute fracture or malalignment. No significant degenerative changes. Soft tissues unremarkable. Impression: No acute fracture or malalignment. Reviewed, dictated and finalized at location P. Impression: No acute fracture or malalignment.
--- NOTE | ~2024-12-20 | XR_ITS ---
EXAMINATION: XR ankle LT min 3V, 12/20/2024 15:15 CDT HISTORY: MUTLIPLE JOINT PAIN COMPARISON: No comparisons available. Findings: No acute fracture or malalignment. No significant degenerative changes. Soft tissues unremarkable. Impression: No acute fracture or malalignment. Reviewed, dictated and finalized at location P. Impression: No acute fracture or malalignment.
--- NOTE | ~2024-12-20 | XR_ITS ---
EXAMINATION: XR hand LT 2V, 12/20/2024 15:15 CDT HISTORY: MUTLIPLE JOINT PAIN COMPARISON: No comparisons available. Findings: No acute fracture or malalignment. Moderate degenerative changes of the distal and proximal interphalangeal joints, no erosions are identified Soft tissues unremarkable. Impression: No acute fracture or malalignment. Reviewed, dictated and finalized at location P. Impression: No acute fracture or malalignment.
--- NOTE | ~2024-12-20 | XR_ITS ---
EXAMINATION: XR_KNEE1-2VRT_CR, 12/20/2024 15:15 CDT HISTORY: MUTLIPLE JOINT PAIN COMPARISON: No comparisons available. Findings: No acute fracture or malalignment. No significant degenerative changes. Soft tissues unremarkable. Impression: No acute fracture or malalignment. Reviewed, dictated and finalized at location P. Impression: No acute fracture or malalignment.
--- NOTE | ~2024-12-20 | XR_ITS ---
EXAMINATION: XR wrist LT min 3V, 12/20/2024 15:15 CDT HISTORY: MUTLIPLE JOINT PAIN COMPARISON: No comparisons available. Findings: No acute fracture or malalignment. No significant degenerative changes. Soft tissues unremarkable. Impression: No acute fracture or malalignment. Reviewed, dictated and finalized at location P. Impression: No acute fracture or malalignment.
--- NOTE | ~2024-12-20 | XR_ITS ---
EXAMINATION: XR foot LT 2V, 12/20/2024 15:15 CDT HISTORY: MUTLIPLE JOINT PAIN COMPARISON: No comparisons available. Findings: No acute fracture or malalignment. Severe degenerative changes of the first metatarsal phalangeal joint, no erosions are identified Soft tissues unremarkable. Impression: No acute fracture or malalignment. Reviewed, dictated and finalized at location P. Impression: No acute fracture or malalignment.
--- NOTE | ~2024-12-20 | XR_ITS ---
EXAMINATION: XR shoulder LT min 2V, 12/20/2024 15:15 CDT HISTORY: MUTLIPLE JOINT PAIN COMPARISON: No comparisons available. Findings: No acute fracture or malalignment. No significant degenerative changes. Soft tissues unremarkable. Impression: No acute fracture or malalignment. Reviewed, dictated and finalized at location P. Impression: No acute fracture or malalignment.
== END 2024-12-20 14:50 | disposition home or self-care (01) ==
LOC: MICIMG 14:51
PROVIDERS: PCP Family Medicine; Visit Provider Internal Medicine Rheumatology
DX: M25.50 Pain in unspecified joint (principal)
CPT/HCPCS: 73030; 73100; 73110; 73120; 73130; 73502; 73521; 73560; 73564; 73600; 73610; 73620; 73630

== ENCOUNTER 2024-12-23 11:06 | Outpatient (CLI) | payer OTHER, SELFPAY ==
--- OUTSIDE RECORDS SUMMARY | 2024-12-23 12:49 | XMS_ITS | Clinical Summary ---
Author Organization [facility] Address [address] [place] [address] Care Team Providers Care Golf Sales Associate Name Role Phone Nadeem Paz MD Primary Care Provider [phone] Source Comments [facility],non-owned Affiliates and Associated Physician Practices is amultiple site organization consisting of ambulatory clinics and hospital sitesin [place], [place], [place] and [place]. This disclosure is being madepursuant to the Care Everywhere program and may not contain all information available regarding this patient. Last updated 17.[facility] Allergies Active Allergy Reactions Criticality Noted Date Comments Adhesive Sensitivity Rash Medium 01/23/2021 Red rash, irritation and itching noted. Resolved with benadryl Bacitracin Rash Medium 06/02/2020 Chlorhexidine Gluconate Rash Medium 06/02/2020 Kyyovezk-Soqqbekwyu-Onfbtwef n Itching Medium 04/03/2019 Medications * Be [...] Active ipratropium (Atrovent) 0.03 % nasal spray [place] 1-2 sprays into each nostril 3 times [...] Propionate (Xhance) 93 MCG/ACT EXHUIndications :Nasal congestion [place] 1 spray into each nostril 2 times daily 16 mL 11 4 Active Active Problems Problem Noted Date Diagnosed Date Stenosis of left carotid artery 01/22/2021 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 Carpal tunnel syndrome 06/03/2020 Full thickness rotator cuff tear 06/03/2020 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 Overview (06/03/2020): Description: Follows with Dr Albright Eczema 12/24/2012 Immunizations Immunization Administration Dates Next Due [email or web address] primary monoval ent 12+ yr 0.3mL Purple [...] Sex Assigned at Male 03/03/2021 12:51 PM CORRECTIONS UNIT SUPERVISOR Legal Sex Male 4:31 AM CORRECTIONS UNIT SUPERVISOR Gender Identity Male 03/03/2021 12:51 PM CORRECTIONS UNIT SUPERVISOR Sexual Orientation Not on file Last [...] 1-dose 75+ series) 06/21/2019 COVID-19 VACCINE ( - season) 2024 01/13/2022, 10/08/2021, 01/07/2021, Additional history [...] patient's age to complete this topic [place] [address] MEDICARE [facility] [address] [id number] [place] [address] Advance Directives Documents on File Type Date Recorded Patient Clam Sorter Expl anation Adv Directive/Living Will/POA 08/03/2021 6:24 AM Adv Directive/Living Will/POA 01/26/2021 9:50 AM * Full Code (Latest Code Status on File) Date Activated Date Inactivated Comments 01/22/2021 3:37 PM 01/23/2021 1:13 PM Care Teams Golf Sales Associate Relationship Specialty Start Date End Date Nadeem Paz MD [address] [place] [phone] PCP - General 03/14/19
--- OUTSIDE RECORDS SUMMARY | 2024-12-23 12:49 | XMS_ITS | Clinical Summary ---
Author Organization [facility] Address [address] [address] Care Team Providers Care Undergraduate Intern Name Role Phone Nadeem Paz MD Primary Care Provider [phone] Cole Albright MD Unavailable [phone] Allergies Active Allergy Reactions Criticality Noted Date Comments Adhesive Rash Medium Bacitracin Rash Medium Benzalkonium Chloride Unknown 11/15/2024 Chlorhexidine Unknown 08/11/2022 Chlorhexidine Gluconate Rash Medium Gramicidin D Unknown 11/15/2024 Latex Rash Medium 11/15/2024 Neomycin Unknown 10/29/2018 Owyxvdlf-Pfsjmdfxqm-Mvjuuvbzc Rash Medium Polymyxin B Unknown 11/15/2024 Medications [...] TWICE DAILY 454 g 11 0 Active kkrlygqrtih-D7-u yaluronic acid 1,000 mg- 25 mcg-1.65 mg [...] (05/11/2022): Added automatically from request for surgery [id number] Stenosis of left carotid artery 01/22/2021 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 Carpal tunnel syndrome 06/03/2020 Full thickness rotator cuff tear 06/03/2020 Grade III hemorrhoids 10/31/2017 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 Overview (10/31/2017): Added automatically from request for surgery [id number] Unintended weight loss 08/30/2016 Inflamed seborrheic keratosis [...] Description 12/19/2024 11:45 AM CDT Office Visit [facility] at [address] [phone] France Chan NP Pain and swelling of left lower leg (Primary Dx); Pain and swelling of right lower leg; History of electrolyte imbalance 12/13/2024 11:05 AM CDT Ancillary Procedure [facility] at [address] [phone] Accidental fall, initial encounter 12/13/2024 11:00 AM CDT Ancillary Procedure [facility] at [address] [phone] Accidental fall, initial encounter 12/13/2024 10:55 AM CDT Ancillary Procedure [facility] at [address] [phone] Accidental fall, initial encounter 12/13/2024 10:30 AM CDT Office Visit [facility] at [address] [phone] Oriana Yang NP Accidental fall, initial encounter (Primary Dx); Skin tear of left elbow without complication, initial encounter; Acute right ankle pain; Left hand pain; Left wrist pain 12/03/2024 11:15 AM CDT Office Visit [facility] [address] [place] [phone] Cole Albright MD Anal intraepithelial neoplasia III (Primary Dx) 10/04/2024 12:45 PM CDT Office Visit [facility] at [address] [phone] Chani Walsh NP Swelling of left hand [...] on file Legal Sex Male 1:43 AM MAGNETIC RESONANCE IMAGING DIRECTOR Gender Identity Male 04/16/2021 5:35 PM MAGNETIC RESONANCE IMAGING DIRECTOR Sexual Orientation Straight 04/16/2021 5: 35 PM MAGNETIC RESONANCE IMAGING DIRECTOR Obstetrics History Last Filed Vital Signs Vital [...] signed by Ben CAMPOS T: Report ID: [id number] Reading Location: [id number] Procedure Note Ben Vincent MD - 12/13/2024 [...] Ben Vincent M.D. LB T: Report ID: [id number] Reading Location: [id number] Oriana Yang NP IMG XR PROCEDURES Final [...] signed by Ben CAMPOS T: Report ID: [id number] Reading Location: [id number] Procedure Note Ben Vincent MD - 12/13/2024 [...] signed by Ben CAMPOS T: Report ID: [id number] Reading Location: [id number] Oriana Yang CHEF CONCIERGE IMG XR PROCEDURES Final Result * XR [...] signed by Ben CAMPOS T: Report ID: [id number] Reading Location: [id number] Procedure Note Ben Vincent MD - 12/13/2024 [...] signed by Ben CAMPOS T: Report ID: [id number] Reading Location: [id number] Oriana Yang NP IM XR PROCEDURES Final [...] Observation, alternative treatment, no treatment and referral [place] protocol: Procedure explained and questions answered to patient or proxy's satisfaction: yes Patient identity confirmed: Verbally with patient Procedure details: Indications: open wounds Indications comment: Skin tear Wound location: left elbow. Wound age (days): 1 Dressing: Dressing applied: Telfa pad and Vaseline gauze Wrapped with: Elastic bandage 3 inch Post-procedure details: Procedure completion: Tolerated well, no immediate complications us Oriana Yang CHEF CONCIERGE IN CLINIC/BEDSIDE ORDERABLES Fi nal Result * COLONOSCOPY (06/30/2022 8:45 AM CDT) Anatomical Region Laterality Modality Other Narrative Procedure Note Cole Albright MD - 06/30/2022 8:45 AM CDT [facility] Patient Name: Mesfin Haro Procedure Date: 06/30/2022 8:45 AM Date of : 1945 Admit Type: Outpatient Age: 77 Gender: Male Attending MD: Cole Albright M.D. Room: [facility] ENDOSCOPY ROOM 02 Note Status: Finalized [...] The scope was passed under direct vision.The [id number] Endoscsope was introduced through the anus and [...] On: 06/30/2022 8:45 AM Recognized by the [employer] for promoting quality in endoscopy Cole Albright MD ENDOSCOPY PROCEDURES Final R esult from Last 3 Months or Most Recently Relevant to Health Maintenance Insurance MEDICARE [facility] MEDICARE [facility] [place] [address] [place] [address] MEDICARE [facility] Advance Directives For more information, please contact: [phone] * Full Code (Latest Code Status on File) Date Activated Date Inactivated Comments 06/30/2022 8:22 AM 06/30/2022 2:22 PM Care Teams Undergraduate Intern Relationship Specialty Start Date End Date Nadeem Paz MD PCP - General 06/13/14 Cole Albright MD [id number] [place] [address] Surgeon Colon and Rectal Surgery 07/22/21
--- OUTSIDE RECORDS SUMMARY | 2024-12-23 12:49 | XMS_ITS | Clinical Summary ---
Author Organization [facility] Address [address] [place] [id number] Care Team Providers Care [employer] Advisor Name Role Phone Nadeem Paz MD Primary Care Provider [phone] Social History Tobacco Use Types Packs/Day Years [...] Insurance [employer] MEDICARE PART A Care Teams [employer] Advisor Relationship Specialty Start Date End Date Nadeem Paz MD PCP - General FAMILY PRACTICE 12/31/18
== END 2024-12-23 11:07 | disposition home or self-care (01) ==
LOC: ANHGOSHLAB 11:07
PROVIDERS: PCP Family Medicine; Visit Provider Nurse Practitioner Family
DX: E87.1 Hypo-osmolality and hyponatremia (principal)
CPT/HCPCS: 36415